=== PATIENT | female | born 1955 | race Caucasian/White ===

== ENCOUNTER → 2022-10-08 00:45 | Outpatient (CLI) | payer MEDICARE, SELFPAY ==
--- OUTSIDE RECORDS SUMMARY | 2022-10-08 00:47 | XMS_ITS | Encounter Summary ---
:1955 Author Organization [facility] Address [address] [place] [address] Care Team Providers Name Role Phone Unknown, Provider Primary Care Provider Encounter Details Date Type Department Care Team Description 05/07/2011 Results Only [facility] Nicole Morales MD Laboratory Services - [address] [address] [place] [address] [phone] Social History Tobacco Use Types Packs/Day Years Used Date Smoking Tobacco: Never Assessed Sex Assigned at Date Recorded Not on file documented as of this encounter Plan of Treatment Not on filedocumented as of this encounter Procedures Procedure Name Priority Date/Time Associated Diagnosis Comme [facility] SURGICAL PATHOLOGY Routine 05/07/2011 0:00 EDT Re sults for this procedure are i n the results section. documented in this encounter Results SURGICAL PATHOLOGY (05/07/2011 0:00 EDT) Component Value Ref Test Analysis Performed At [facility] Method Time Signature Pathology SURGICAL PATHOLOGY REPORT ? DUGLAS HER Report: Reports generated via electr artandseek interface contain original data; ? ASHELY RITCHIE however they are lacking the format of the original report. ? Caution should be taken when reading/interpreting unformatted reports. ? Name: ? JUSTINO, MARIAMA ? Accession #: ? [id number] ? : ? 1955 (Age: 55) ??F ? Collec t Date: ? 05/07/2011 ? Location: ? [facility] ? Re ceive Date: ? 05/18/2011 ? Provider: ERNIE BRIONESQUIST MD ? Copy to: ? Final Pathologic Diagnosis: ? Skin of leg, right, e xcision: ? 1. ?Melanocytic nevus, combined type (intradermal and deep penetrating ?? types). ??See comment. ? - Margins of excision negative. ? Comment: ? Deeper levels have be en examined on block (A1). This case has been reviewed by Dr. Merry Juarez who conc urs with the above diagnosis. ??(Dr. Yanez)/ljn ? Document reviewed and electr onically signed by: ? LA YANEZ MD ? Report ??Date: 05/25/2011 16 :52 ? By the signature above, the attending physician certifies that he/she has ? personally conducted a gross and/or microscopic examination of the described ? specimens and rendered or co nfirmed the above diagnosis. ? Specimen(s) Received: ? Atypical mole R leg ? Clinical History: ? Clinical diagnosis co de: 448.1 ? Gross Description: ? Received in formalin labelled Justino, Mariama and mole R leg is an ? unoriented elliptical excisi on of noriega-white skin measuring 1.1 x 0.6 cm and is ?? excised to a depth of 0.2 cm . ??There is a central, 0.2 x 0.2 cm, irregular, la macule. ??The margins are in ked. ??The specimen is serially sectioned and entirely submitted as (A1) central se ctions and (A2) tips reverse en face. ??(Arminda Mitchell)/[facility] ? End of Report ? Specimen (Source) Anatomical Collection Method Collection Time Re ceived Time Location / / Volume Laterality 05/07/2011 05/18/2011 11:3 0 EDT Ernie Morales MD PATHOLOGY ORDERABLES Performing Organization Address City/State/ZIP Code Phon e Number [facility] [address] [place] [address] SERVICES [facility] [address] [place] [address] documented in this encounter Visit Diagnoses Not on filedocumented in this encounter Care Teams Packaging Coordinator Relationship Specialty Start Date End Date Unknown, Provider, PCP - General 05/18/11 05/19/11 documented as of this encounter
--- OUTSIDE RECORDS SUMMARY | 2022-10-08 00:47 | XMS_ITS | Encounter Summary ---
:1955 Author Organization [facility] [place] [address] Care Team Providers Name Role Phone Ernie Morales MD Primary Care Provider Encounter Details Date Type Department Care Team Description 06/13/2020 Ancillary Mammography at [facility] ductal Procedure Chandrakant Meléndez MD carcinoma of right [address] [facility] breast [place], [place] [address] HEMATOLOGY/ONCOL [phone] [place] [address] Social History Tobacco Use Types Packs/Day Years Used Date Smoking Tobacco: Never Smokeless Tobacco: Never Alcohol Use Standard Drinks/Week Comments Not Asked 0.8 (1 standard drink = 0.6 oz pure alco hol) Sex Assigned at Date Recorded Female 07/09/2021 3:12 PM EDT documented as of this encounter Plan of Treatment Upcoming Encounters Date Type Specialty Care Team Description 10/27/2022 Appointment Radiology Carie Sands CRA OFFICER [address] [place], [place] [address] (Wo rk) 10/27/2022 Appointment Radiology Carie Sands CRA OFFICER [address] [place], [place] [address] (Wo rk) documented as of this encounter Procedures Procedure Name Priority Date/Time Associated Diagnosis Comme nts MAMMO SCREENING CAD Routine 06/13/2020 10:50 Infiltrating duct al Results for this AND VINNY LEFT AM EDT carcinoma of right procedur e are in breast the results section. documented in this encounter Results Mammo Screening Cad and Vinny Left (06/13/2020 10:50 AM EDT) Anatomical Region Laterality Modality Breast Left Mammography Specimen (Source) Anatomical Location Collection Method / Collectio n Time Received Time / Laterality Volume Impressions 06/15/2020 6:22 PM EDT There is no mammographic evidence of breast malignancy appreciated. Routine screening mammography is suggest ed. BIRADS 2: Benign Finding. A summary of these findings will be conv eyed to the patient by mail. Thank you for letting us participate in the care of this patient. For questions regarding this report, please contact e number below. ? Narrative 06/15/2020 6:22 PM EDT EXAMINATION: MAMMO SCREENING CAD AND VINNY LEFT CLINICAL HISTORY: f/u screening hx right mastectomy COMPARISON: Relevant prior in PACS. VIEWS: Left MLO and CC. In addition to r outine 2-D imaging, this exam was also performed with 3-D tomographic imaging i n the MLO and CC projections. CAD is reviewed. BREAST COMPOSITION: ??The breasts are al most entirely fatty. There is no mammographic evidence of a s uspicious mass, architectural distortion, or suspicious calcifications . 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
--- OUTSIDE RECORDS SUMMARY | 2022-10-08 00:47 | XMS_ITS | Encounter Summary ---
:1955 Author Organization [facility] [place] [address] Care Team Providers Name Role Phone Unknown Primary Care Provider Unavailable Reason for Visit Reason Onset Date Comments Pre Procedure Call 10/16/2021 Encounter Details Date Type Department Care Team Description 10/16/2021 Telephone Orthopaedics at [place] Devin Fernandez [place] [address] ORTHOPAEDIC SURG [place], [place] [address] (Wo rk) Social History Tobacco Use Types Packs/Day Years Used Date Smoking Tobacco: Never Smokeless Tobacco: Never Alcohol Use Standard Drinks/Week Comments Yes 0.8 (1 standard drink = 0.6 oz pure alco hol) very little Sex Assigned at Date Recorded Female 07/09/2021 3:12 PM EDT documented as of this encounter Miscellaneous Notes Telephone Encounter - Mari Antunez - 10/16/2021 9:29 AM EST Left a message for patient that she is scheduled here at for cardiology clearance on 11/18/21 @ 10:05am. Asked her to reach out to her local cardiologists office to have them fax her most recent office note to [phone]. documented in this encounter Plan of Treatment Upcoming Encounters Date Type Specialty Care Team Description 10/27/2022 Appointment Radiology Carie Sands , TICKET MANAGER [address] [place], [place] [address] (Wo rk) 10/27/2022 Appointment Radiology Carie Sands , TICKET MANAGER [address] [place], [place] [address] (Wo rk) documented as of this encounter Visit Diagnoses Not on filedocumented in this encounter Care Teams Manufacturing Engineering Technician Relationship Specialty Start Date End Date Unknown PCP - General 08/03/21 08/31/22 None documented as of this encounter
--- OUTSIDE RECORDS SUMMARY | 2022-10-08 00:47 | XMS_ITS | Encounter Summary ---
:1955 Author Organization [place] [address] Care Team Providers Name Role Phone Unknown Primary Care Provider Unavailable Reason for Visit Reason Onset Date Comments Pre Procedure Call 08/12/2022 Encounter Details Date Type Department Care Team Description 08/12/2022 Telephone Orthopaedics at [facility] Devin Fernandez [place] [address] ORTHOPAEDIC SURG [place] [address] (Wo rk) Social History Tobacco Use Types Packs/Day Years Used Date Smoking Tobacco: Never Smokeless Tobacco: Never Alcohol Use Standard Drinks/Week Comments Yes 0.8 (1 standard drink = 0.6 oz pure alco hol) very little Sex Assigned at Date Recorded Female 07/09/2021 3:12 PM EDT documented as of this encounter Miscellaneous Notes Telephone Encounter - Roxie Stack M - 08/12/2022 11:29 AM EDT Who is calling? Dania Best call back number: [phone] Best time to call back between 8:00 am & 5:00 pm: any time Can we leave a message? yes When is your procedure? 09/07/22 Who is your surgeon? Dr. Devin Fernandez What procedure are you having? LT CTR What is the question you would like to ask the clinical care team? Dania had her appointment with the housing grant analyst to clear her for her upcoming surgery. She said they would not send the note unless wecalled to request it. I called and spoke with Maribell in Dr. Mcgregor's office and provided the pre-op testing fax # [phone] for them to send the note from today, 08/12/22 to clear her for surgery. Contacted: Dr. Qasim Mcgregor's Office PH: [phone] documented in this encounter Plan of Treatment Upcoming Encounters Date Type Specialty Care Team Description 10/27/2022 Appointment Radiology Carie Sands APRN [address] [place], [place] [address] (Wo rk) 10/27/2022 Appointment Radiology Carie Sands APRN [address] [place], [place] [address] (Wo rk) documented as of this encounter Visit Diagnoses Not on filedocumented in this encounter Care Teams Mattress And Foundation Sewer Relationship Specialty Start Date End Date Unknown PCP - General 08/03/21 08/31/22 None documented as of this encounter
--- OUTSIDE RECORDS SUMMARY | 2022-10-08 00:47 | XMS_ITS | Encounter Summary ---
:1955 Author Organization [facility] [place] [address] Care Team Providers Name Role Phone Ernie Morales MD Primary Care Provider Encounter Details Date Type Department Care Team Description 05/10/2018 Hospital XRay at [facility] Lisandro Bermudez Primary osteoarthritis invol ving multiple joints; Encounter [facility] MD Savi [place] [address] RHE[address]AT[address]Y DEPT. [phone] [place], [place] [address] Social History Tobacco Use Types Packs/Day Years Used Date Smoking Tobacco: Never Smokeless Tobacco: Never Alcohol Use Standard Drinks/Week Comments Not Asked 0.8 (1 standard drink = 0.6 oz pure alco hol) Sex Assigned at Date Recorded Female 07/09/2021 3:12 PM EDT documented as of this encounter Medications at Time of Discharge Medication Sig Dispensed Refills Start Date End Date atenolol (TENORMIN) 25 mg daily. 0 03/28/2018 Tablet Cyanocobalamin 2,[address] under the 0 Tablet, Sublingual tongue daily. Coenzyme Q10 200 mg Capsule Take by mouth 0 daily. Potassium 99 mg Tablet Take by mouth 0 daily. loratadine (CLARITIN) 10 mg Take 10 mg by mouth 0 Tablet daily. cholecalciferol, vitamin D3, Take 200 mg by 0 (MAXIMUM D3 ORAL) mouth daily. simvastatin (ZOCOR) 20 mg Take 20 mg by mouth 0 0 04/02/2017 Tablet nightly. multivitamin (THERAGRAN) Take 1 tablet by 0 tablet mouth daily. aspirin 81 mg EC tablet Take 81 mg by mouth 0 three times a week. CIS Free Text Med - turkish 0 05/18/20 10 tincture CIS Free Text Med - Fish 0 05/18/2010 Keo-Uqttd5-Bav E-Flax Oil PARoxetine (PAXIL) 10 mg 20 MG = 2 0 05/18/2010 tablet Tablet(s), PO, q HS documented as of this encounter Plan of Treatment Upcoming Encounters Date Type Specialty Care Team Description 10/27/2022 Appointment Radiology Carie Sands APRN [address] [place] [place], [place] [address] (Wo rk) 10/27/2022 Appointment Radiology Carie Sands APRN [address] [place] [place], [place] [address] (Wo rk) documented as of this encounter Procedures Procedure Name Priority Date/Time Associated Diagnosis Comme nts XR HANDS MIN 3 Routine 05/10/2018 2:37 PM Primary osteoarthrit is Results for this VIEWS BILAT EDT involving multiple procedure are in joints the results Inflammatory arthritis secti on. documented in this encounter Results XR Hands Min 3 views Bilat (05/10/2018 2:37 PM EDT) Anatomical Region Laterality Modality Hand Bilateral Digital Radiography Specimen (Source) Anatomical Location Collection Method / Collectio n Time Received Time / Laterality Volume Impressions 05/10/2018 4:41 PM EDT 1. ??Multifocal osteoarthropathy, most severe in the left first carpometacarpal joint. 2. ??No abnormal soft tissue calcificati ons to suggest crystal deposition arthropathy. 3. ??Questionable nonspecific erosion ve rsus sequela of old injury of the left radial styloid process where there is mi ld osseous irregularity in a rounded configuration. Narrative 05/10/2018 4:41 PM EDT EXAMINATION: XR HANDS MIN 3 VIEWS BILAT CLINICAL HISTORY: Osteoarthritis with in flammatory component, castro at #1 IP and MCP bilaterally. ?? Evidence of crstal d isease? TECHNIQUE: PA, oblique, lateral, and ball-catcher's views of the bilateral hands. COMPARISON: None FINDINGS: No visible fracture or malalignment. No focal soft tissue swelling or abnormal soft tissue calcifications. Severe osteo arthropathy of the left first carpometacarpal joint where there is sev ere joint space narrowing, subchondral sclerosis, marginal osteophyte formation . Mild multifocal osteoarthropathy of the thumb and fingers, most pronounced a t the index finger and small finger DIP joints. There is mild osteoarthropathy o f the thumb IP and MCP joints. Mild irregularity of the left radial styloid process which could reflect sequela of old injury versus a small nonspecific er osion. Procedure Note Yanira Perez MD - 05/10/2018Formattin g of this note might be different from the original. EXAMINATION: XR HANDS MIN 3 VIEWS BILAT CLINICAL HISTORY: Osteoarthritis with in flammatory component, castro at #1 IP and MCP bilaterally. Evidence of crstal dise ase? TECHNIQUE: PA, oblique, lateral, and ball-catcher's views of the bilateral hands. COMPARISON: None FINDINGS: No visible fracture or malalignment. No focal soft tissue swelling or abnormal soft tissue calcifications. Severe osteo arthropathy of the left first carpometacarpal joint where there is sev ere joint space narrowing, subchondral sclerosis, marginal osteophyte formation . Mild multifocal osteoarthropathy of the thumb and fingers, most pronounced a t the index finger and small finger DIP joints. There is mild osteoarthropathy o f the thumb IP and MCP joints. Mild irregularity of the left radial styloid process which could reflect sequela of old injury versus a small nonspecific er osion. IMPRESSION 1. Multifocal osteoarthropathy, most sev ere in the left first carpometacarpal joint. 2. No abnormal soft tissue calcification s to suggest crystal deposition arthropathy. 3. Questionable nonspecific erosion vers us sequela of old injury of the left radial styloid process where there is mi ld osseous irregularity in a rounded configuration. Lisandro Bermudez MD IMG DX ORDERABLES documented in this encounter Visit Diagnoses Diagnosis Primary osteoarthritis involving multipl e joints Inflammatory arthritis Unspecified inflammatory polyarthropathy documented in this encounter Care Teams Pegger Relationship Specialty Start Date End Date Ernie Morales MD PCP - General 10/13/10 08/02/21 documented as of this encounter
--- OUTSIDE RECORDS SUMMARY | 2022-10-08 00:47 | XMS_ITS | Encounter Summary ---
:1955 Author Organization [facility] [place] [address] Care Team Providers Name Role Phone Ernie Morales MD Primary Care Provider Reason for Referral Consultation (Routine) - Closed Specialty Diagnoses / Procedures Referred By Contact Refer red To Contact Neurology Diagnoses Numbness and tingling of left hand Chayo Vega PA Ndp Neurology [facility] [address] R [address] [place] [address] [place] [phone] Fax: Referral ID Status Reason Start Date Expiration Date Visits V isits Requested Authorized [id number] Closed Consult, 04/03/2021 04/03/2022 1 1 Test & Treat Encounter Details Date Type Department Care Team Description 04/03/2021 Telephone Orthopaedics at [facility] [place] [address] Social History Tobacco Use Types Packs/Day Years Used Date Smoking Tobacco: Never Smokeless Tobacco: Never Alcohol Use Standard Drinks/Week Comments Not Asked 0.8 (1 standard drink = 0.6 oz pure alco hol) Sex Assigned at Date Recorded Female 07/09/2021 3:12 PM EDT documented as of this encounter Miscellaneous Notes Telephone Encounter - Zachery [place] - 04/03/2021 2:14 PM EDT Patient calls in requesting that a referral for an EM[place] be [place] as they have earlier openings than the [place] location (June 2021). A new referral was generated and sent to [facility]. All questions and concerns were answered at this time. documented in this encounter Plan of Treatment Upcoming Encounters Date Type Specialty Care Team Description 10/27/2022 Appointment Radiology Carie Sands , CARTON GLUING MACHINE OPERATOR [address] [place], [place] [address] (Wo rk) 10/27/2022 Appointment Radiology Carie Sands APRN [address] [place], [place] [address] (Wo rk) Scheduled Referrals Name Type Priority Associated Diagnoses Order S chedule Referral to Outpatient Referral Routine Numbness and Ordered: Neurology tingling of left 04/03/2021 hand documented as of this encounter Visit Diagnoses Diagnosis Numbness and tingling of left hand documented in this encounter Care Teams Assistant Gm Of Content & Delivery Relationship Specialty Start Date End Date Ernie Morales MD PCP - General 10/13/10 08/02/21 documented as of this encounter
--- OUTSIDE RECORDS SUMMARY | 2022-10-08 00:47 | XMS_ITS | Encounter Summary ---
:1955 Author Organization [facility] [place] [address] Care Team Providers Name Role Phone Ernie Morales MD Primary Care Provider Reason for Referral Consultation (Routine) - Closed Specialty Diagnoses / Procedures Referred By Contact Refer red To Contact Hematology and Oncology Diagnoses Infiltrating ductal carcinoma of right breast Family history of breast cancer in sister Dania Hillman, [facility] Hem Onc Office [address] [address] HEMATOLOGY/[place] [address] Referral ID Status Reason Start Date Expiration Date Visits V isits Requested Authorized [id number] Closed Consult, 07/01/2020 07/01/2021 1 1 Test & Treat Reason for Visit Reason Comments Follow-up Encounter Details Date Type Department Care Team Description 07/01/2020 Office Visit Hematology Dania Ornelas MD [facility] HEMATOLOGY/[place] [address] 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; Oncology at [facility] She Salvador MD [facility] HEMATOLOGY [place] [address] [place] [address] Social History Tobacco Use Types Packs/Day Years Used Date Smoking Tobacco: Never Smokeless Tobacco: Never Alcohol Use Standard Drinks/Week Comments Not Asked 0.8 (1 standard drink = 0.6 oz pure alco hol) Sex Assigned at Date Recorded Female 07/09/2021 3:12 PM EDT documented as of this encounter Last Filed Vital Signs Vital Sign Reading Time Taken Comments Blood Pressure 126/69 07/01/2020 1:27 PM EDT Pulse 51 07/01/2020 1:27 PM EDT Temperature 36.8 ??C (98.2 ??F) 07/01/2020 1:27 PM EDT Respiratory Rate 18 07/01/2020 1:27 PM EDT Oxygen Saturation 97% 07/01/2020 1:27 PM EDT Inhaled Oxygen Concentration - - Weight 89.4 kg (197 lb) 07/01/2020 1:27 PM EDT Height 160 cm (5' 2.99) 07/01/2020 1:27 PM EDT Body Mass Index 34.91 07/01/2020 1:27 PM EDT documented in this encounter Progress Notes Dania Hillman MD - 07/01/2020 1:30 PM EDT Subjective: Patient ID: Dania Adams is a 64 y.o. female. Cc: breast cancer Interval history: Dania is here for routine f/u. She is doing well. No concerns today. She had her mammogram done in [place] because the cost was much lower, $500 instead of $900 here, and with insurance coverage it was reduced to $200. She also had blood work in January with her PCP showing an elevated calcium, repeat in May was normal. HPI right breast, August 1997. a. 5-mm cancer, 0/9 lymph nodes involved with tumor. c. s/p right modified radical mastectomy. 1. s/p tram reconstruction. 2. s/p left reduction mammoplasty. d. Immunohistochemistries weakly positive CA, negative ER. Review of Systems Constitutional: Negative. HENT: Negative. Eyes: Negative. Respiratory: Negative. Cardiovascular: Negative. Gastrointestinal: Negative. Endocrine: Negative. Genitourinary: Negative. Musculoskeletal: Negative. Skin: Negative. Allergic/Immunologic: Negative. Neurological: Negative. Hematological: Negative. Psychiatric/Behavioral: Negative. Objective: Physical Exam Vitals signs reviewed. HENT: Head: Normocephalic. Right Ear: External ear normal. Left Ear: External ear normal. Nose: Nose normal. Mouth/Throat: Mouth: Mucous membranes are moist. Eyes: Conjunctiva/sclera: Conjunctivae normal. Pupils: Pupils are equal, round, and reactive to light. Neck: Musculoskeletal: Normal range of motion. Cardiovascular: Rate and Rhythm: Normal rate. Pulses: Normal pulses. Pulmonary: Effort: Pulmonary effort is normal. No retractions. Chest: Chest wall: No lacerations, deformity, swelling, tenderness, crepitus or edema. Breasts: Right: No mass, skin change or tenderness. Left: No inverted nipple, mass, nipple discharge, skin change or tenderness. Abdominal: General: Bowel sounds are normal. Musculoskeletal: Normal range of motion. Skin: General: Skin is warm. Neurological: General: No focal deficit present. Mental Status: She is alert. Psychiatric: Mood and Affect: Mood normal. Behavior: Behavior normal. Thought Content: Thought content normal. Judgment: Judgment normal. Left mammo viewed independently by me , benign cat 2. FHx: mother had colon cancer Sister with lymphoma Paternal cousin with breast cancer and lymphoma Paternal cousin with melanoma MGM with breast cancer MGA with colon cancer No hx of genetic testing a son and a daughter are well Assessment and Plan: No problem-specific Assessment & Plan notes found for this encounter. #1 Breast cancer--64 yo with stage I right breast cancer T1bN0 ER neg CA low in 1996. 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
--- OUTSIDE RECORDS SUMMARY | 2022-10-08 00:47 | XMS_ITS | Encounter Summary ---
:1955 Author Organization [facility] [place] [address] Care Team Providers Name Role Phone Ernie Morales MD Primary Care Provider Reason for Visit Consultation (Routine) - Closed Specialty Diagnoses / Procedures Referred By Contact Refer red To Contact Neurology Diagnoses Numbness and tingling of left hand Chayo Vega PA [facility] 3c [facility] [place] [address] [place] [address] Referral ID Status Reason Start Date Expiration Date Visits V isits Requested Authorized [id number] Closed Consult, 03/18/2021 03/18/2022 1 1 Test & Treat Encounter Details Date Type Department Care Team Description 07/10/2021 Procedure visit Neurology at [facility] Trev Moon MD Carpal tunnel [facility] syndrome on left [facility] [address], [place], [place] [phone] Social History Tobacco Use Types Packs/Day Years Used Date Smoking Tobacco: Never Smokeless Tobacco: Never Alcohol Use Standard Drinks/Week Comments Yes 0.8 (1 standard drink = 0.6 oz pure alco hol) very little Sex Assigned at Date Recorded Female 07/09/2021 3:12 PM EDT documented as of this encounter Last Filed Vital Signs Vital Sign Reading Time Taken Comments Blood Pressure 128/73 07/10/2021 10:52 AM EDT Pulse 51 07/10/2021 10:52 AM EDT Temperature - - Respiratory Rate - - Oxygen Saturation - - Inhaled Oxygen Concentration - - Weight 85.2 kg (187 lb 12.8 07/10/2021 10:52 AM with sh oes on oz) EDT Height 160 cm (5' 3) 07/10/2021 10:52 AM reported EDT Body Mass Index 33.27 07/10/2021 10:52 AM EDT documented in this encounter Progress Notes Trev Moon MD - 07/10/2021 11:00 AM EDT Images from the original note were not included. NEUROLOGY CLINIC [facility] [address] [place] [id number] EMG/NCS REPORT 07/10/2021 Patient name: Dania Adams Date of : 1955 Referring provider: Chayo Vega PA [facility] DR ORTHOPAEDIC SURGERY [place] [id number] History and Examination: See clinic notes Ht 160 cm (5' 3) Comment: reported Wt 85.2 kg (187 lb 12.8 oz) Comment: with shoes on BMI 33.27kg/m?? Nerve Conduction Studies For sensory nerve conduction studies, the amplitude is measured [id number], the latency reported is the distal peak latency, and the conduction velocity, if measured, is determined from onset latencies and is over the extremity. For motor nerve conduction studies, the amplitude is measured [id number], the latency reportedis the distal onset latency,the conduction velocity is calculated over the extremity, and the F wavelatency is the minimum latency. Unless otherwise noted, the upper limb temperature was maintained above 31 degrees Celsius and lowerlimb above 30 degrees. Technologist: Bry Sensory Nerve Conduction Nerve / Sites Rec. Site Peak Lat TUBING DRIER Amp Ref. Distance Onset Andrea Ref. ms ??V ??V mm m/s m/s L Median - Ortho-Anti (Mid palm, Dig II) Mid Palm Wrist NR NR ?45.0 ?45.0 Dig II Wrist NR NR ?6.0 ?45.0 L Ulnar - Ortho-Anti (Dig V) Dig V Wrist 2.8 8.6 ?5.0 110 56.2 ?45.0 Motor Nerve Conduction Nerve / Sites Muscle Latency Ref. Amplitude Ref. Distance Velocity Ref. ms ms mV mV mm m/s m/s L Median - APB Wrist APB 5.3 ?4.2 6.0 ?4.5 80 Elbow APB 10.3 5.7 ?4.5 240 48.4 ?43.0 L Ulnar - ADM Wrist ADM 2.3 ?3.9 8.2 ?4.5 80 B.Elbow ADM 5.6 7.5 ?4.5 210 63.0 ?50.0 A.Elbow ADM 7.6 6.1 ?4.5 110 55.0 ?50.0 F Wave Nerve F Lat Ref. M Lat Min M Lat ms ms ms ms L Median - APB 31.8 ?32.0 5.7 5.7 L Ulnar - ADM 26.1 ?32.0 2.7 2.7 Electromyography The study was performed with a concentric needle electrode. Fibrillation and fasciculation activity is graded from none (0) to continuous (4+). The configuration and recruitment pattern of motor unit action potentials under voluntary control are described in the accompanying report. EMG Summary Table Spontaneous Activity Volitional MUAPs Muscle Fibs PSW Fasc Poly Amp Dur Recruit Activation L. FDI 0 0 0 NL NL NL Full MAX L. APB 0 0 0 NL NL NL Full MAX Findings ??? Absent left median sensory. ??? Low amplitude distal median motor latency on the left side. ??? Normal ulnar study left. ??? Needle examination with a concentric needle electrode of Left APB and FDI didn't show any denervation changes. Diagnostic Interpretation The study was ABNORMAL. 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 WRIST Notes Left CTS + Trev Moon MD Department of Neurology [facility] documented in this encounter Plan of Treatment Upcoming Encounters Date Type Specialty Care Team Description 10/27/2022 Appointment Radiology Carie Sands , DOCUMENT SCANNER [address] [place], [place] [address] (Wo rk) 10/27/2022 Appointment Radiology Carie Sands , DOCUMENT SCANNER [address] [place], [place] [address] (Wo rk) Scheduled Referrals Name Type Priority Associated Diagnoses Order S chedule Referral to Outpatient Referral Routine Numbness and Ordered: Neurology tingling of left 03/18/2021 hand documented as of this encounter Visit Diagnoses Diagnosis Carpal tunnel syndrome on left Carpal tunnel syndrome documented in this encounter Care Teams Bridge Painter Helper Relationship Specialty Start Date End Date Ernie Morales MD PCP - General 10/13/10 08/02/21 documented as of this encounter
--- OUTSIDE RECORDS SUMMARY | 2022-10-08 00:47 | XMS_ITS | Clinical Summary ---
:1955 Author Organization [facility] [place] [address] Care Team Providers Name Role Phone WichoCarie Keith ADAMS Primary Care Provider Allergies Active Allergy Reactions Severity Noted Date Comments Adhesive Tape skin blisters Morphine Sulfate 05/25/2018 Other react ion(s): decrease resp rate Unclassified Drug 05/12/2011 Some types of sutures Medications Medication Sig Dispensed Refills Start Date End Date Status CIS Free Text Med - kyrgyz tincture 0 Active CIS Free Text Med - Fish 0 05/18/2010 Active Cya-Onlae2-Ium E-Flax Oil Additional Information Patient taking differently: Oral 2 TIMES DAILY, Reported on 07/10/2021 PARoxetine (PAXIL) 10 mg tablet 20 MG = 2 Tablet(s), PO, q 0 05/18/2010 Active HS multivitamin (THERAGRAN) tablet Take 1 tablet by mouth 0 Active daily. aspirin 81 mg EC tablet Take 81 mg by mouth three 0 06/11/2011 Active times a week. simvastatin (ZOCOR) 20 mg Tablet Take 20 mg by mouth nightly. 0 04/02/2017 Active atenolol (TENORMIN) 25 mg Tablet daily. 0 018 Active Cyanocobalamin 2,500 mcg Tablet, Place under the tongue 0 Active Sublingual daily. Coenzyme Q10 200 mg Capsule Take by mouth daily. 0 Active Potassium 99 mg Tablet Take by mouth daily. 0 Active loratadine (CLARITIN) 10 mg Take 10 mg by mouth daily. 0 Active Tablet cholecalciferol, vitamin D3, Take 200 mg by mouth daily. 0 Active (MAXIMUM D3 ORAL) famotidine (Pepcid) 40 mg Tablet Take 40 mg by mouth nightly. 0 Active betamethasone valerate (VALISONE) Apply topically. 0 07/01/2021 Active 0.1 % Cream calcium-vitamin D3 600 mg Take by mouth. 0 Active calcium- 200 unit Capsule polycarbophil (FiberCon) 625 mg Take by mouth. 0 09/2021 Active Tablet amoxicillin (Amoxil) 250 mg Take 200 mg by mouth every 0 Active Capsule hour as needed. 1 hour prior to dental work atenoloL (Tenormin) 25 mg Tablet every 24 hours. 0 Active clobetasoL (Temovate) 0.05 % Every 12 hours. 0 Active Cream Active Problems Problem Noted Date Carpal tunnel syndrome on left 08/03/2021 Trigger finger, right ring finger 03/18/2021 Numbness and tingling of left hand 03/18/2021 Primary osteoarthritis involving multiple joints 05/10 Trigger finger 05/10/2018 Hypercalcemia 05/10/2018 Inflammatory arthritis 05/10/2018 Presence of left artificial knee joint 05/10/2018 Carpal tunnel syndrome, bilateral 05/10/2018 Infiltrating ductal carcinoma of breast 05/12/2011 Overview: right breast, August 1997. a. 5-mm cancer, 0/9 lymph nodes involved with tumor. c. s/p right modified radical mastectomy . 1. s/p tram reconstruction. 2. s/p left reduction mammoplasty. d. Immunohistochemistries weakly positiv e [place], negative ER. E. Adjuvant therapy was not recommended. GERD (gastroesophageal reflux disease) 05/12/2011 Hot flashes 05/12/2011 Overview: Longstanding h/o hot flashes. a. Marked improvement in past with effex or. b. Ongoing rx with paxil. 1. Trial of increased dose, 20 mg qhs, . Vertigo 05/12/2011 Overview: Intermittent episodes of vertigo. Encounters Date Type Specialty Care Team Description 09/21/2022 Office Visit Orthopaedics Salome Chawla, S/P endo scopic carpal PA tunnel release 09/21/2022 Travel 09/19/2022 Travel 09/07/2022 Anesthesia Event Surgery Leonardo Lincoln MD Whittaker, David M, CRNA 09/07/2022 Surgery Surgery Devin Fernandez MD ENDOSCO PY WRIST W/ RELEASE TRANSVE RSE CARPAL LIGAMENT (WRVU 6.39) 09/07/2022 Hospital Encounter Surgery Devin Fernandez MD 08/12/2022 Telephone Orthopaedics Devin Fernandez MD Pre Pro cedure Call from Last 3 Months Immunizations Name Administration Dates Next Due Influenza Vaccine PF, Quadrivalent (6-35 Mos) 08/11/2017 Influenza Vaccine, Whole 09/20/2005 Td Vaccine, Absorbed, Adult 01/20/2016 Zoster Vaccine, Live 12/04/2010 Family History Medical History Relation Comments Breast Cancer Cousin Breast Cancer Maternal Grandmother Relation Status Comments Cousin Alive Maternal Grandmother Social History Tobacco Use Types Packs/Day Years Used Date Smoking Tobacco: Never Smokeless Tobacco: Never Alcohol Use Standard Drinks/Week Comments Yes 0.8 (1 standard drink = 0.6 oz pure alco hol) very little Sex Assigned at Date Recorded Female 07/09/2021 3:12 PM EDT Last Filed Vital Signs Vital Sign Reading Time Taken Comments Blood Pressure 116/69 09/21/2022 9:07 AM EDT Pulse 56 09/07/2022 8:02 AM EDT Temperature 36.1 ??C (97 ??F) 09/07/2022 7:58 AM EDT Respiratory Rate 14 09/07/2022 7:58 AM EDT Oxygen Saturation 97% 09/07/2022 8:02 AM EDT Inhaled Oxygen Concentration - - Weight 87.5 kg (193 lb) 09/07/2022 6:27 AM EDT Height 160 cm (5' 3) 09/07/2022 6:27 AM EDT Body Mass Index 34.19 09/07/2022 6:27 AM EDT Plan of Treatment Upcoming Encounters Date Type Specialty Care Team Description 10/27/2022 Appointment Radiology Carie Sands , INSPECTOR FINAL ASSEMBLY MECHANICAL [address] [place] [id number] (Wo rk) 10/27/2022 Appointment Radiology Carie Sands , INSPECTOR FINAL ASSEMBLY MECHANICAL [address] [place], [place] [address] (Wo rk) Health Maintenance Due Date Last Done Comments Covid-19 Vaccine (#1) 03/26/1956 Hepatitis C Screening 1973 Tdap adult 1974 Breast Cancer Share Decision 1995 Needed Colonoscopy 2000 Zoster vaccine (2 of 3) 01/29/2011 12/04/2010 Pneumoccocal Vaccine: 65+ (1 - 2020 PCV) Diabetes Screening (HgbA1C or 05/10/2021 05/10/2018, 2016, Glucose) 05/12/2016, Additional history exists Breast Cancer screening 06/13/2022 06/13/2020, 05/25/2018, 05/18/2017, Additional history exists Influenza (Flu) vaccine (1 of 1 - 07/22/2022 08/11/2017, Influenza standard series) Tetanus vaccine 01/19/2026 01/20/2016 Bone Density Scan Completed 05/25/2018 Procedures Procedure Name Priority Date/Time Associated Comments Diagnosis ORDS - PROVIDER CARE 09/08/2022 12:00 AM Results for this SCAN EDT procedure are i n the results section. ENDOSCOPY WRIST W/ 09/07/2022 7:36 AM Carpal tunnel RELEASE TRANSVERSE EDT syndrome on left CARPAL LIGAMENT (WRVU 6.39) ORDS - PROVIDER CARE 09/03/2022 12:00 AM Results for this SCAN EDT procedure are i n the results section. ORDS - PROVIDER CARE 09/02/2022 12:00 AM Results for this SCAN EDT procedure are i n the results section. from Last 3 Months Results SCAN DOC: ORDS - PROVIDER CARE (09/08/2022 12:00 AM EDT)Only the most recent of3 resultswithin the time period is included. Narrative 09/08/2022 12:00 AM EDT This result has an attachment that is no t available. Ordered by an unspecified provider. Scanning Provider MEDIA MGR SCAN EXT ORDR/RSLT from Last 3 Months Insurance Payer Benefit Plan / Subscriber ID Effective Phone Address T ype Group Dates MEDICARE MEDICARE PART A [id number] 2020-Pre [phone] [id number] sent [address] [facility] [place] [phone] AETNA MEDICARE AETNA MEDICARE [id number] 2020-Pres [address] [address] [place] [address] Advance Directives Documents on File Type Date Recorded Patient Film Painter Explanati on Advance Directives and Living 01/19/2011 4:40 PM Will Care Teams Crm Solution Architect Relationship Specialty Start Date End Date Carie Sands APRN PCP - General Family Medicine 09/01/22 [address] [place] [address]
--- OUTSIDE RECORDS SUMMARY | 2022-10-08 00:47 | XMS_ITS | Clinical Summary ---
:1955 Author Organization [facility] Address [address] [place] [address] Care Team Providers Name Role Phone Ernie Morales MD Primary Care Provider Social History Tobacco Use Types Packs/Day Years Used Date Smoking Tobacco: Never Assessed Sex Assigned at Date Recorded Not on file Plan of Treatment Health Maintenance Due Date Last Done Comments Hepatitis C Screen 1955 COVID-19 Vaccine (#1) 03/26/1956 Fall Risk Screening 2020 Care Teams Test Desk Trouble Locator Relationship Specialty Start Date End Date Ernie Morales MD PCP - General 05/20/[address] [place] [address]
--- OUTSIDE RECORDS SUMMARY | 2022-10-08 00:47 | XMS_ITS | Encounter Summary ---
:1955 Author Organization [facility] [place] [address] Care Team Providers Name Role Phone Ernie Morales MD Primary Care Provider Encounter Details Date Type Department Care Team Description 03/18/2021 Hospital Encounter [place] [facility] [place], Devin Bilateral hand pain [address] [place] [address] Dr Pedrito MD [facility] [id number] [place] [phone] [place] [address] Social History Tobacco Use Types Packs/Day Years Used Date Smoking Tobacco: Never Smokeless Tobacco: Never Alcohol Use Standard Drinks/Week Comments Not Asked 0.8 (1 standard drink = 0.6 oz pure alco hol) Sex Assigned at Date Recorded Female 07/09/2021 3:12 PM EDT documented as of this encounter Medications at Time of Discharge Medication Sig Dispensed Refills Start Date End Date famotidine (Pepcid) 40 mg Take 40 mg by mouth 0 Tablet nightly. atenolol (TENORMIN) 25 mg daily. 0 03/28/2018 [...] a week. CIS Free Text Med - congolese 0 05/18/20 10 tincture CIS Free Text Med - Fish 0 05/18/2010 Cpe-Thgow7-Emu E-Flax Oil PARoxetine (PAXIL) 10 mg 20 MG = 2 0 05/18/2010 tablet Tablet(s), PO, q HS documented as of this encounter Plan of Treatment Upcoming Encounters Date Type Specialty Care Team Description 10/27/2022 Appointment Radiology Carie Sands APRN [address] [place], [place] [address] (Wo rk) 10/27/2022 Appointment Radiology Carie Sands APRN [address] [place], [place] [address] (Wo rk) documented as of this encounter Procedures Procedure Name Priority Date/Time Associated Diagnosis Comme nts XR HAND MIN 3 VIEWS Routine 03/18/2021 2:12 PM Bilateral hand pain Results for this BILAT EDT procedure are i n the results section. documented in this encounter Results XR Hand Min 3 views Bilat (Generic) (03/18/2021 2:12 PM EDT) Anatomical Region Laterality Modality Hand Bilateral Digital Radiography Specimen (Source) Anatomical Location Collection Method / Collectio n Time Received Time / Laterality Volume Impressions 03/18/2021 4:44 PM EDT Osteoarthropathy of all IP joints and bilateral basal joints. Thank you for letting us participate in the care of this patient. ??If you are a health care provider and have any questi ons regarding this report, please contact the number below. ??For patients who have questions please contact the health coronary care unit nurse that requested your imaging first. ? Electronically signed by: Jessica pitts MD, [facility] ([phone]), at 03/18/2021 4:44 PM Narrative 03/18/2021 4:44 PM EDT EXAMINATION: XR HAND MIN 3 VIEWS BILAT (GENERIC) CLINICAL HISTORY: bilateral hand pain, , entered by ordering service TECHNIQUE: 3 views each hand COMPARISON: April 2018. FINDINGS: BONES: Normal bone mineralization. No periostit is or ankylosis or acro osteolysis. SOFT TISSUES: No soft tissue calcifications. JOINTS: 2-5 IP joints- osteophytes arise from al l IP joints. There are scattered subchondral cysts mostly in PIP joints. The joint spaces are narrowed. 2-5 MCP joints- relative preserved joint spaces. Thumb (Basal, scaphoid trapezial trapezo id [STT] and 1 MCP & 1 IP joints)- bilateral basal joint osteoarthropathy w ith narrowed joint space and osteophyte formation more pronounced on the left. R elative normal STT joint spaces. Radial carpal joint- preserved joint spa maggy and no erosions. The irregularity at left radial styloid is unchanged and is well corticated. Distal radioulnar joint- congruent Procedure Note Jessica Nicholas MD - 03/18/2021Formatt ing of this note might be different from the original. EXAMINATION: XR HAND MIN 3 VIEWS BILAT ( GENERIC) CLINICAL HISTORY: bilateral hand pain, , entered by ordering service TECHNIQUE: 3 views each hand COMPARISON: April 2018. FINDINGS: BONES: Normal bone mineralization. No periostit is or ankylosis or acro osteolysis. SOFT TISSUES: No soft tissue calcifications. JOINTS: 2-5 IP joints- osteophytes arise from al l IP joints. There are scattered subchondral cysts mostly in PIP joints. The joint spaces are narrowed. 2-5 MCP joints- relative preserved joint spaces. Thumb (Basal, scaphoid trapezial trapezo id [STT] and 1 MCP & 1 IP joints)- bilateral basal joint osteoarthropathy w ith narrowed joint space and osteophyte formation more pronounced on the left. R elative normal STT joint spaces. Radial carpal joint- preserved joint spa maggy and no erosions. The irregularity at left radial styloid is unchanged and is well corticated. Distal radioulnar joint- congruent IMPRESSION Osteoarthropathy of all IP joints and bi lateral basal joints. Thank you for letting us participate in the care of this patient. If you are a health care provider and have any questi ons regarding this report, please contact the number below. For patients w ho have questions please contact the health coronary care unit nurse that requested your imaging first. Electronically signed by: Jessica Nicholas MD, Radiology [place] ([phone]), at 03/18/2021 4:44 PM Devin Fernandez MD IMG DX ORDERABLES documented in this encounter Visit Diagnoses Diagnosis Bilateral hand pain Pain in limb documented in this encounter Care Teams Straightening Press Operator Helper Relationship Specialty Start Date End Date Ernie Morales MD PCP - General 10/13/10 08/02/21 documented as of this encounter
--- OUTSIDE RECORDS SUMMARY | 2022-10-08 00:47 | XMS_ITS | Encounter Summary ---
:1955 Author Organization [facility] [place] [address] Care Team Providers Name Role Phone Carie Sands APRN Primary Care Provider Encounter Details Date Type Department Care Team Description 09/19/2022 Travel Social History Tobacco Use Types Packs/Day Years [...] 10/27/2022 Appointment Radiology Carie Sands APRN [address] [place], [place] [address] (Wo rk) 10/27/2022 Appointment Radiology Carie Sands APRN [address] [place], [place] [address] (Wo rk) documented as of this encounter Visit Diagnoses Not on filedocumented in this encounter Care Teams Supervisor Of Operations Relationship Specialty Start Date End Date Carie Sands APRN PCP - General Family Medicine 09/01/22 [address] [place] [address] documented as of this encounter
--- OUTSIDE RECORDS SUMMARY | 2022-10-08 00:47 | XMS_ITS | Encounter Summary ---
:1955 Author Organization [facility] Address [facility] [place] [address] Care Team Providers Name Role Phone Ernie Morales MD Primary Care Provider Encounter Details Date Type Department Care Team Description 05/25/2018 Hospital XRay at [facility] [place] Curtis Hung Infiltrating ductal carcinom a of breast, right; [facility] MD Carlos Hot flashes; [facility] Gastroesophageal reflux dise ase, esophagitis presence not specified [facility] [id number] HEMATOLOGY/ONCO [phone] [place] [address] Social History Tobacco Use Types Packs/Day Years [...] a week. CIS Free Text Med - japanese 0 05/18/20 10 tincture CIS Free Text Med - Fish 0 05/18/2010 Bir-Cogbz2-Wrp E-Flax Oil PARoxetine (PAXIL) 10 mg 20 MG = 2 0 05/18/2010 tablet Tablet(s), PO, q HS documented as of this encounter Plan of Treatment Upcoming Encounters Date Type Specialty Care Team Description 10/27/2022 Appointment Radiology Carie Sands CADWORX PIPING DESIGNER [address] [place], [place] [address] (Wo rk) 10/27/2022 Appointment Radiology Carie Sands APRN [address] [place], [place] [address] (Wo rk) documented as of this encounter Procedures Procedure Name Priority Date/Time Associated Diagnosis Comme nts DXA CENTRAL SPINE, Routine 05/25/2018 8:49 AM Infiltrating arturo gustavo Results for this HIP, AND/OR WHOLE EDT carcinoma of breast, pr ocedure are in BODY (GENERIC) right the results Hot flashes section. Gastroesophageal reflux disease, esophagitis presence not specified documented in this encounter Results DXA Central-Spine, Hip, And/Or Whole Body (Generic) (05/25/2018 8:49 AM EDT) Anatomical Region Laterality Modality C-spine, Hip N/A Other Specimen (Source) Anatomical Location Collection Method / Collectio n Time Received Time / Laterality Volume Impressions 05/26/2018 11:22 AM EDT * ??Osteopenia by WHO diagnostic criteria. The patient's lowest measurement is only slightly below lower limits of the normal range and is associated with minimal elevation an estimated relative risk. Estimating Fracture Risk: ? The relationship between bone mineral de nsity (BMD) and risk of fracture is well established. As BMD decreases, risk incr eases. Quantifying risk is difficult and is usually limited to estimation of the relative risk - a term which may have limited value when trying to discuss an individual's risk. Estimating the absolute risk for a patient requires an understanding of the incidence rate in a given population and consideration of mu ltiple, partially independent, risk factors in addition to BMD. ? The World Health Organization (WHO) has developed a fracture risk prediction tool that calculates a ten-year risk of major osteoporotic fracture based on femoral neck bone density measurements a nd nine clinical risk factors for individuals who have not been treated fo r osteoporosis. This is available through an interactive web-based [employer] (http://www.shef.ac.uk/FRAX/) and can be used to estimate a given patient's ab solute risk of major osteoporotic fracture or hip fracture over the next 1 0 years. These estimates may prove useful when discussing risk with a patie nt. It is important, however, to understand the tool's limitations and ho w a given individual's risk might differ from the tool's estimate. The tool does not take into account the dose-response associated with most risk factors. For e xample, the significant increase in risk associated with multiple prior fractures compared to a single prior fracture is not taken into account. Similarly, the l ocation of a previous fracture, the amount of glucocorticoids and number of cigarettes smoked are not considered. These limitations are discussed in a Fr equently Asked Questions section of the FRAX website which you are encouraged to review. ? DXA data sheets with BMD measurements an d plots are available in [employer] under the imaging tab. Paper copies will be sent to providers without E- access. If you have received this report without th e data sheet and do not have access to E-, please contact Radiology Transcrip tion at [phone] Tuesday thru Tuesday 8am-4pm. Narrative 05/26/2018 11:22 AM EDT EXAMINATION: DXA CENTRAL-SPINE, HIP, AND/OR WHOLE BODY (GENERIC) CLINICAL HISTORY: h/o breast cancer, ? o steoporosis, ? change from prior TECHNIQUE: Scans were acquired at the [place] mbar spine, left hip and left forearm . Densitometer: Hologic Discovery A COMPARISON: None FINDINGS: Lowest T-score at a diagnostic region of interest: T-score: -1.3, ALLI: Femoral neck, WHO di agnosis: Low bone mass or osteopenia. Procedure Note Fidencio Gaitan MD - 05/26/2018Forma tting of this note might be different from the original. EXAMINATION: DXA CENTRAL-SPINE, HIP, AND /OR WHOLE BODY (GENERIC) CLINICAL HISTORY: h/o breast cancer, ? o steoporosis, ? change from prior TECHNIQUE: Scans were acquired at the [place] mbar spine, left hip and left forearm . Densitometer: Hologic Discovery A COMPARISON: None FINDINGS: Lowest T-score at a diagnostic region of interest: T-score: -1.3, ALLI: Femoral neck, WHO di agnosis: Low bone mass or osteopenia. IMPRESSION * Osteopenia by WHO diagnostic criteria. The patient's lowest measurement is only slightly below lower limits of the normal range and is associated with minimal elevation an estimated relative risk. Estimating Fracture Risk: ? The relationship between bone mineral de nsity (BMD) and risk of fracture is well established. As BMD decreases, risk incr eases. Quantifying risk is difficult and is usually limited to estimation of the relative risk - a term which may have limited value when trying to discuss an individual's risk. Estimating the absolute risk for a patient requires an understanding of the incidence rate in a given population and consideration of mu ltiple, partially independent, risk factors in addition to BMD. ? The World Health Organization (WHO) has developed a fracture risk prediction tool that calculates a ten-year risk of major osteoporotic fracture based on femoral neck bone density measurements a nd nine clinical risk factors for individuals who have not been treated fo r osteoporosis. This is available through an interactive web-based [employer] (http://www.shef.ac.uk/FRAX/) and can be used to estimate a given patient's ab solute risk of major osteoporotic fracture or hip fracture over the next 1 0 years. These estimates may prove useful when discussing risk with a patie nt. It is important, however, to understand the tool's limitations and ho w a given individual's risk might differ from the tool's estimate. The tool does not take into account the dose-response associated with most risk factors. For e xample, the significant increase in risk associated with multiple prior fractures compared to a single prior fracture is not taken into account. Similarly, the l ocation of a previous fracture, the amount of glucocorticoids and number of cigarettes smoked are not considered. These limitations are discussed in a Fr equently Asked Questions section of the FRAX website which you are encouraged to review. ? DXA data sheets with BMD measurements an d plots are available in [employer] under the imaging tab. Paper copies will be sent to providers without E- access. If you have received this report without th e data sheet and do not have access to [employer], please contact Radiology Transcrip tion at [phone] Tuesday thru Tuesday 8am-4pm. Curtis Hung MD IMG DEXA ORDERABLES documented in this encounter Visit Diagnoses Diagnosis Infiltrating ductal carcinoma of breast, right Hot flashes Symptomatic menopausal or female climact iliana states Gastroesophageal reflux disease, esophag itis presence not specified documented in this encounter Care Teams Forming Process Worker Relationship Specialty Start Date End Date Ernie Morales MD PCP - General 10/13/10 08/02/21 documented as of this encounter
--- OUTSIDE RECORDS SUMMARY | 2022-10-08 00:47 | XMS_ITS | Encounter Summary ---
:1955 Author Organization [facility] [place] [address] Care Team Providers Name Role Phone Ernie Morales MD Primary Care Provider Encounter Details Date Type Department Care Team Description 07/10/2021 Notes Only Neurology [place] [facility] [place] [address] [place] [address] [place] [id number] [phone] (Wo rk) Social History Tobacco Use Types [...] Description 10/27/2022 Appointment Radiology Carie Sands , CLIENT RESOLUTION SPECIALIST [address] [place], [place] [address] (Wo rk) 10/27/2022 Appointment Radiology Carie Sands CLIENT RESOLUTION SPECIALIST [address] [place], [place] [address] (Wo rk) documented as of this encounter Visit Diagnoses Not on filedocumented in this encounter Care Teams Invoice Clerk Relationship Specialty Start Date End Date Ernie Morales MD PCP - General 10/13/10 08/02/21 documented as of this encounter
--- OUTSIDE RECORDS SUMMARY | 2022-10-08 00:47 | XMS_ITS | Encounter Summary ---
:1955 Author Organization [facility] [place] [address] Care Team Providers Name Role Phone WichoCarie lowe ANGIE Primary Care Provider Encounter Details Date Type Department Care Team Description 09/07/2022 Hospital Encounter Outpatient Surgery Keith Fernandez MD [facility] [place] [address] [place] [address] [phone] Social History Tobacco Use Types Packs/Day Years Used Date Smoking Tobacco: Never Smokeless Tobacco: Never Alcohol Use Standard Drinks/Week Comments Yes 0.8 (1 standard drink = 0.6 oz pure alco hol) very little Sex Assigned at Date Recorded Female 07/09/2021 3:12 PM EDT documented as of this encounter Last Filed Vital Signs Vital Sign Reading Time Taken Comments Blood Pressure 106/60 09/07/2022 8:02 AM EDT Pulse 56 09/07/2022 8:02 AM EDT Temperature 36.1 ??C (97 ??F) 09/07/2022 7:58 AM EDT Respiratory Rate 14 09/07/2022 7:58 AM EDT Oxygen Saturation 97% 09/07/2022 8:02 AM EDT Inhaled Oxygen Concentration - - Weight 87.5 kg (193 lb) 09/07/2022 6:27 AM EDT Height 160 cm (5' 3) 09/07/2022 6:27 AM EDT Body Mass Index 34.19 09/07/2022 6:27 AM EDT documented in this encounter Discharge Instructions Discharge Sandrita Lopez RN - 09/07/2022 8:04 AM EDT Moderate Sedation You may have received medication before and/or during your procedure, which affects your judgement and reaction time. Do not drive, operate machinery, drink alcoholic beverages, or make any legal decisions for 24 hours. Be careful on stairs, as you may be unsteady on your feet. You may eat a regular diet as tolerated. Do not smoke if you are alone. IV site -- slight redness, or tenderness is normal, you can use a warm compress. If tenderness and redness increases or foul drainage occurs, please contact your M. D. Questions or problems after 5pm or on a weekend: Call the [facility] marshmallow machine operator and ask for the physician on callcovering for your doctor. Patient Priti Valdivia MD - 09/07/2022 7:26 AM EDT Orthopaedic Hand Surgery Same Day Discharge Instructions: General Activities Diet: Start light and progress as tolerated. No alcoholic beverages on the day of surgery or while taking narcotics. If taking narcotics, make sure you are getting plenty of fluids and fiber. In general, care should be taken the first several days following surgery to limit strenuous activity. You want to avoid any activities that you may lose your balance, slip, trip, fall or re-injure your surgery. You may shower tomorrow. Cover your dressing/cast with a plastic bag to keep it dry. No driving while taking narcotic medications or wearing a device (splint, cast, sling, brace) that limits joint mobility. When you feel you can safely control your vehicle and respond to unpredictablesituations you may resume driving. Hand Use Decreased sensation for several hours following surgery is often from the local anesthesia used during the procedure. This will resolve on its own. If a regional anesthetic was used, wear your sling until you regain full function of your limb, andkeep a close eye on the positioning of your arm and hand. When you have regained function and sensation you may then remove the sling. Do not use your operative hand for any lifting, pushing or pulling. You may move your elbow and shoulder as tolerated. Gentle exercises with any exposed fingers are encouraged and gently opening and closing the digits will keep the joints flexible. Specific activities and exercises will be discussed at your first postoperative visit. Ice and elevation Some swelling is expected after surgery. Ice and elevation are the best remedies to reduce swelling and pain. Keep your hand properly elevated above the level of the heart i.e., fingers above palm, palm above the wrist, wrist above the elbow. Use pillows to increase elevation. Intermittently apply ice to the outside of the dressing for 20 minutes 6-8 times a day. You will want to ice and elevate for 5-7 days after surgery or as long as it hurts. Do not rely on a sling as it does not sufficiently elevate your hand. For proper elevation while walking around place your surgical hand on your opposite shoulder. Dressing/ Wound: The post-op dressing, splint or cast is a very important part of your treatment. If you have any questions please call us for clarification. If your dressing becomes wet or damaged please call the office. No creams, lotions or ointments on your incision. Keep steri-strips in place. They will fall off ontheir own Keep your dressing on and dry for 48 hours then you may remove. Cover your suture/incision with a Band-Aid and change as needed. Keep your incision clean and dry until follow-up appointment. Pain Management Most patients only require narcotics for a short period of time. Ice and elevation is an effective and important modality to use in conjunction with your oral pain medication. In a day or two you may be ready to start decreasing the amount of pain medication your taking. Pain medication is to be taken on an ???as needed?if needed?? basis. Remember to start with the least amount and evaluate its effectiveness. You should not drink alcoholic beverages while on pain medication. If tolerated, please take Tylenol three times a day in conjunction with the narcotic as they complement each other. Once pain is better controlled, you may simply take extra strength Tylenol, one to two tablets every six hours as needed. Do not exceed 3,000 mg in 24 hours. The most common side effects of narcotic pain medications are nausea and constipation. To decrease nausea always take pain medication with food. If you are experiencing vomiting, please call us right away. To minimize constipation, drink plenty of fluids, eat a high fiber diet with plenty of fruits and vegetables, and take a stool softener or laxative as needed. You may take an anti-inflammatory medication such as Ibuprofen/Advil/Motrin or Naproxen/Aleve. Referto the medication bottles for daily allowance and dosing. Discontinue if it causes stomach upset. Contact Information: During clinic hours M-F 8-4:30 please call [phone] If it is after 5:00PM on a weekday or a weekend and it is of an urgent nature please call [phone] and ask for the on-call orthopaedic resident. Call if: You have a fever greater than 101 F or experience chills Increased drainage from incision Redness or extreme swelling around incision Increased pain or change in pain that is not controlled with elevation, ice and your pain medication. Any questions concerns related to surgery documented in this encounter Medications at Time of Discharge Medication Sig Dispensed Refills Start Date End Date betamethasone valerate Apply topically. 0 021 (VALISONE) 0.1 % Cream calcium-vitamin D3 600 mg Take by mouth. 0 2020 calcium- 200 unit Capsule polycarbophil (FiberCon) 625 Take by mouth. 0 09/2021 mg Tablet famotidine (Pepcid) 40 mg Take 40 mg [...] a week. CIS Free Text Med - russian 0 05/18/20 10 tincture CIS Free Text Med - Fish 0 05/18/2010 [id number]-Geb E-Flax Oil PARoxetine (PAXIL) 10 mg 20 MG = 2 0 05/18/2010 tablet Tablet(s), PO, q HS amoxicillin (Amoxil) 250 mg Take 200 mg by 0 Capsule mouth every hour as needed. 1 hour prior to dental work documented as of this encounter Progress Notes Sandrita Doshi RN - 09/07/2022 8:16 AM EDT Discharge instructions and medications reviewed with patient and escortAlexandria. They verbalized understanding. All questions answered and written copy sent home with patient. Patient/escort encouraged to call with questions or concerns. Patient ambulated to car for discharge accompanied by [facility] staff member. documented in this encounter H&P Notes Chantale Fernandez MD - 09/07/2022 7:22 AM EDT Patient Name: Dania Adams Patient Age: 66 y.o. Birthdate: 1955 Admit date: 09/07/2022 Attending Physician: Chantale Fernandez MD Hand Surgery Preoperative H&P: Patient Name: Dania Adams Patient : 1955 Today's Date: 09/07/2022 Dania Adams is a 66 y.o. female with left carpal tunnel syndrome who presents today for left carpal tunnel release. No changes since last seen. Past Medical History: Diagnosis Date ??? Breast cancer 1996 RT breast CA Past Surgical History: Procedure Laterality Date ??? BREAST BIOPSY Right 1996 malignant needle bx ??? BREAST REDUCTION SURGERY Left 1996 at time of right mastectomy ??? MASTECTOMY Right 1996 with reconstruction ??? PRO UPPER GI ENDOSCOPY, BIOPSY 06/16/2011 UPPER GASTROINTESTINAL ENDOSCOPY,WITH BIOPSY SINGLE OR MULTIPLE performed by DOUGLAS COVINGTON I at [facility] ENDOSCOPY Family History Problem Relation Age of Onset ??? Breast Cancer Maternal Grandmother ??? Breast Cancer Cousin Social History Socioeconomic History ??? Marital status: Spouse name: Not on file ??? Number of children: Not on file ??? Years of education: Not on file ??? Highest education level: Not on file Occupational History ??? Not on file Tobacco Use ??? Smoking status: Never Smoker ??? Smokeless tobacco: Never Used Vaping Use ??? Vaping Use: Never used Substance and Sexual Activity ??? Alcohol use: Yes Alcohol/week: 0.8 standard drinks Types: 1 Standard drinks or equivalent per week Comment: very little ??? Drug use: No ??? Sexual activity: Yes Other Topics Concern ??? Not on file Social History Narrative ??? Not on file Social Determinants of Health Financial Resource Strain: Not on file Food Insecurity: Not on file Transportation Needs: Not on file Physical Activity: Not on file Housing Stability: Not on file Allergies Allergen Reactions ??? Adhesive Tape skin blisters ??? Other [Unclassified Drug] Some types of sutures Review of systems: As per HPI, otherwise non-contributory. Exam: General: NAD Resp: CTAB CV: normal rate, regular rhythm A/P: Dania Adams is a 66 y.o. female with carpal tunnel syndrome who presents for left carpal tunnel release. - Proceed to OR. The risks, benefits and indications were reviewed with the patient and there remains an indication for surgery. Consent signed. - Preoperative abx ordered Priti Alvarado MD Pager# [phone] I examined Dania Adams and I agree with Dr. Alvarado's note. CHANTALE FERNANDEZ MD documented in this encounter Miscellaneous Notes Op Note - Chantale Fernandez MD - 09/07/2022 7:47 AM EDT [facility] [place] Patient Name: Dania Adams : [id number] MR#: [id number] Case Date: 09/07/2022 Surgeon: Surgeon(s) and Role: * Chantale Fernandez MD - Primary PREOPERATIVE DIAGNOSIS: Left carpal tunnel syndrome. POSTOPERATIVE DIAGNOSIS: Left carpal tunnel syndrome. PROCEDURE PERFORMED: Endoscopic left carpal tunnel decompression. ANESTHESIA: Local with sedation. OPERATIVE INDICATION: The patient is a 66 y.o.-year-old Female with EMG proven left carpal syndrome.It was refractory to conservative treatment. She was brought to the operating room for endoscopic left carpal tunnel decompression. SUMMARY OF PROCEDURE: After 2 gm of intravenous cefazolin was administered, the patient's left upperextremity was prepped with Hibiclens scrub and ChloraPrep. Her left arm was draped in a sterile fashion. A preoperative time-out was performed as per [facility] protocol. 8mL of 2% lidocaine with epinephrinebuffered with sodium bicarbonate was injected over the median nerve at the level of the wrist as well as over the palmar side of the patient's left hand. Her left arm was then exsanguinated with an Esmarch bandage. A brachial tourniquet was inflated to 220 mmHg. A transverse incision was made at the palmar wrist crease in line with the ring finger ray. Subcutaneous spreading was performed in a blunt fashion down to the level of the investing fascia of the palmar surface of the forearm. Throughout this dissection, care was taken to avoid injury to subcutaneousneurovascular structures. The investing fascia was incised. It was elevated as a distally based flapwhich allowed for entry into the carpal tunnel. A synovial elevator was then used to dissect synovium from the undersurface of the transverse carpalligament. Small and large hamate finders were inserted into the carpal tunnel to confirm the proper level of entry. The Microaire endoscopic carpal tunnel release device was inserted into the carpal tunnel. It was passed distally until the distal edge of the transverse carpal ligament was well visualized. The blade was elevated. The device was withdrawn, transecting the transverse carpal ligament. The device was reinserted and complete release of the transverse carpal ligament was confirmed. Under direct vision, the investing fascia at of the palmar surface of forearm was released well proximal to the wrist incision site using tenotomy scissors. The incision was irrigated and was closed with 4-0 nylon suture. A sterile soft dressing was applied. The tourniquet was released with a total tourniquet time of 4 minutes. All digits rapidly became pink and warm with brisk capillary refill. She was then transferred to the recovery room in stable condition. Estimated blood loss was minimal. IV fluid replacement was 300 mL of crystalloid. She tolerated the procedure well without apparent complications. Attestation: Case Date: 09/07/2022 I performed this procedure without the involvement of a resident. CHANTALE FERNANDEZ MD 09/07/2022 Brief Op Note - Chantale Fernandez MD - 09/07/2022 7:34 AM EDT Brief Operative Note Patient Name: Dania Adams : [id number] MR#: [id number] Case Date: 09/07/2022 Surgeon: Surgeon(s) and Role: * Chantale Fernandez MD - Primary Preoperative diagnosis: Left carpal tunnel syndrome Postoperative diagnosis: Left carpal tunnel syndrome Procedure(s) (LRB): ENDOSCOPY WRIST W/ RELEASE TRANSVERSE CARPAL LIGAMENT (WRVU 6.39) (Left) Anesthesia: MAC Complications: None Intake: 300cc crystalloid Intraprocedure Crystalloid Total None Transfusion No data found in the last 1 encounters. Output: Estimated Blood Loss: None Urine Output:: (no urine output recorded) Other Output: (no other output recorded) Drains: None Specimens removed during surgery: None Disposition: aroused from sedation, and taken to the recovery room in a stable condition Condition: doing well without problems Attestation: Case Date: 09/07/2022 I performed this procedure without the involvement of a resident. documented in this encounter Plan of Treatment Upcoming Encounters Date Type Specialty Care Team Description 10/27/2022 Appointment Radiology Carie Sands APRN [address] [place], [place] [address] (Wo rk) 10/27/2022 Appointment Radiology Carie Sands APRN [address] [place], [place] [address] (Wo rk) documented as of this encounter Procedures Procedure Name Priority Date/Time Associated Diagnosis Comme nts ENDOSCOPY WRIST W/ 09/07/2022 7:36 AM EDT Carpal tunne l syndrome RELEASE TRANSVERSE on left CARPAL LIGAMENT (WRVU 6.39) documented in this encounter Visit Diagnoses Not on filedocumented in this encounter Active and Recently Administered Medications Times are shown in EDT. Scheduled Medication Order 09/05/2022 09/06/2022 09/07/2022 ceFAZolin (Ancef) 2 g vial attach to sod ium chloride 0.9% 100 mL Mini-Bag Plus (COMPLETED) 0740 (New Bag - Prov ider: Je Tobias CRNA) 2 g, Intravenous, ONCE, 1 dose, On Tue at 0745, Administer over 30 Minutes, Indication for (Active or Suspected): Prophylaxis Continuous Medication Order 09/05/2022 09/06/2022 09/07/2022 lactated ringers infusion (CANCELED) 0735 (New Bag - Provider: Je Tobias CRNA)0753 (Anesthesia Volume Adjustment - Provider: Je Tobias CRNA) 1,000 mL, at 100 mL/hr, Intravenous, CON TINUOUS, Starting on Tue09/07/22 at 0800, Until Tue09/07/22 at 0818, Day of Surgery (Day of Procedure) PRN Medication Order 09/05/2022 09/06/2022 09/07/2022 lidocaine-EPINEPHrine (pf) (2% - 1:200,000) injection (CANCELED) 0748 (Given - Provider: Chantale Fernandez MD - Comment: mixed with sodium bicarb 10:1. Total of 8ML given) ONCE PRN, Starting on Tue09/07/22 at 07 48, Until Tue09/07/22 at 1019, Intra- Operative (Intra-Procedure), Routine sodium chloride 0.9 % (flush) (BD PosiFl us Normal Saline 0.9) flush 5-20 mL (CANCELED) 0749 (Given - Provid er: Chantale Fernandez MD - Comment: mixed with 2% Lidocaine with epinephrine. Total of 8ml given) 5-20 mL, Intravenous, EVERY 1 MIN PRN, S tarting on Tue09/07/22 at 0732, Until Tue09/07/22 at 0818, flush, Flush pertains to all indwelling lines. Flush per protocol found in the job aid using the link provided on this medication record., Da y of Surgery (Day of Procedure), Routine No Frequency Medication Order 09/05/2022 09/06/2022 09/07/2022 sodium bicarbonate 8.4 % (1 meq/ml) IV solution 0715 (Due) 1 dose, Starting on Tue09/07/22 at 0701 , Until Tue09/07/22 at 1914, Nury Best.: cabinet override documented in this encounter Care Teams Restaurant Area Manager Relationship Specialty Start Date End Date Carie Sands APRN PCP - General Family Medicine 09/01/22 [address] [place] [address] documented as of this encounter
--- OUTSIDE RECORDS SUMMARY | 2022-10-08 00:47 | XMS_ITS | Encounter Summary ---
:1955 Author Organization [facility] [address] Care Team Providers Name Role Phone WichoCarie lowe ANGIE Primary Care Provider Encounter Details Date Type Department Care Team Description 09/07/2022 Surgery Outpatient Surgery Mark Fernandez MD ENDOSCOPY WRIST W/ Center [facility] RELEASE [facility] CARPAL LIGAMENT ([facility] ORTHOPAEDIC S URGERY 6.39) [place] [address] [place] [address] [phone] Social History Tobacco Use Types Packs/Day Years [...] documented in this encounter Discharge Instructions Discharge InstructionsSandrita Doshi RN - 09/07/2022 8:04 AM EDT Moderate [...] 5pm or on a weekend: Call the [facility] forwarder operator and ask for the physician on callcovering for your doctor. Patient InstructionsPriti Alvarado MD - 09/07/2022 7:26 AM EDT Orthopaedic [...] During clinic hours M-F 8-4:30 please call [phone] If it is after 5:00PM on a weekday or a weekend and it is of an urgent nature please call [phone] and ask for the on-call orthopaedic resident. [...] a week. CIS Free Text Med - chadian 0 05/18/20 10 tincture CIS Free Text Med - Fish 0 05/18/2010 Xtq-[id number]-Ooz E-Flax Oil PARoxetine (PAXIL) 10 mg 20 [...] time of right mastectomy ??? MASTECTOMY Right 1997 with reconstruction ??? PRO UPPER GI ENDOSCOPY, BIOPSY 06/16/2011 UPPER GASTROINTESTINAL ENDOSCOPY,WITH BIOPSY SINGLE OR MULTIPLE performed by DOUGLAS COVINGTON I at [facility] ENDOSCOPY Family History Problem Relation Age of [...] Preoperative abx ordered Priti Alvarado MD Pager# [phone] I examined Dania Adams and I agree with Dr. Alvarado's note. CHANTALE FERNANDEZ MD documented in this encounter Miscellaneous Notes Op Note - Chantale Fernandez MD - 09/07/2022 7:47 AM EDT [facility] [place] Patient Name: Dania Adams : [id number] MR#: [id number] Case Date: 09/07/2022 Surgeon: Surgeon(s) and Role: [...] A preoperative time-out was performed as per [facility] protocol. 8mL of 2% lidocaine with epinephrinebuffered [...] Operative Note Patient Name: Dania Adams : [id number] MR#: [id number] Case Date: 09/07/2022 Surgeon: Surgeon(s) and Role: [...] 10/27/2022 Appointment Radiology Carie Sands APRN [address] [place], [place] [address] (Wo rk) 10/27/2022 Appointment Radiology Carie Sands APRN [address] [place], [place] [address] (Wo rk) documented as of this encounter Procedures Procedure Name Priority Date/Time Associated Diagnosis Comme nts ENDOSCOPY WRIST W/ 09/07/2022 7:36 AM EDT Carpal tunne l syndrome RELEASE TRANSVERSE on left CARPAL LIGAMENT (WRVU 6.39) documented in this encounter Visit Diagnoses Diagnosis Carpal tunnel syndrome on left Carpal tunnel syndrome documented in this encounter Administered Medications Inactive Administered Medications - up to 3 most recent administrations Medication Order MAR Action Action Date Dose Rate Site lidocaine-EPINEPHrine (pf) (2% - Given 09/07/2022 7:48 AM EDT 7 mLs 1:200,000) injection ONCE PRN, Starting on Tue09/07/22 at 0748, Until Tue09/07/22 at 1019, Intra-Operative (Intra-Procedure), Routine sodium chloride 0.9 % (flush) Given 09/07/2022 7:49 AM EDT 1 mL 19- Surgical Site (BD PosiFlush Normal Saline 0.9) flush 5-20 mL 5-20 mL, Intravenous, EVERY 1 MIN PRN, Starting on Tue09/07/22 at 0732, Until Tue09/07/22 at 0818, flush, Flush pertains to all indwelling lines. Flush per protocol found in the job aid using the link provided on this medication record., Day of Surgery (Day of Procedure), Routine documented in this encounter Active and Recently Administered [...] sodium chloride 0.9 % (flush) (BD PosiFl ush Normal Saline 0.9) flush 5-20 mL (CANCELED) [...] 0701 , Until Tue09/07/22 at 1914, Nury Best: cabinet override documented in this encounter Care Teams Sander And Buffer Relationship Specialty Start Date End Date Carie Sands APRN PCP - General Family Medicine 09/01/22 [address] [place] [address] documented as of this encounter
--- OUTSIDE RECORDS SUMMARY | 2022-10-08 00:47 | XMS_ITS | Encounter Summary ---
:1955 Author Organization [facility] [place] [address] Care Team Providers Name Role Phone Carie Sands APRN Primary Care Provider Encounter Details Date Type Department Care Team Description 09/21/2022 Travel Social History Tobacco Use Types Packs/Day [...] 10/27/2022 Appointment Radiology Carie Sands APRN [address] [place], [place] [address] (Wo rk) 10/27/2022 Appointment Radiology Carie Sands APRN [address] [place], [place] [address] (Wo rk) documented as of this encounter Visit Diagnoses Not on filedocumented in this encounter Care Teams Charge Auditor Relationship Specialty Start Date End Date Carie Sands APRN PCP - General Family Medicine 09/01/22 [address] [place] [address] documented as of this encounter
--- OUTSIDE RECORDS SUMMARY | 2022-10-08 00:47 | XMS_ITS | Encounter Summary ---
:1955 Author Organization [facility] [place] [address] Care Team Providers Name Role Phone Ernie Morales MD Primary Care Provider Encounter Details Date Type Department Care Team Description 01/31/2020 Telephone Hematology and Oncol og[facility]ve at [facility] Lisa [place]audio, [place] [address] Social History Tobacco Use Types Packs/Day Years Used Date Smoking Tobacco: Never Smokeless Tobacco: Never Alcohol Use Standard Drinks/Week Comments Not Asked 0.8 (1 standard drink = 0.6 oz pure alco hol) Sex Assigned at Date Recorded Female 07/09/2021 3:12 PM EDT documented as of this encounter Miscellaneous Notes Telephone Encounter - Lisa Claudio RN - 01/31/2020 12:48 PM EDT Message received: Call back [phone] Dania would like to get a CBC w/ diff at [email or web address] in [place], [place]. Could an order be placed so I can send it over? Per MD: NO CBC, last was normal Plan: Asked loan secretary to notify patient of the above per MD documented in this encounter Plan of Treatment Upcoming Encounters Date Type Specialty Care Team Description 10/27/2022 Appointment Radiology WichoCindy lowekevin Parker , MANAGER DISASTER RECOVERY [address] [place], [place] [address] (Wo rk) 10/27/2022 Appointment Radiology WichoRadha lowemarisel Parker , MANAGER DISASTER RECOVERY [address] [place], [place] [address] (Wo rk) documented as of this encounter Visit Diagnoses Not on filedocumented in this encounter Care Teams Event Operations Manager Relationship Specialty Start Date End Date Ernie Morales MD PCP - General 10/13/10 08/02/21 documented as of this encounter
--- OUTSIDE RECORDS SUMMARY | 2022-10-08 00:47 | XMS_ITS | Encounter Summary ---
:1955 Author Organization [facility] [place] [address] Care Team Providers Name Role Phone Unknown Primary Care Provider Unavailable Reason for Visit Reason Comments Follow-up L EMG 07/10/21 Encounter Details Date Type Department Care Team Description 08/03/2021 Office Visit Orthopaedics at [facility] Devin Fernandez G, Trigger finger, right ring f noah; [facility] Carpal [place] [address] [facility] [phone] ORTHOPAEDIC SURGERY [place], [place] [address] Social History Tobacco Use Types Packs/Day Years Used Date Smoking Tobacco: Never Smokeless Tobacco: Never Alcohol Use Standard Drinks/Week Comments Yes 0.8 (1 standard drink = 0.6 oz pure alco hol) very little Sex Assigned at Date Recorded Female 07/09/2021 3:12 PM EDT documented as of this encounter Last Filed Vital Signs Vital Sign Reading Time Taken Comments Blood Pressure 134/67 08/03/2021 8:18 AM EDT Pulse 47 08/03/2021 8:18 AM EDT Temperature - - Respiratory Rate - - Oxygen Saturation - - Inhaled Oxygen Concentration - - Weight 83.9 kg (185 lb) 08/03/2021 8:18 AM EDT reported Height 158.8 cm (5' 2.5) 08/03/2021 8:18 AM EDT report ed Body Mass Index 33.3 08/03/2021 8:18 AM EDT documented in this encounter Progress Notes Chayo Vega PA - 08/03/2021 8:10 AM EDT PATIENT NAME: Dania Adams AGE: 65 y.o. MR#: [id number] DATE OF VISIT: 08/03/2021 STAFF: Dr. Fernandez The patient's is present for today's visit. CHIEF COMPLAINT: #1- Left long finger and thumb numbness x2 years #2- Right ring trigger finger x4 years HISTORY OF PRESENT ILLNESS: Ms. Adams is a right hand dominant 65 y.o. female who comes into clinic today for evaluation of bilateral hands. The patient has a history of SVT and inflammatory arthritis. The patient reports approximately 4 years of right ring finger triggering that was treated with one steroid injection in 2018 at the [facility] with full resolution with 1 year of relief. The triggering is worse with gripping and it does lock requiring manual release. She reports approximately 2 years of left long and thumb numbness with occasional inclusion of the index finger. She reports associated electric shocks in the wrist distally. She reports that the numbness in the long finger and дмитрий mb is now constant. She reports that she drops things. She does reports that her right hand is numb in the morning as well. She wears nocturnal splints with intermittent relief. Interval HPI: She reports worsening of her left thumb and middle finger with transient tingling of the index finger. She reports that her right ring trigger finger did not change after the steroid injection at her last visit on 03/18/21. She presents today for EMG/NSC result review. Medications and Allergies were reviewed in eD-H PAST MEDICAL HX: Past Medical History: Diagnosis Date ??? Breast cancer 1996 RT breast CA PAST SURGICAL HX: Past Surgical History: Procedure Laterality Date ??? BREAST BIOPSY Right 1997 malignant needle bx ??? BREAST REDUCTION SURGERY Left 1996 at time of right mastectomy ??? MASTECTOMY Right 1997 with reconstruction ??? PRO UPPER GI ENDOSCOPY, BIOPSY 06/16/2011 UPPER GASTROINTESTINAL ENDOSCOPY,WITH BIOPSY SINGLE OR MULTIPLE performed by DOUGLAS COVINGTON I at [facility] ENDOSCOPY FAMILY HX: Family History Problem Relation Age of Onset ??? Breast Cancer Maternal Grandmother ??? Breast Cancer Cousin SOCIAL HX: Social History Occupational History ??? Not on file Tobacco Use ??? Smoking status: Never Smoker ??? Smokeless tobacco: Never Used Vaping Use ??? Vaping Use: Never used Substance and Sexual Activity ??? Alcohol use: Yes Alcohol/week: 0.8 standard drinks Types: 1 Standard drinks or equivalent per week Comment: very little ??? Drug use: No ??? Sexual activity: Yes ROS: Constitutional: Denies fevers, chills Respiratory: Denies shortness of breath, cough Cardiac: Denies chest pain, palpitations GI: denies abdominal pain, nausea, vomiting Skin: Denies new rashes or lesions Neuro: Positive for numbness, tingling, and weakness Musculoskeletal: as above in HPI PHYSICAL EXAM: Ms. Adams is a 65 y.o. female General appearance: in no acute distress, alert, cooperative Psych: cooperative with exam, appropriate Head: normocephalic, atraumatic EENT: EOMI grossly intact Neck: supple, trachea midline Cardiac: regular rate and rhythm by peripheral pulse Lungs: non-labored respirations Musculoskeletal: ??? Inspection: No erythema, edema, ecchymosis, abrasions. ??? Palpation: TTP over right ring finger A1 lavell with palpable triggering. ??? ROM: Full ROM bilateral forearms, wrists, digits. ??? Orthopedic testing: Positive Tinel's on the left and negative on the right. Negative Stanley's bilaterally. Negative Phalen's on the right and positive on the left. ??? Neurovascular: SGILT R/M/U/Ax nerve distributions; AIN/PIN/U nerves fire; 2+ radial pulse DIAGNOSTIC STUDIES: EMGs/NCS from 07/10/21 were personally reviewed and demonstrate moderate left median neuropathy. ASSESSMENT: #1- Left long finger and thumb numbness, likely carpal tunnel syndrome #2- Right ring trigger finger PLAN: - The patient was advised that they have left carpal tunnel syndrome. They was given treatment options including nocturnal wrist splinting, corticosteroid injection although this will likely only provided transient relief, versus surgical carpal tunnel release. After extensive discussion of the benefits and risks of each option and answering all of the patient's questions, they would like to proceed with surgical decompression. Surgical consent for left carpal tunnel release was signed in the officetoday. - The patient was counseled on management options for their trigger finger including PIP joint nocturnal splinting versus additional A1 lavell steroid injection versus surgical A1 lavell release. Afterextensive discussion of the benefits and risks of each option and answering all of their questions, the patient would like to proceed with surgical release at a future date. Surgical consent for right ring finger trigger release in the office today. She will call when she would like to proceed with this. - The patient will obtain pre-op clearance from her baker chef. - She will return for follow up for left carpal tunnel release with Dr. Fernandez. - The patient understands to contact us if they have any other questions or concerns. Dr. Fernandez also evaluated and spoke with the patient at today's visit. Chayo Vega PA-C Department of Orthopaedics [facility] Pager: [phone] Gabrielle Talbot RN - 08/03/2021 8:10 AM EDT Pre op teaching done for endoscopic carpal tunnel release. Emphasis placed on post op hand elevationwith hand above heart,fingers above palm,palm above wrist and wrist above elbow. Discussed importance of flexing fingers against original dressing.Take dressing off on day 3 and fully flex and extend fingers.Place Band-Aid over suture,no ointments. Reviewed suggestions for taking post op pain medication. Questions solicited and answered to patient satisfaction. Written material provided. Patient knows to call with any additional questions or concerns. Devin Fernandez MD - 08/03/2021 8:10 AM EDT Dania Adams was seen in conjunction with Chayo TUCKER. She has EMG proven left carpal tunnel syndrome and describes more than 4 years of symptoms. We talked about the options of corticosteroid injection versus carpal tunnel decompression. She would like to proceed with carpal tunnel decompression. She is aware this likely will be done endoscopically although an open procedure may be needed. Sheis aware that with such surgery there are potential risks which include but are not limited to infection, neurovascular injury, incomplete or no relief of neurogenic symptoms, pillar pain, medication manager weakness, and recurrence of carpal tunnel syndrome. Her questions were solicited and answered and we will schedule this to be done. She will try to get an appointment with her baker chef prior to surgery. She also has a right ring trigger finger which did not respond to corticosteroid injection. She may wish to have this released at some point after her carpal tunnel release. documented in this encounter Plan of Treatment Upcoming Encounters Date Type Specialty Care Team Description 10/27/2022 Appointment Radiology Carie Sands APRN [address] [place], [place] [address] (Wo rk) 10/27/2022 Appointment Radiology Carie Sands APRN [address] [place], [place] [address] (Wo rk) documented as of this encounter Visit Diagnoses Diagnosis Trigger finger, right ring finger Carpal tunnel syndrome on left Carpal tunnel syndrome documented in this encounter Care Teams Film Processing Utility Worker Relationship Specialty Start Date End Date Unknown PCP - General 08/03/21 08/31/22 None documented as of this encounter
--- OUTSIDE RECORDS SUMMARY | 2022-10-08 00:47 | XMS_ITS | Encounter Summary ---
:1955 Author Organization [facility] [place] [address] Care Team Providers Name Role Phone Ernie Morales MD Primary Care Provider Encounter Details Date Type Department Care Team Description 11/26/2020 Ancillary Mammography at [place] ductal carcinoma of right breast; Procedure Chandrakant Gonzalez MD Breast pain, left [address] [place], [place] C[place] [address] HEMATOLOGY/ONCOL [phone] [place] [address] Social History Tobacco Use Types [...] 10/27/2022 Appointment Radiology Carie Sands APRN [address] [place], [place] [address] (Wo rk) 10/27/2022 Appointment Radiology Carie Sands EXTRUSION LINE OPERATOR [address] [place], [place] [address] (Wo rk) documented as of this encounter Procedures Procedure Name Priority Date/Time Associated Diagnosis Comme nts MAMMO DIAGNOSTIC Routine 11/26/2020 1:39 PM Infiltrating ducta l Results for this CAD AND VINNY LEFT EST carcinoma of right proc edure are in breast the results Breast pain, left section. documented in this encounter Results US Breast Limited Left (11/26/2020 2:12 PM EST) Anatomical Region Laterality Modality Breast Left Ultrasound Specimen (Source) Anatomical Location Collection Method / Collectio n Time Received Time / Laterality Volume Impressions 11/26/2020 2:20 PM EST BIRADS 2: Benign Finding. No mammographic or sonographic evidence of malignancy. Symptoms of pain should be followed clinically Otherwise, continued routine annual scre ening mammography. Results and plan were discussed with the patient at time of study. A summary of these results will be sent to the patien t by mail Thank you for letting us participate in the care of this patient. For questions regarding this report, please contact e number below. ? Narrative 11/26/2020 2:20 PM EST EXAMINATION: US ??BREAST LIMITED LEFT, MAMMO DIAGNOSTIC CAD AND VINNY LEFT CLINICAL HISTORY: History of right breas t cancer with new left breast pain priors; TECHNIQUE: MLO, CC, and compression views of the le ft breast were acquired using digital mammographic technique and 3-D tomosynth esis. Study was interpreted with the aid of CAD. COMPARISON: Mammographic studies dating back to 2010 FINDINGS: There are post reduction mammoplasty josselyn nges. The left breast is composed of scattered fibroglandular tissue without dominant mass, areas of architectural distortion, or clusters of microcalcific ations or interval change suggest malignancy. Subsequent ultrasound evalua tion of the left breast from the 9 to 11:00 position, 6 cm from the nipple, at site of pain, demonstrates normal fibroglandular tissues and post reductio n mammoplasty changes. No sonographic evidence of mass, cyst, or suspicious sh adowing. [place] MD IMG MAMMO ORDERABLES Mammo Diagnostic Cad and Vinny Left (11/26/2020 1:39 PM EST) Anatomical Region Laterality Modality Breast Left Mammography Specimen (Source) Anatomical Location Collection Method / Collectio n Time Received Time / Laterality Volume Impressions 11/26/2020 2:20 PM EST BIRADS 2: Benign Finding. No mammographic or sonographic evidence of malignancy. Symptoms of pain should be followed clinically Otherwise, continued routine annual scre ening mammography. Results and plan were discussed with the patient at time of study. A summary of these results will be sent to the patien t by mail Thank you for letting us participate in the care of this patient. For questions regarding this report, please contact e number below. ? Narrative 11/26/2020 2:20 PM EST EXAMINATION: US ??BREAST LIMITED LEFT, MAMMO DIAGNOSTIC CAD AND VINNY LEFT CLINICAL HISTORY: History of right breas t cancer with new left breast pain priors; TECHNIQUE: MLO, CC, and compression views of the le ft breast were acquired using digital mammographic technique and 3-D tomosynth esis. Study was interpreted with the aid of CAD. COMPARISON: Mammographic studies dating back to 2010 FINDINGS: There are post reduction mammoplasty josselyn nges. The left breast is composed of scattered fibroglandular tissue without dominant mass, areas of architectural distortion, or clusters of microcalcific ations or interval change suggest malignancy. Subsequent ultrasound evalua tion of the left breast from the 9 to 11:00 position, 6 cm from the nipple, at site of pain, demonstrates normal fibroglandular tissues and post reductio n mammoplasty changes. No sonographic evidence of mass, cyst, or suspicious sh adowing. [place] MD IMG MAMMO ORDERABLES documented in this encounter Visit Diagnoses Diagnosis 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 Breast pain, left Mastodynia 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 Breast pain, left Mastodynia documented in this encounter Care Teams Stack Matcher Relationship Specialty Start Date End Date Ernie Morales MD PCP - General 10/13/10 08/02/21 documented as of this encounter
--- OUTSIDE RECORDS SUMMARY | 2022-10-08 00:47 | XMS_ITS | Encounter Summary ---
:1955 Author Organization [facility] Address [facility] [place] [address] Care Team Providers Name Role Phone Ernie Morales MD Primary Care Provider Reason for Visit Reason Comments Follow-up Encounter Details Date Type Department Care Team Description 10/09/2020 Office Visit Hematology and Marcia Ruelas PA 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; Oncology at [facility] Breast pain, left [facility] [address] HEMATOLOGY/[place] [address] [place] [address] [phone] Social History Tobacco Use Types Packs/Day Years Used Date Smoking Tobacco: Never Smokeless Tobacco: Never Alcohol Use Standard Drinks/Week Comments Not Asked 0.8 (1 standard drink = 0.6 oz pure alco hol) Sex Assigned at Date Recorded Female 07/09/2021 3:12 PM EDT documented as of this encounter Last Filed Vital Signs Vital Sign Reading Time Taken Comments Blood Pressure 127/77 10/09/2020 1:57 PM EST Pulse 49 10/09/2020 1:57 PM EST Temperature 36.4 ??C (97.5 ??F) 10/09/2020 1:57 PM EST Respiratory Rate 17 10/09/2020 1:57 PM EST Oxygen Saturation 99% 10/09/2020 1:57 PM EST Inhaled Oxygen Concentration - - Weight 88.3 kg (194 lb 9.6 oz) 10/09/2020 1:57 PM EST Height 159 cm (5' 2.6) 10/09/2020 1:57 PM EST Body Mass Index 34.92 10/09/2020 1:57 PM EST documented in this encounter Progress Notes Marcia Ruelas PA - 10/09/2020 2:00 PM EST [facility] Interim Visit CC: breast cancer Identification: 65 y.o. female with history of right breast cancer dx 1996 Medical Oncologist: Dania Hillman (previously Curtis Hung) Interim History: Dania presents today for evaluation of left breast pain. She was last seen by Dr. Hillman in June 2020 for annual f/u. Annual screening mammo (left) was last done on 06/13/20 in [place] with findings of benign- appearing calcifications. Over the 5 weeks, Dania has been having focal left breast pain under the nipple and slightly superior and medial to the nipple. It has been constant- It's always there, but sometimes I'm more aware of it. It feels uncomfortable and is worsened by things brushing or pushing against it like bedding, clothes, and her lymphedema garment. She is not sure if she sees any swelling on the left breast because she has gained weight. She does report swelling of her right breast and arm up to her neck and down to hip since her surgery. She does self massage but no longer sees PT. She denies any lumps, bumps, axillary changes, nipple discharge, nipple changes, or skin changes. Dania says that her first breast cancer presented only with breast pain and fatigue, both of which she is having now. Review of Systems: General: Denies fevers, chills. Reports weight gain and fatigue. Skin: Denies rashes, new skin lesions. HEENT: Denies headaches, double or blurry vision Pulm: Denies cough, dyspnea. CV: Denies chest pain, palpitations. Extremities: Denies peripheral edema, leg swelling/pain/redness. Breast: See HPI Lymph: See HPI GI: Denies N/V/D/C, abdominal pain, melena, hematochezia. : Denies dysuria, hematuria. Endo: Reports hair is flatter - thinning MSK: Denies new or worsening skeletal pain. Reports chronic arthritis in hands as well as trigger finger. Neuro: Denies dizziness, lightheadedness, balance problems. Reports numbness and tingling in her left hand, digits 1-4. Breast Cancer History: Right breast, August 1997. a. 5-mm cancer, 0/9 lymph nodes involved with tumor. c. s/p right modified radical mastectomy. 1. s/p tram reconstruction. 2. s/p left reduction mammoplasty. d. Immunohistochemistries weakly positive MN, negative ER. PMH: Patient Active Problem List Diagnosis Code ??? Infiltrating ductal carcinoma of breast C50.919 ??? GERD (gastroesophageal reflux disease) K21.9 ??? Hot flashes R23.2 ??? Vertigo R42 ??? 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 Trigger finger M65.30 ??? Hypercalcemia E83.52 ??? Inflammatory arthritis M19.90 ??? Presence of left artificial knee joint Z96.652 ??? Carpal tunnel syndrome, bilateral G56.03 Meds: CIS FREE TEXT MED, Coenzyme Q10, Cyanocobalamin, PARoxetine, Potassium, aspirin EC, atenoloL, cholecalciferol (vitamin D3), famotidine, loratadine, multivitamin, and simvastatin Allergies: Allergies Allergen Reactions ??? Adhesive Tape skin blisters ??? Other [Unclassified Drug] Some types of sutures FH: family history includes Breast Cancer in her cousin and maternal grandmother. SH: Social History Tobacco Use ??? Smoking status: Never Smoker ??? Smokeless tobacco: Never Used Substance Use Topics ??? Alcohol use: Not on file ??? Drug use: No Social History Social History Narrative ??? Not on file Vitals: Patient Vitals for the past 24 hrs: Temp Pulse Resp BP SpO2 10/09/20 1357 36.4 ??C (97.5 ??F) (!) 49 17 127/77 99 % Wt Readings from Last 3 Encounters: 10/09/20 88.3 kg (194 lb 9.6 oz) 07/01/20 89.4 kg (197 lb) 05/25/18 79.2 kg (174 lb 9.6 oz) Physical Exam: Vitals reviewed and remarkable for: HR 49 General: A&Ox3. Well-developed and well-nourished. No acute distress. Head: Normocephalic, atraumatic. Eyes: EOMs intact. Conjunctiva pink. No scleral icterus. Neck: Supple, nontender. No cervical or supraclavicular lymphadenopathy. No thyromegaly. Breasts: ??? Right: S/P mastectomy with TRAM recon. There is induration at the medial breast - patient reports this is unchanged. There are no suspicious masses, skin changes, nipple changes, or palpable axillary nodes. ??? Left: Lollipop reduction scars with scar tissue along the scar lines. There is a small, mobile mass ~1cm at 9:30, 3cm from the NAC. Patient reports this is tender to palpation but deeper. There is skin mottling at the LOQ. There are no nipple changes or palpable axillary nodes. Skin and NAC are not tender to light palpation. Neurological: Gait normal. No focal deficits noted. Skin: Warm and dry. No rashes noted. Psychiatric: Friendly and conversive. Mood is euthymic. Affect is mood- congruent. Insight is good. Thought-content is normal, future-oriented. Results: none Assessment & Plan: Dania is a 65 y.o. woman with remote history of right breast cancer s/p MRM, now with 1 month of constant focal left breast pain with questionable associated mass on exam. There is a small palpable mass although it is fairly soft and mobile. Given her history and presentation at her first breast cancer, together with the fact that there is a mass and focal, non- cyclical breast pain, further w/u is warranted. I have ordered a left diagnostic mammogram and ultrasound. She thinks she can do this at the end of next week. I will call her with the results and next steps. Dania knows to contact us in the interim if she has any concerns. Future Appointments Date Time Provider Department Center 10/17/2020 9:30 AM [facility] ROOM 1 Mammo [facility] Rad 10/17/2020 10:00 AM [facility] RO[facility] 3 Mammo [facility] Rad Marcia Ruelas PA-C Medical Oncology - Breast & GI Cancers [facility] Pager - [phone] documented in this encounter Plan of Treatment Upcoming Encounters Date Type Specialty Care Team Description 10/27/2022 Appointment Radiology Carie Sands , [employer]OR[employer] DESPATCH [employer] [address], [place] [address] (Wo rk) 10/27/2022 Appointment Radiology Carie Sands , [employer] [address], [place] [address] (Wo rk) documented as of this encounter Results US Breast Limited Left [...] these results will be sent to the dwayne t by mail Thank you for letting [...] these results will be sent to the dwayne t by mail Thank you for letting [...] Mastodynia documented in this encounter Care Teams Doping Supervisor Relationship Specialty Start Date End Date Ernie Morales MD PCP - General 10/13/10 08/02/21 documented as of this encounter
--- OUTSIDE RECORDS SUMMARY | 2022-10-08 00:47 | XMS_ITS | Encounter Summary ---
:1955 Author Organization [facility] Address [place] [address] Care Team Providers Name Role Phone Ernie Morales MD Primary Care Provider Encounter Details Date Type Department Care Team Description 05/25/2018 [place] [facility] [place] Hung Infiltrating ductal carcinom a of breast, right; [facility]counter [facility] Carlos Hot flashes; [facility] Gastroesophageal reflux dise ase, esophagitis presence not specified [place], [place] [facility]ENTER [address] HEMATOLOGY/ONCO [phone] [facility] [place] [phone] Social History Tobacco Use Types Packs/Day Years [...] a week. CIS Free Text Med - samoan 0 05/18/20 10 tincture CIS Free Text Med - Fish 0 05/18/2010 [id number] E-Flax Oil PARoxetine (PAXIL) 10 mg 20 MG = 2 0 05/18/2010 tablet Tablet(s), PO, q HS documented as of this encounter Plan of Treatment Upcoming Encounters Date Type Specialty Care Team Description 10/27/2022 Appointment Radiology Carie Sands APRN [address] [place], [place] [address] (Wo rk) 10/27/2022 Appointment Radiology Carie Sands APRN [address] [place], [place] [address] (Wo rk) documented as of this encounter Procedures Procedure Name Priority Date/Time Associated Diagnosis Comme nts MAMMO SCREENING CAD Routine 05/25/2018 8:58 AM Infiltrating du ctal Results for this AND VINNY LEFT EDT carcinoma of breast, proced ure are in right the results Hot flashes section. Gastroesophageal reflux disease, esophagitis presence not specified documented in this encounter Results Mammo Screening Cad and Vinny Left (05/25/2018 8:58 AM EDT) Anatomical Region Laterality Modality Breast Left Mammography Specimen (Source) Anatomical Location Collection Method / Collectio n Time Received Time / Laterality Volume Narrative 05/25/2018 9:19 AM EDT LEFT MAMMOGRAPHY REASON FOR EXAM: 62-year-old female, his tory of right breast cancer, mastectomy and reconstruction, 1996. History of lef t breast reduction. TECHNIQUE: CC and MLO views were obtaine d of the left breast using standard 2-D mammography as well as 3-D tomosynthesis . Computer aided detection was used. Comparison: This is compared with prior images. FINDINGS: There are scattered areas of f ibroglandular density. There are no suspicious microcalcifications, masses, or areas of distortion. The pattern is stable. Stable left breast benign-appear ing focal asymmetries, commensurate with reduction. CONCLUSION: No mammographic evidence of malignancy. RECOMMENDATION: Routine screening. A result letter has been sent to this pa camilo by [facility]. BIRADS CATEGORY 2: Benign findings. * ??The [employer] an d The Society of Breast Imaging recommend annual screening beginning at age 40 for the general female population. * ??Screening should continue as long as a woman is in good health and is expected to live 10 more years or longer . * ??All women should be familiar with th e known benefits, limitations, and potential harms linked to breast cancer screening. They also should know how their breasts normally look and feel and report any breast changes to a health care provider right away. * ??Some women, because of their family history, a genetic tendency, or certain other factors, should be screened with M RIs along with mammograms. (The number of women who fall into this category is very small.) The patient and health care provider should discuss the patient hist ory and decide if earlier screening and breast MRI are appropriate. Curtis Hung MD IMG MAMMO ORDERABLES documented in this encounter Visit Diagnoses Diagnosis Infiltrating ductal carcinoma of breast, right Hot flashes Symptomatic menopausal or female climact iliana states Gastroesophageal reflux disease, esophag itis presence not specified documented in this encounter Care Teams Electrical Plumbing Supervisor Relationship Specialty Start Date End Date Ernie Morales MD PCP - General 10/13/10 08/02/21 documented as of this encounter
--- OUTSIDE RECORDS SUMMARY | 2022-10-08 00:47 | XMS_ITS | Encounter Summary ---
:1955 Author Organization [facility] [place] [address] Care Team Providers Name Role Phone Ernie Morales MD Primary Care Provider Encounter Details Date Type Department Care Team Description 01/30/2020 Orders Only Hematology and Dania Hillman ing duct[place] [facility] carcinoma of right [facility] [address] [place] H[place]ATOLOGY/ONCOLOG [phone] Y [phone] [place], [place] [address] Social History Tobacco Use Types [...] 10/27/2022 Appointment Radiology Carie Sands APRN [address] [place], [place] [address] (Wo rk) 10/27/2022 Appointment Radiology Carie Sands BINDER AND WRAPPER PACKER [address] [place], [place] [address] (Wo rk) documented as of this encounter Results Mammo Screening Cad and [...] 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 documented in this encounter Care Teams Category Specialist Relationship Specialty Start Date End Date Ernie Morales MD PCP - General 10/13/10 08/02/21 documented as of this encounter
--- OUTSIDE RECORDS SUMMARY | 2022-10-08 00:47 | XMS_ITS | Encounter Summary ---
:1955 Author Organization [facility] [address] Care Team Providers Name Role Phone WichoCarie lowe ANGIE Primary Care Provider Reason for Visit Reason Comments Post Op NXR DOS 09-07-22 Left CTS Encounter Details Date Type Department Care Team Description 09/21/2022 Office Visit Orthopaedics at [facility] Salome Chawla S/P endoscopic carpal [facility] [place] [phone] [place] [address] ORTHOPAEDIC SURGERY [place] [id number] Social History Tobacco Use Types Packs/Day Years [...] Pressure 116/69 09/21/2022 9:07 AM EDT Pulse - - Temperature - - Respiratory Rate - - Oxygen Saturation - - Inhaled Oxygen Concentration - - Weight - - Height - - Body Mass Index - - documented in this encounter Progress Notes Salome Chawla PA - 09/21/2022 9:20 AM EDT PATIENT NAME: Dania Adams AGE: 66 y.o. MR#: [id number] DATE OF VISIT: 09/21/2022 DATE OF SURGERY: 09/07/2022 SURGERY DESCRIPTION: Endoscopic left carpal tunnel decompression. SURGEON: Dr. Fernandez CHIEF COMPLAINT: 2 weeks S/P above procedure HISTORY OF PRESENT ILLNESS: Ms. Adams is a 66 y.o. female who presents 2 weeks s/p the above procedures for office follow up. She has been doing well since surgery. She is not having much pain at this point. She feels that her numbness and range of motion is improving. She has noticed some residual numbness in the very tips of her fingers. Ms. Adams denies fever or chills. PHYSICAL EXAM: Ms. Adams is a 66 y.o. female who is in no apparent distress, alert and cooperative. Inspection: Healing surgical incision without evidence of infection ROM/Strength: She is able to flex and extend her fingers without triggering. Wrist range of motion remains intact. She has noticed some mild pillar pain and some information technology audit manager weakness Neurovascular: Sensation is improving in the median distribution. She has noticed some residual numbness particularly in her long fingertip, but the numbness that was more diffuse throughout the palm has improved. Hand is well-perfused SURVEY RESPONSES: [facility] Surgical Postop Visit 09/19/2022 PROMIS-10 General Health Very Good PROMIS-10 Quality of Life Good PROMIS-10 Physical Health Very Good PROMIS-10 Mental Health Good PROMIS-10 Social Activity Good PROMIS-10 Everyday Activities Completely PROMIS-10 Pain 1 PROMIS-10 Fatigue Moderate PROMIS-10 Social Roles Good PROMIS-10 Anxious or Depressed Often PROMIS PHYSICAL HEALTH SCORE 50.8 PROMIS MENTAL HEALTH SCORE 41.1 Problems with surgical incision/wound after surgery No Gone to ER since knee surgery No Admitted to hospital since recent ortho surgery No Additional surgery on same body part No Satisfaction with Treatment Somewhat satisfied Choose Same Treatment Again Definitely yes Employment status before injury Other Returned to previous employment Yes Working at same capacity as before injury Yes Spending time in inpatient rehab facility No Rate overall condition today 7 ASSESSMENT: 2 weeks s/p above procedure PLAN: The patient's sutures were removed today and Steri-strips were applied without complication. Now that her suture has been removed, she may continue with ROM and gradual return to activity. She may shower and get the incision wet. She was instructed to perform scar massage over the incision. If the patient feels that she is having difficulty with pain or stiffness, we will refer her for formal hand therapy as needed. He is starting to notice similar symptoms in her right hand, but not as severe. She will contact us in the future if she would like to discuss right carpal tunnel release. The patient understands to contact us if she has any other questions or concerns. The patient will follow upas needed. The above documentation was completed using [employer] voice recognition software. documented in this encounter Plan of Treatment Upcoming Encounters Date Type Specialty Care Team Description 10/27/2022 Appointment Radiology Carie Sands APRN [address] [place], [place] [address] (Wo rk) 10/27/2022 Appointment Radiology Carie Sands APRN [address] [place], [place] [address] (Wo rk) documented as of this encounter Visit Diagnoses Diagnosis S/P endoscopic carpal tunnel release Other postprocedural status documented in this encounter Care Teams Biostatistics Director Relationship Specialty Start Date End Date Carie Sands APRN PCP - General Family Medicine 09/01/22 [address] [place] [address] documented as of this encounter
--- OUTSIDE RECORDS SUMMARY | 2022-10-08 00:47 | XMS_ITS | Encounter Summary ---
:1955 [place] [address] Care Team Providers Name Role Phone Carie Sands APRN Primary Care Provider Encounter Details Date Type Department Care Team Description 09/07/2022 Anesthesia Event Outpatient Surgery Conchita Lincoln MD [facility] [place] [address] [facility] Je Marin CRNA [facility] [place] [address] [place] [address] Anesthesia Record Procedure Summary Procedure Name Responsible Anesthesia Start Anesthesia Stop Anesthesiologist Time Time ENDOSCOPY WRIST W/ Leonardo Lincoln MD 09/07/22 0735 09/07/22 0757 RELEASE TRANSVERSE CARPAL LIGAMENT (WRVU 6.39) (Left: Wrist) Events Date Time Event Comment 09/07/2022 0716 0735 Start 0737 AN Verify 0737 An Start Data 0739 Anesthesia Ready 0747 An Tourn Inflated 0751 An Tourn Deflated 0753 an stop data 0757 Recovery or ICU Handoff Patient care was transferred to the destination unit staff after review of the patient's medica l history, current anesthetic/surgi vangie status and plan, according to the Provider Handoff Checklist. 756 Stop Name Total Midazolam 2 mg fentaNYL 50 mcg Propofol INF 166.25 mg ceFAZolin (Ancef) 2 g vial attach to sodium chloride 0 .9% 100 mL Mini-Bag 2 g Plus Ondansetron 4 mg lactated ringers infusion 300 mL Agents Name O2 Air N2O Sevoflurane (et) O2 Auxiliary Flowmeter 1 Blood No blood administrations on file. Lines, Drains, and Airways Type Details Placement Removal Incision 09/07/22; 07; Left; wrist 09/07/22 0747 by Nury Rodriguez RN PIV 09/07/22; 0646; metacarpal 09/07/22 0646 by Yasir walls, 09/07/22 0811 by vein (top of hand), right; EMANUEL Wilkes, Sandrita Parker RN towe-syl-rtrsqc catheter system; 20 gauge; Yazmin Nascimento RN; site benign; 09/07/22; 0811 documented in this encounter Social History Tobacco Use Types Packs/Day Years Used Date Smoking Tobacco: Never Smokeless Tobacco: Never Alcohol Use Standard Drinks/Week Comments Yes 0.8 (1 standard drink = 0.6 oz pure alco hol) very little Sex Assigned at Date Recorded Female 07/09/2021 3:12 PM EDT documented as of this encounter OR Notes Anesthesia Postprocedure Evaluation - Leonardo Lincoln MD - 09/07/2022 10:26 AM EDT Department of Anesthesiology Post-procedure Note Patient: Dania Adams Procedure Summary Date: 09/07/22 Room / Location: [facility] [place] [address] [place] [address] OSC Anesthesia Start: 734 Anesthesia Stop: 756 Procedure: ENDOSCOPY WRIST W/ RELEASE TRANSVERSE CARPAL LIGAMENT (WRVU 6.39) (Left Wrist) Diagnosis: Carpal tunnel syndrome on left (carpal tunnel syndrome) Surgeons: Devin Fernandez MD Responsible Provider: Leonardo Lincoln MD Anesthesia Type: MAC ASA Status: 2 All Anesthesia Providers: Anesthesiologist: Leonardo Lincoln MD CANDLE MAKING SUPERVISOR: Je Tobias CRNA Vitals Value Taken Time BP 106/60 09/07/22 0802 Temp 36.1 ??C (97 ??F) 09/07/22 0758 Pulse 56 09/07/22 0802 Resp 14 09/07/22 0758 SpO2 97 % 09/07/22 0802 Pain Level 0 09/07/22 0810 Patient Location: PACU/[facility] Level of Consciousness: Awake and Alert Pain Management: Satisfactory Analgesia PONV: None Cardiovascular Status: At Baseline and Hemodynamically Stable Respiratory Status: At Baseline and Room Air Postoperative Fluid Status: Intravascular EUvolemia Possible Anesthetic Complications: NONE apparent at time of evaluation Final Primary Anesthesia Type: MAC (The anesthetic type performed was the same as planned.) Comments: Anesthesia Preprocedure Evaluation - Leonardo Lincoln MD - 09/07/2022 7:02 AM EDT Pre-Anesthesia Evaluation for: Dania Adams a 66 y.o. female. Procedure(s): ENDOSCOPY WRIST W/ RELEASE TRANSVERSE CARPAL LIGAMENT (WRVU 6.39) Patient Active Problem List Diagnosis Date Noted ??? Carpal tunnel syndrome on left 08/03/2021 ??? Trigger finger, right ring finger 03/18/2021 ??? Numbness and tingling of left hand 03/18/2021 ??? Primary osteoarthritis involving multiple joints 05/10/2018 ??? Trigger finger 05/10/2018 ??? Hypercalcemia 05/10/2018 ??? Inflammatory arthritis 05/10/2018 ??? Presence of left artificial knee joint 05/10/2018 ??? Carpal tunnel syndrome, bilateral 05/10/2018 ??? Infiltrating ductal carcinoma of breast 05/12/2011 ??? GERD (gastroesophageal reflux disease) 05/12/2011 ??? Hot flashes 05/12/2011 ??? Vertigo 05/12/2011 Past Medical History: Diagnosis Date ??? Breast cancer 1996 RT breast CA Past Surgical History: Procedure Laterality Date ??? BREAST BIOPSY Right 1997 malignant needle bx ??? BREAST REDUCTION SURGERY Left 1996 at time of right mastectomy ??? MASTECTOMY Right 1997 with reconstruction ??? PRO UPPER GI ENDOSCOPY, BIOPSY 06/16/2011 UPPER GASTROINTESTINAL ENDOSCOPY,WITH BIOPSY SINGLE OR MULTIPLE performed by DOUGLAS COVINGTON I at [facility] ENDOSCOPY Social History Tobacco Use ??? Smoking status: Never Smoker ??? Smokeless tobacco: Never Used Substance Use Topics ??? Alcohol use: Yes Alcohol/week: 0.8 standard drinks Types: 1 Standard drinks or equivalent per week Comment: very little Social History Substance and Sexual Activity Drug Use No Allergies Allergen Reactions ??? Adhesive Tape skin blisters ??? Other [Unclassified Drug] Some types of sutures Medications: MAR and/or home medications have been reviewed. Physical Exam: Preprocedure Vitals Current as of 09/07/22 0702 BP: 129/69 Pulse: 57 Resp: 16 SpO2: 97 Temp: 36.4 ??C (97.5 ??F) Height: 160 cm (5' 3) (09/07/22) Weight: 87.5 kg (193 lb) (09/07/22) BMI: 34.18 IBW: 52.4 kg (115 lb 7.7 oz) Last edited 09/07/22 06 by EC Airway Assessment: Mallampati: II TM distance: >3 FB Neck ROM: full Cardiovascular Assessment: Rhythm: regular Pulmonary Assessment: unlabored breathing Dental Assessment: Misc Assessment: IV access: Peripheral line Last Filed Perioperative Cognitive Screening None Anesthesia Plan: ASA 2 MAC, with a(n) intravenous induction Dania Adams is a 66 y.o. female who presents for left carpal tunnel release PMH: GERD, hx of breast ca; SVT, well-controlled on atenolol Anesth Hx: multiple GA without issues METS > 4, denies card/pulm hx or symptoms. Labs: No results for input(s): WBC, HGB, HCT, PLATELET in the last 7068 hours. No results for input(s): NA, K, CL, CO2, BUN, CREATININE in the last 7068 hours. No results for input(s): AST, ALT, ALKPHOS, BILITOT, BILIDIR in the last 7068 hours. No results for input(s): PT, INR, PTT in the last 168 hours. No results found for: ABORH Pt is appropriately NPO Anesthetic Plan MAC Standard ASA monitors, IV access Region - Other Informed Consent: Anesthetic plan and risks discussed with patient. Plan discussed with CANDLE MAKING SUPERVISOR. Anesthesia Screening documented in this encounter Plan of Treatment Upcoming Encounters Date Type Specialty Care Team Description 10/27/2022 Appointment Radiology Carie Sands , CITIZENSHIP INSTRUCTOR [address] [place], [place] [address] (Wo rk) 10/27/2022 Appointment Radiology Carie Sands , CITIZENSHIP INSTRUCTOR [address] [place], [place] [address] (Wo rk) documented as of this encounter Visit Diagnoses Not on filedocumented in this encounter Administered Medications Inactive Administered Medications - up to 3 most recent administrations Medication Order MAR Action Action Date Dose Rate Site ceFAZolin (Ancef) 2 g vial attach to New Bag 09/07/2022 7:40 AM ED T 2 g sodium chloride 0.9% 100 mL Mini-Bag Plus 2 g, Intravenous, ONCE, 1 dose, On Tue09/07/22 at 0745, Administer over 30 Minutes, Indication for (Active or Suspected): Prophylaxis fentaNYL (pf) (50 mcg/mL) multi-dose Given 09/07/2022 7:35 AM ED T 50 mcg injection Intravenous, PRN, Starting on Tue09/07/22 at 0735, Until Tue09/07/22 at 0759, Anesthesia Intra-op, Routine lactated ringers infusion New Bag 09/07/2022 7:35 AM EDT 1,000 mL, at 100 mL/hr, Intravenous, CONTINUOUS, Starting on Tue09/07/22 at 0800, Until Tue09/07/22 at 0818, Day of Surgery (Day of Procedure) midazolam (pf) (Versed) (1 mg/mL) multi-dose Given 09/07/2022 7: 35 AM EDT 2 mg injection Intravenous, PRN, Starting on Tue09/07/22 at 0735, Until Tue09/07/22 at 0759, Anesthesia Intra-op, Routine ondansetron (pf) (Zofran) (2 mg/mL) inje ction Given 09/07/2022 7:40 AM EDT 4 mg Intravenous, PRN, Starting on Tue09/07/22 at 0740, Until 10/18/22 at 0759, Anesthesia Intra-op, Routine propofoL (Diprivan) (10 Rate/Dose 09/07/2022 7:50 75 mcg/kg/min 39.3 75 mg/mL) infusion Change AM EDT mL/hr Intravenous, CONTINUOUS PRN, Starting on Tue09/07/22 at 0739, Until Tue09/07/22 at 0759, Anesthesia Intra-op, Routine New Bag 09/07/2022 7:39 AM EDT 125 mcg/kg/min 65.625 mL/hr documented in this encounter Care Teams Housekeeping Room Attendant Relationship Specialty Start Date End Date Carie Sands APRN PCP - General Family Medicine 09/01/22 [address] [place] [address] documented as of this encounter
--- OUTSIDE RECORDS SUMMARY | 2022-10-08 00:47 | XMS_ITS | Encounter Summary ---
:1955 Author Organization [facility] Address [address] [facility] [place] [address] Care Team Providers Name Role Phone Ernie Morales MD Primary Care Provider Reason for Visit Reason Comments Follow-up Encounter Details Date Type Department Care Team Description 05/25/2018 Office Visit Hematology and Curtis Hung ductal carcinoma of right breast; [place] [facility] [place] Marisel Gastroesophageal reflux disease, esophag itis presence not specified; [facility] Primary o steoarthritis involving multiple joints; [facility] [address] [place], [place] HEMATOLOGY/ONCOL [address] OGY DEPT. [phone] [place] [address] Social History Tobacco Use Types Packs/Day Years Used Date Smoking Tobacco: Never Smokeless Tobacco: Never Alcohol Use Standard Drinks/Week Comments Not Asked 0.8 (1 standard drink = 0.6 oz pure alco hol) Sex Assigned at Date Recorded Female 07/09/2021 3:12 PM EDT documented as of this encounter Last Filed Vital Signs Vital Sign Reading Time Taken Comments Blood Pressure 103/54 05/25/2018 9:06 AM EDT Pulse 50 05/25/2018 9:06 AM EDT Temperature 36.1 ??C (97 ??F) 05/25/2018 9:06 AM EDT Respiratory Rate 16 05/25/2018 9:06 AM EDT Oxygen Saturation 99% 05/25/2018 9:06 AM EDT Inhaled Oxygen Concentration - - Weight 79.2 kg (174 lb 9.6 oz) 05/25/2018 9:06 AM EDT Height 158.3 cm (5' 2.32) 05/25/2018 9:06 AM EDT Body Mass Index 31.6 05/25/2018 9:06 AM EDT documented in this encounter Progress Notes Curtis Hung MD - 05/25/2018 9:30 AM EDT Subjective: Patient ID: Dania Adams is a 62 y.o. female, who returns in followup for treatment and managementof her breast cancer, and other medical problems. Her past medical history, social history, and family history are unchanged from that noted in my prior notes. Problem List: 1. Infiltrating ductal carcinoma, right breast, August 1997. a. 5-mm cancer, 0/9 lymph nodes. c. s/p right modified radical mastectomy. 1. s/p tram reconstruction. 2. s/p left reduction mammoplasty. d. Immunohistochemistries ER-/weakly MI+. 2. Left paraovarian cyst. a. Status post laparoscopic resection, March 1999. 3. Intermittent episodes of vertigo. 4. History of thyroiditis in the distant past. 5. H/O GERD. A. S/P investigational endoscopic procedure (clip) for GERD. 6. H/O mild hypercalcemia. 7. Longstanding h/o hot flashes. a. Marked improvement in past with effexor. b. Ongoing rx with paxil. 1. Trial of increased dose, 20 mg qhs, 04/30. HPI Dania returns in follow-up, she is in regards to her breast cancer been doing well over the past year. She has had no particular signs or symptoms suggestive of metastatic or recurrent disease. She has had no breast nor chest wall concerning symptoms. She has had a long-standing history of osteoarthritis but in February acutely developed a fairly painful and moderately swollen right thumb. She does not recollect any trauma or injury. She was seen a few weeks ago by Dr. Bermudez in rheumatology who raised the possibility of potentially pseudogout. In any case recently the arthritic symptoms in this right thumb have been substantially better and has not been too bothersome. Interestingly however earlier this week she acutely noted onset of swelling of her left knee. She had undergone a total knee replacement 03/04 and had really had no difficulties since then. The acute swelling has now resolved. She additionally was seen by her primary care physician for this as well. Review of Systems Except as noted above, Dania Pacheco full remaining review of systems, including constitutional, cardiac, pulmonary, GI, , neurologic, musculskeletal, and all remaining, is otherwise fully unremarkable. Current Outpatient Prescriptions on File Prior to Visit Medication Sig Dispense Refill ??? atenolol (TENORMIN) 25 mg Tablet daily. ??? Cyanocobalamin 2,500 mcg Tablet, Sublingual Place under the tongue daily. ??? Coenzyme Q10 (CO Q-10) 200 mg Capsule Take by mouth daily. ??? Potassium 99 mg Tablet Take by mouth daily. ??? loratadine (CLARITIN) 10 mg Tablet Take 10 mg by mouth daily. ??? cholecalciferol, vitamin D3, (MAXIMUM D3 ORAL) Take 200 mg by mouth daily. ??? simvastatin (ZOCOR) 20 mg Tablet Take 20 mg by mouth nightly. ??? multivitamin (THERAGRAN) tablet Take 1 tablet by mouth daily. ??? aspirin 81 mg EC tablet Take 81 mg by mouth three times a week. ??? CIS Free Text Med - Fish Lim-Nmewt4-Urw E-Flax Oil ??? PARoxetine (PAXIL) 10 mg tablet 20 MG = 2 Tablet(s), PO, q HS (Patient taking differently: 10 mgpo q HS) ??? CIS Free Text Med - vietnamese tincture (Patient not taking: No sig reported) No current facility-administered medications on file prior to visit. Objective: Physical Exam Vitals: 05/25/18 0906 BP: 103/54 Patient Position: Sitting Pulse: 50 Resp: 16 Temp: 36.1 ??C (97 ??F) TempSrc: Temporal SpO2: 99% Weight: 79.2 kg (174 lb 9.6 oz) Height: 158.3 cm (5' 2.32) Objective: Dania Adams is well appearing and in no acute distress. HEENT: Unremarkable. Musculoskeletal Exam: Within normal limits. Back without CVA or spinal tenderness to percussion or palpation. Chest: Clear. Nodes: No peripheral adenopathy is present. Cor: RRR, S1, S2. No murmur, rub, or S3 present. Breast Exam: No significant findings on exam, unchanged overall. Abdomen: Bowel sounds unremarkable, soft, nontender with no palpable HSM or other abnormalities. Extremities without significant cyanosis, clubbing, or edema. Neurologic Exam: Grossly nonfocal, cranial nerve's III - XII unremarkable, DTR's symmetric throughout. No results found for this or any previous visit (from the past 24 hour(s)). Recent Labs 05/10/18 1455 WBC 7.1 NEUTROABS 3.82 HGB 12.8 HCT 38.4 PLATELET 218 Recent Labs 05/10/18 1455 AST 21 ALT 21 ALKPHOS 80 BILITOT 0.4 Assessment and Plan: Mammo-, annual screening, unremarkable, no evidence of significant pathology. DEXA: I have reviewed films in clinic her T-scores are overall relatively unremarkable, in the low normal bone density range. Final reading from radiology pending. A/P A/P: Dania returns in follow-up, labs are as above and unremarkable. Chemistries from today are pending however chemistries from a few weeks ago when she saw Dr. Bermudez were overall unremarkable her serum calcium was normal at this time it is been minimally elevated on occasion in the past. Interestingly a PTH done was minimally elevated. Her DEXA scan is as above, she is on vitamin D supplementation but has not been taking any supplemental calcium. What I recommend is that she begin 5 or 600 mg daily, and I will let Dr. Morales be aware of this, and have her check a CMP and I think it be reasonable also to follow-up on her PTH level at that time along with calcium, in about 3 or 4 months or so. Follow-up will be scheduled in oncology in approximately 1 year. Finally I will let Dr. Bermudez had raised a question of possibly pseudogout affecting her right thumb the arthritic symptoms here however are substantially better and she is not been bothered by this for some time now think it certainly reasonable to follow this for now. X-rays had demonstrated moderately significant DJD in her fingers and hands. documented in this encounter Plan of Treatment Upcoming Encounters Date Type Specialty Care Team Description 10/27/2022 Appointment Radiology Radha Sandsmarisel Parker , LAUNCH ENGINEER [address] [place], [place] [address] (Wo rk) 10/27/2022 Appointment Radiology WichoCarie lowe Keith , LAUNCH ENGINEER [address] [place], [place] [address] (Wo rk) documented as of this encounter Visit Diagnoses Diagnosis 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 Gastroesophageal reflux disease, esophag itis presence not specified Primary osteoarthritis involving multipl e joints Hypercalcemia documented in this encounter Care Teams Manager Social Responsibility Relationship Specialty Start Date End Date Ernie Morales MD PCP - General 10/13/10 08/02/21 documented as of this encounter
--- OUTSIDE RECORDS SUMMARY | 2022-10-08 00:47 | XMS_ITS | Encounter Summary ---
:1955 Author Organization [facility] Address [address] [place] [address] Care Team Providers Name Role Phone Ernie Morales MD Primary Care Provider Encounter Details Date Type Department Care Team Description 06/03/2020 Lab Requisition [facility] Ernie Morales En counter for screening for malignant neoplasm of cervix; Pathology & A, Encounter for screening for human papill omavirus (HPV) Laboratory Medicine [address] [facility] [address] [facility] [id number] Social History Tobacco Use Types Packs/Day Years Used Date Smoking Tobacco: Never Assessed Sex Assigned at Date Recorded Not on file documented as of this encounter Plan of Treatment Not on filedocumented as of this encounter Procedures Procedure Name Priority Date/Time Associated Diagnosis Comme nts PAP TEST Today 05/30/2020 14:00 Encounter for Results fo r this EDT screening for procedure are in malignant neoplasm of the re sults cervix section. Encounter for screening for human papillomavirus (HPV) HUMAN PAPILLOMAVIRUS Today 05/30/2020 14:00 Encounter for Re sults for this (HPV) DETECTION-HIGH EDT screening for proced ure are in RISK TYPES malignant neoplasm of the re sults cervix section. Encounter for screening for human papillomavirus (HPV) documented in this encounter Results HUMAN PAPILLOMAVIRUS (HPV) DETECTION-HIGH RISK TYPES (05/30/2020 14:00 EDT) [facility] Method Time Signature Human Negative Negative 06/11/2020 [facility] Papillomavirus 7:49 EDT CENTER (HPV) LABORATORY Detection-High SERVICES Types Comment: No E6 or E7 mRNA is detected fr HPV types 16,18,31,33,35,39,45,51,52,56,58,59,66, and 68 by personal support worker mediated amplification. Specimen Anatomical Collection Method Collection Time Receive d Time (Source) Location / / Volume Laterality Pap Test (Cervix 05/30/2020 14:00 020 and/or EDT 14:10 EDT Endocervix) Ernie Morales MD MICROBIOLOGY - GENERAL ORDER KENNEDY Performing Organization Address City/State/ZIP Code Phon e Number [facility] [address] [place] [address] SERVICES PAP TEST (05/30/2020 14:00 EDT) Component Value Ref Test Analysis Performed At [facility] Range Method Time Signature Specimens A. Cervix and/or 06/11/2020 [facility] Endocervix , 7:50 [facility] ThinPrep Imaging LABORATORY System with SERVICES Manual Evaluation Specimen Satisfactory for 06/11/2020 [facility] Adequacy Evaluation - 7:50 [facility] transformation LABORATORY zone component SERVICES present General Negative for 06/11/2020 [facility] Categorization intraepithelial 7:50 [facility] lesion or LABORATORY malignancy SERVICES Attestation . 06/11/2020 [facility] Elect ronically 7:50 [facility] signed by LABORATORY Rula Gavin, SERVICES CT(ASCP) o n 06/11/2020 at 0749 Clinical History NONE 06/11/2020 [facility] 7:50 [facility] LABORATORY SERVICES HPV The result for the Human Pap illomavirus (HPV) Detection-High Risk Types is Negative. No E6 or E7 mRNA is detected from HPV types 16,18,31,33,35,39,45,51,52,56,58,59,66, and 68 by personal support worker mediated 06/11/2020 [facility] amplification.Testing was pe rformed on specimen 20UV- and was resulted on 06/11/2020 0746 EDT by JENNI, LAB INSTRUMENT RESULTS IN 7:50 [facility] LABORATORY SERVICES Scanned Images 06/11/2020 [facility] 7:50 [facility] LABORATORY SERVICES Specimen Anatomical Collection Method Collection Time Receive d Time (Source) Location / / Volume Laterality Pap Test (Cervix 05/30/2020 14:00 020 and/or EDT 10:04 EDT Endocervix) Ernie Morales MD PATHOLOGY ORDERABLES Performing Organization Address City/[facility]/ZIP Code Phon e Number [facility] [address] [place] [address] SERVICES documented in this encounter Visit Diagnoses Diagnosis Encounter for screening for malignant ne oplasm of cervix Screening for malignant neoplasm of the cervix Encounter for screening for human papill omavirus (HPV) Special screening examination for human papillomavirus (HPV) documented in this encounter Care Teams Bench Lay Out Technician Relationship Specialty Start Date End Date Ernie Morales MD PCP - General 05/20/[address] [place] [address] documented as of this encounter
--- OUTSIDE RECORDS SUMMARY | 2022-10-08 00:47 | XMS_ITS | Encounter Summary ---
:1955 Author Organization [facility] [place] [address] Care Team Providers Name Role Phone Ernie Morales MD Primary Care Provider Reason for Referral Consultation (Routine) - Closed Specialty Diagnoses / Procedures Referred By Contact Refer red To Contact Neurology Diagnoses Numbness and tingling of left hand Chayo Vega PA [facility] [address] [place] [address] [place] [address] [place] [address] Referral ID Status Reason Start Date Expiration Date Visits V isits Requested Authorized [id number] Closed Consult, 03/18/2021 03/18/2022 1 1 Test & Treat Reason for Visit Reason Comments Establish Care Left middle finger an thumb numbness Right ring trigger Consultation (Routine) - Closed Specialty Diagnoses / Procedures Referred By Contact Refer red To Contact Orthopaedics Diagnoses Paresthesia of skin ? BODY PART Ernie Moarles MD Warhold, Lance G, MD [address] [facility] BEDS [facility] [place] [address] [place] [address] Phone: Fax: Referral ID Status Reason Start Date Expiration Date Visits V isits Requested Authorized [id number] Closed Consult, 02/18/2021 02/18/2022 6 6 Test & Treat Encounter Details Date Type Department Care Team Description 03/18/2021 Office Visit Orthopaed[place] [facility] Devin Fernandez, Trigger finger, right ring f noah; [facility] Numbness and [place] [address] [place] [address] ORTHOPAEDIC SURGERY [place], [place] [address] Social History Tobacco Use Types Packs/Day Years Used Date Smoking Tobacco: Never Smokeless Tobacco: Never Alcohol Use Standard Drinks/Week Comments Not Asked 0.8 (1 standard drink = 0.6 oz pure alco hol) Sex Assigned at Date Recorded Female 07/09/2021 3:12 PM EDT documented as of this encounter Last Filed Vital Signs Vital Sign Reading Time Taken Comments Blood Pressure 125/52 03/18/2021 3:08 PM EDT Pulse 51 03/18/2021 3:08 PM EDT Temperature - - Respiratory Rate - - Oxygen Saturation - - Inhaled Oxygen Concentration - - Weight 85.7 kg (189 lb) 03/18/2021 3:08 PM EDT reported Height 158.8 cm (5' 2.5) 03/18/2021 3:08 PM EDT report ed Body Mass Index 34.02 03/18/2021 3:08 PM EDT documented in this encounter Progress Notes Chayo Vega PA - 03/18/2021 3:00 PM EDT PATIENT NAME: Dania Adams AGE: 65 y.o. MR#: [id number] DATE OF VISIT: 03/18/2021 STAFF: Dr. Fernandez CHIEF COMPLAINT: #1- Left long finger and thumb numbness x2 years #2- Right ring trigger finger x4 years HISTORY OF PRESENT ILLNESS: Ms. Adams is a right hand dominant 65 y.o. female who comes into clinic today for evaluation of bilateral hands. The patient reports approximately 4 years of right ring finger triggering that was treated with one steroid injection in 2018 at the [facility] with full resolution with 1 year of relief. The triggering is worse with gripping and it does lock requiring manual release. She reports approximately 2 years of left long and thumb numbness with occasional inclusion of the index finger. She reports associated electric shocks in the wrist distally. She reports that the numbness in the long finger and thumb is now constant. She reports that she drops things. She does reports that her right hand is numb in the morning as well. She wears nocturnal splints with intermittent relief. Medications and Allergies were reviewed in eD-H [...] MULTIPLE performed by DOUGLAS COVINGTON I at [facility] ENDOSCOPY FAMILY HX: Family History Problem Relation Age of Onset ??? Breast Cancer Maternal Grandmother ??? Breast Cancer Cousin SOCIAL HX: Social History Occupational History ??? Not on file Tobacco Use ??? Smoking status: Never Smoker ??? Smokeless tobacco: Never Used Substance and Sexual Activity ??? Alcohol use: Not on file ??? Drug use: No ??? Sexual activity: [...] nerves fire; 2+ radial pulse DIAGNOSTIC STUDIES: Bilateral hand x-rays were personally reviewed and demonstrate diffuse DIP and PIP joint and bilateral basal joint space loss and osteophyte formation. ASSESSMENT: #1- Left long finger and thumb numbness, likely carpal tunnel syndrome #2- Right ring trigger finger PLAN: - The patient was counseled that she should continue to wear her nocturnal wrist splints. The next step in evaluation is a Neurology referral for EMGs/NCS. She likely has carpal tunnel syndrome. - The patient was counseled on management options for their trigger finger including PIP joint nocturnal splinting versus A1 lavell steroid injection versus surgical A1 lavell release. After extensive discussion of the benefits and risks of each option and answering all of their questions, the patientwould like to proceed with injection today. - She will return for follow up after her EMGs/NCS for results review - The patient understands to contact us if they have any other questions or concerns. PROCEDURE NOTE: RIGHT RING FINGER FLEXOR TENDON SHEATH INJECTION A time-out was performed and the right ring finger was confirmed to be the site of injection. The patient was confirmed to have no allergies to betadine, local anesthetics, or corticosteroids. The patient was counseled about the potential risks of the procedure including infection, bleeding, steroid flare, transient increase in blood glucose, nerve/cartilage/tendon injury, and skin blanching at the injection site. There also is increased risk with repeated injections. The skin was prepped widely over the palmar aspect of the base of the finger with betadine. Using sterile technique, the needle was advanced into the flexor crease at the level of the A1 lavell . A steroid injection was then performed using 1cc 1% plain Lidocaine and 1cc (6 mg) of Celestone. The skin was cleaned with alcohol and a band-aid was applied. The patient tolerated the procedure well. Dr. Fernandez also evaluated and spoke with the patient at today's visit. Chayo Vega PA-C Department of Orthopaedics [facility] Pager: [phone] documented in this encounter Plan of Treatment Upcoming Encounters Date Type Specialty Care Team Description 10/27/2022 Appointment Radiology Carie Sands , AC/DC REWINDER [address] [place], [place] [address] (Wo rk) 10/27/2022 Appointment Radiology Carie Sands , AC/DC REWINDER [address] [place], [place] [address] (Wo rk) Scheduled Referrals Name Type Priority Associated Diagnoses Order S chedule Referral to Outpatient Referral Routine Numbness and Ordered: Neurology tingling of left 03/18/2021 hand documented as of this encounter Visit Diagnoses Diagnosis Trigger finger, right ring finger Numbness and tingling of left hand documented in this encounter Administered Medications Inactive Administered Medications - up to 3 most recent administrations Medication Order MAR Action Action Date Dose Rate Site betamethasone acetate-betamethasone Given 03/18/2021 4:22 PM EDT 6 mg sodium phosphate (Celestone) (6 mg/mL) injection 6 mg 6 mg, Intra-articular, ONCE, 1 dose, On Tue03/18/21 at 1645, Routine lidocaine (Xylocaine) 1% (10 mg/mL) injection Given 4:23 PM EDT 10 mg 10 mg 10 mg, Subcutaneous, ONCE, 1 dose, On Tue03/18/21 at 1645, Routine documented in this encounter Care Teams Labor And Delivery Registered Nurse Relationship Specialty Start Date End Date Ernie Morales MD PCP - General 10/13/10 08/02/21 documented as of this encounter
--- OUTSIDE RECORDS SUMMARY | 2022-10-08 00:48 | XMS_ITS | Encounter Summary ---
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 Angiotensin Converting Enzyme (05/10/2018 2:55 PM EDT) P athologist Signature BERTRAM 38 8 - 53 [facility] Comment: Test Performed by: [facility] - [address] [address] Specimen Anatomical Collection Method Collection Time Receive d Time (Source) Location / / Volume Laterality Blood specimen 05/10/2018 2:55 PM 018 8:42 (specimen) EDT AM EDT Resulting Agency Comment Spec In Lab Lisandro Bermudez MD CHEMISTRY ORDERABLES Performing Organization Address City/[facility]/ZIP Code Phon e Number [address] Ferritin (05/10/2018 2:55 PM EDT) athologist Signature Ferritin 144 30 - 400 [facility] ng/mL [facility] Comment: Pediatric reference ranges not verified at [facility], interpret with caution. Reference ranges for females greater jose n 50 years of age approach values for men, i.e., 30-400 ng/mL. Specimen Anatomical Collection Method Collection Time Receive d Time (Source) Location / / Volume Laterality Blood specimen 05/10/2018 2:55 PM 018 3:04 (specimen) EDT PM EDT Resulting Agency Comment Spec In Lab Lisandro Bermudez MD CHEMISTRY ORDERABLES Performing Organization Address City/[facility]/[place] [address] Iron and TIBC (05/10/2018 2:55 PM EDT) athologist Signature Iron 80 30 - 150 [facility] mcg/dL [facility] TIBC 284 250 - 450 [facility] mcg/dL [facility] Iron Saturation 28 20 - 50 % [facility] Specimen Anatomical Collection Method Collection Time Receive d Time (Source) Location / / Volume Laterality Blood specimen 05/10/2018 2:55 PM 018 3:04 (specimen) EDT PM EDT Resulting Agency Comment Spec In Lab Lisandro Bermudez MD CHEMISTRY ORDERABLES Performing Organization Address City/[facility]/ZIP Code Phon e Number [address] CRP, acute inflammation (05/10/2018 2:55 PM EDT) athologist Signature CRP 2.8 <=4.9 mg/L [facility] Specimen Anatomical Collection Method Collection Time Receive d Time (Source) Location / / Volume Laterality Blood specimen 05/10/2018 2:55 PM 018 3:04 (specimen) EDT PM EDT Resulting Agency Comment Spec In Lab Lisandro Bermudez MD CHEMISTRY ORDERABLES Performing Organization Address City/State/[place] [address] Sedimentation rate (05/10/2018 2:55 PM EDT) athologist Signature Sed Rate 9 0 - 20 [facility] mm/hr [facility] Specimen Anatomical Collection Method Collection Time Receive d Time (Source) Location / / Volume Laterality Blood specimen 05/10/2018 2:55 PM 018 3:04 (specimen) EDT PM EDT Resulting Agency Comment Spec In Lab Lisandro Bermudez MD HEMATOLOGY ORDERABLES Performing Organization Address City/[facility]/[place] [address] Phosphorus (05/10/2018 2:55 PM EDT) athologist Signature Phosphorus 3.0 2.5 - 4.5 [facility] mg/dL [facility] Specimen Anatomical Collection Method Collection Time Receive d Time (Source) Location / / Volume Laterality Blood specimen 05/10/2018 2:55 PM 018 3:04 (specimen) EDT PM EDT Resulting Agency Comment Spec In Lab Lisandro Bermudez MD CHEMISTRY ORDERABLES Performing Organization Address City/[facility]/ZIP [facility] [place] [address] Vitamin D, 25-Hydroxy (05/10/2018 2:55 PM EDT) athologist Signature 25-OH Vit D 51 30 - 100 [facility] Total ng/mL [facility] Comment: Deficient <10 ng/mL Insufficient 10 to 29 ng/mL Sufficient 30 to 100 ng/mL Potential Intoxication >100 ng/mL According to the [place] National Osteoporosi s Foundation, Vitamin D concentrations >30 ng/mL are sufficient to protect bone health. ??The National Kidney Foundation has similarly stated that pat ients with Vitamin D concentrations <30ng/mL should be considered to be insu fficient or deficient. http://[employer].Big Contacts/nkf-guidelines http://[employer].Big Contacts/nejm-VitD The [employer] Vitamin D Immunoassay detec ts both 25-OH Vitamin D2 and 25-OH Vitamin D3, but only a total Vitamin D c oncentration is reported. Specimen Anatomical Collection Method Collection Time Receive d Time (Source) Location / / Volume Laterality Blood specimen 05/10/2018 2:55 PM 018 6:30 (specimen) EDT AM EDT Resulting Agency Comment Spec In Lab Lisandro Bermudez MD CHEMISTRY ORDERABLES Performing Organization Address City/[facility]/ZIP Code Phon e Number [address] (ABNORMAL) PTH (05/10/2018 2:55 PM EDT) athologist Signature PTH 68 (H) 15 - 65 [facility] Specimen Anatomical Collection Method Collection Time Receive d Time (Source) Location / / Volume Laterality Blood specimen 05/10/2018 2:55 PM 018 3:04 (specimen) EDT PM EDT Resulting Agency Comment Spec In Lab Lisandro Bermudez MD CHEMISTRY ORDERABLES Performing Organization Address City/[facility]/ZIP [facility] [place] [address] (ABNORMAL) Comprehensive metabolic panel (non-fasting) (05/10/2018 2:55 PM EDT) P athologist Signature Glucose Lvl 115 65 - 199 [facility] mg/dL [facility] Comment: Diabetes: >=200 mg/dL plus symp toms BUN 13 8 - 18 mg/dL [facility] Creatinine 1.07 0.70 - 1.20 mg/dL [facility] Sodium 141 135 - 145 mmol/L [facility] Potassium 4.3 3.5 - 5.0 mmol/L [facility] Comment: Please note: ??Patients with WBC >100,00 0 may have falsely elevated Potassium levels. ??For accurate Potassium quantif ication in these patients send serum separator tube (gold top) for subsequent determinations. ??Contact the Clinical Chemistry Laboratory if there are any qu estions. Chloride 105 98 - 107 mmol/L [facility] CO2 25 22 - 31 mmol/L [facility] Anion Gap 11 5 - 15 mmol/L [facility] Calcium 10.3 8.5 - 10.5 mg/dL [facility] Total Protein 7.0 6.1 - 8.0 gm/dL [facility] Albumin 4.2 3.2 - 5.2 gm/dL [facility] AST 21 0 - 30 unit/L [facility] ALT 21 0 - 30 unit/L [facility] Alk Phos 80 40 - 104 unit/L [facility] Total Bilirubin 0.4 0.2 - 1.3 mg/dL [facility] Estimated GFR 56 (L) >=60 mL/min/1.73 m?? [facility] Comment: The eGFR was calculated using the CKD-EP I equation. As with all creatinine based estimates of kidney function, eGFR values calculated with the CKD-EPI equation are not accurate in patients wi th acute kidney failure, extremes of body mass or the acutely ill. http://[employer]/Origo.bynkdep http://Epuls/MCnkf eGFR 64 >=60 mL/min/1.73 m?? [facility] Comment: The eGFR was calculated using the CKD-EP I equation. As with all creatinine based estimates of kidney function, eGFR values calculated with the CKD-EPI equation are not accurate in patients wi th acute kidney failure, extremes of body mass or the acutely ill. http://Ep[employer]/Origo.bynkdep http://Epuls/[facility] Specimen Anatomical Collection Method Collection Time Receive d Time (Source) Location / / Volume Laterality Blood specimen 05/10/2018 2:55 PM 018 3:04 (specimen) EDT PM EDT Resulting Agency Comment Spec In Lab Lisandro Bermudez MD CHEMISTRY ORDERABLES Performing Organization Address City/State/[place] [address] XR Hands Min 3 views Bilat (05/10/2018 [...] a small nonspecific er osion. Procedure Note Jacqueline Kamara MD - 05/10/2018Formattin g of this note [...] documented in this encounter Visit Diagnoses Diagnosis Gastroesophageal reflux disease, esophag itis presence not specified Primary osteoarthritis involving multipl e joints Trigger finger, unspecified finger, unsp ecified laterality Hypercalcemia Inflammatory arthritis Unspecified inflammatory polyarthropathy Presence of left artificial knee joint Knee joint replacement by other means Carpal tunnel syndrome, bilateral Carpal tunnel syndrome Primary osteoarthritis involving multipl e joints Inflammatory arthritis Unspecified inflammatory polyarthropathy documented in this encounter Care Teams Fire Regulator Relationship Specialty Start Date End Date Ernie Morales MD PCP - General 10/13/10 08/02/21 documented as of this encounter
--- OUTSIDE RECORDS SUMMARY | 2022-10-08 00:48 | XMS_ITS | Encounter Summary ---
:1955 Author Organization [facility] [place] [address] Care Team Providers Name Role Phone Ernie Morales MD Primary Care Provider Encounter Details Date Type Department Care Team Description 08/30/2012 Hospital [place] [address] Social History Tobacco Use Types Packs/Day Years Used Date Smoking Tobacco: Never Smokeless Tobacco: Never Alcohol Use Standard Drinks/Week Comments Not Asked 0.8 (1 standard drink = 0.6 oz pure alco hol) Sex Assigned at Date Recorded Female 07/09/2021 3:12 PM EDT documented as of this encounter Medications at Time of Discharge Medication Sig Dispensed Refills Start Date End Date multivitamin (THERAGRAN) Take 1 tablet by 0 tablet mouth daily. aspirin 81 mg EC tablet Take 81 mg by mouth 0 three times a week. CIS Free Text Med - serbian 0 05/18/20 10 tincture CIS Free Text Med - Fish 0 05/18/2010 [id number] E-Flax Oil PARoxetine (PAXIL) 10 mg 20 MG = 2 Tablet(s), 0 0 05/18/2010 tablet PO, q HS documented as of this encounter Plan of Treatment Upcoming Encounters Date Type Specialty Care Team Description 10/27/2022 Appointment Radiology Carie Sands , FLASH OVEN OPERATOR [address] [place], [place] [address] (Wo rk) 10/27/2022 Appointment Radiology Carie Sands , FLASH OVEN OPERATOR [address] [place] [address] (Wo rk) documented as of this encounter Procedures Procedure Name Priority Date/Time Associated Comments Diagnosis MAMMO UNILATERAL Routine 08/30/2012 8:46 AM Resul ts for this DIGITAL SCREENING EDT procedure are in the results section. documented in this encounter Results MAMMO UNILATERAL DIGITAL SCREENING (08/30/2012 8:46 AM EDT) Anatomical Region Laterality Modality Breast N/A Mammography Specimen (Source) Anatomical Collection Method Collection Time Re ceived Time Location / / Volume Laterality 08/30/2012 8:46 AM EDT Narrative 09/01/2012 8:12 AM EDT LEFT BREAST MAMMOGRAPHY ?? REASON FOR EXAM: Screening, S/P Right ma stectomy ?? TECHNIQUE: Cranio-caudal (CC) and mediol ateral oblique (MLO) views of the Left breast obtained with direct digital capt ure. The exam was evaluated by CAD Version 8.3.17. ?? FINDINGS: This is a negative mammogram (ACR Catego ry 1). There is a stable fibroglandular pattern without significant change as co mpared to prior studies. There is no mammographic evidence of cancer. ? The breast is of scattered density. ? CONCLUSION ?? This is a NEGATIVE mammogram (ACR Catego ry 1). Routine screening mammography is recommended with the frequency dependent on the patient's age and breast cancer risk factors. ?? [facility] has been [facility] to this patient [facility] Procedure Note Jese Alexander MD - 09/01/2012Format ting of this note might be different from the original. LEFT BREAST MAMMOGRAPHY REASON FOR EXAM: Screening, S/P Right ma stectomy TECHNIQUE: Cranio-caudal (CC) and mediol ateral oblique (MLO) views of the Left breast obtained with direct digital capt ure. The exam was evaluated by CAD Version 8.3.17. FINDINGS: This is a negative mammogram (ACR Catego ry 1). There is a stable fibroglandular pattern without significant change as co mpared to prior studies. There is no mammographic evidence of cancer. The breast is of scattered density. CONCLUSION This is a NEGATIVE mammogram (ACR Catego ry 1). Routine screening mammography is recommended with the frequency dependent on the patient's age and breast cancer risk factors. A letter has been sent to this patient b [facility]. Curtis Hung MD IMG MAMMO ORDERABLES documented in this encounter Visit Diagnoses Not on filedocumented in this encounter Care Teams Clam Bed Laborer Relationship Specialty Start Date End Date Ernie Morales MD PCP - General 10/13/10 08/02/21 documented as of this encounter
--- OUTSIDE RECORDS SUMMARY | 2022-10-08 00:48 | XMS_ITS | Encounter Summary ---
:1955 Author Organization [facility] Address [address] [place] [address] Care Team Providers Name Role Phone Ernie Morales MD Primary Care Provider Reason for Visit Reason Comments Follow-up Encounter Details Date Type Department Care Team Description 08/30/2012 Follow-Up Hematology and Curtis Hung Malignan t neoplasm of breast (female), unspecified site; Oncology at [facility] Infiltrating ductal carcinoma of breast; [facility] SHERWIN D (gastroesophageal reflux disease); Drive Hot flashes; [place] [phone] HEMATOLOGY/ONCOLOGY Vertigo [phone] DEPT. [place], [place] [address] (Wo rk) Social History Tobacco Use Types Packs/Day Years Used Date Smoking Tobacco: Never Smokeless Tobacco: Never Alcohol Use Standard Drinks/Week Comments Not Asked 0.8 (1 standard drink = 0.6 oz pure alco hol) Sex Assigned at Date Recorded Female 07/09/2021 3:12 PM EDT documented as of this encounter Last Filed Vital Signs Vital Sign Reading Time Taken Comments Blood Pressure 126/63 08/30/2012 9:12 AM EDT Pulse 66 08/30/2012 9:12 AM EDT Temperature 37 ??C (98.6 ??F) 08/30/2012 9:12 AM EDT Respiratory Rate 20 08/30/2012 9:12 AM EDT Oxygen Saturation 98% 08/30/2012 9:12 AM EDT Inhaled Oxygen Concentration - - Weight 76.4 kg (168 lb 6.9 oz) 08/30/2012 9:12 AM EDT Height 160 cm (5' 2.99) 08/30/2012 9:12 AM EDT Body Mass Index 29.84 08/30/2012 9:12 AM EDT documented in this encounter Progress Notes Curtis Hung MD - 08/30/2012 10:09 AM EDT Subjective: Patient ID: Dania Adams is a 56 y.o. female, who returns in followup for [...] s/p left reduction mammoplasty. d. Immunohistochemistries ER-/weakly [place]+. 2. Left paraovarian cyst. a. Status post [...] increased dose, 20 mg qhs, 04/30. HPI Danai returns in followup. She has overall been doing reasonably well over the last year. Since I had last seen her she has had no breast nor chest wall complaints. She has no significant musculoskeletal difficulties. She is continuing on Paxil currently 20 mg p.o. q.d. and thinks that this is very helpful controlling her hot flashes. They are if anything better over the last year. She probably has about four to six per day. They are of fairly modest intensity and duration now. She occasionally awakens but very uncommonly. She had a number of years ago undergone an endoscopic procedure for treatment of reflux on a study here at [facility] and had seen Dr. Berman about a year ago for followup of this. Her GI symptoms are a little worse over the last year. She is really having minimal reflux and heartburn now. She has just an ill-defined sense of fullness that is intermittent and erratic, and she does not find it too bothersome but she does think it is a little worse over the last year. She has had no signs or symptoms suggestive of recurrent disease. She has had no other significant interval illnesses. Review of Systems Except as noted above, Dania Pacheco full remaining review of systems, including constitutional, cardiac, pulmonary, GI, , neurologic, musculskeletal, and all remaining, is otherwise fully unremarkable. Current outpatient prescriptions ordered prior to encounter Medication Sig Dispense Refill ??? multivitamin (THERAGRAN) tablet Take 1 tablet by mouth daily. ??? aspirin 81 mg EC tablet Take 81 mg by mouth three times a week. ??? omeprazole (PRILOSEC) 20 mg capsule Take 20 mg by mouth nightly. ??? Glucosamine Sulfate 500 mg Tab Take 1,000 mg by mouth daily. ??? CIS Free Text Med - french tincture ??? CIS Free Text Med - Fish Ezh-[id number]-Trl E-Flax Oil ??? PARoxetine (PAXIL) 10 mg tablet 20 MG = 2 Tablet(s), PO, q HS Objective: Physical Exam Filed Vitals: 08/30/12 0912 BP: 126/63 Pulse: 66 Temp: 37 ??C (98.6 ??F) TempSrc: Oral Resp: 20 Height: 160 cm (5' 2.99) Weight: 76.4 kg (168 lb 6.9 oz) SpO2: 98% Objective: Dania Adams is well appearing and in no acute distress. HEENT: Unremarkable. Musculoskeletal Exam: Within normal limits. Back without CVA or spinal tenderness to percussion or palpation. Chest: Clear. Nodes: No peripheral adenopathy is present. Cor: RRR, S1, S2. No murmur, rub, or S3 present. Breast Exam: Unchanged from prior exam. Abdomen: Bowel sounds unremarkable, soft, nontender with no palpable HSM or other abnormalities. Extremities without significant cyanosis, clubbing, or edema. Neurologic Exam: Grossly nonfocal, cranial nerve's III - XII unremarkable, DTR's symmetric throughout. Recent Labs Basename 08/30/12 0815 ??? WBC 6.5 ??? NEUTROABS 3.63 ??? HGB 13.6 ??? HCT 40.2 ??? PLATELET 212 Recent Labs Basename 08/30/12 0815 ??? AST 22 ??? ALT 26 ??? ALKPHOS 71 ??? BILITOT 0.5 Mammo, annual screening. I have preliminary reviewed films in clinic and see no significant findings on exam or change. She had some benign-appearing calcifications that are roughly comparable. Final reading and full comparisons from Radiology pending. Assessment and Plan: Dania is overall doing reasonably well at present with no signs or symptoms suggestive of recurrent disease. As always, she had several questions about breast cancer and things she had read about, which I answered. Her GI symptoms are overall slightly worse but not significantly so over the last year. Followup will be scheduled in Oncology in approximately one year. documented in this encounter Plan of Treatment Upcoming Encounters Date Type Specialty Care Team Description 10/27/2022 Appointment Radiology Carie Sands , TOOL REPAIR TECHNICIAN [address] [place], [place] [address] (Wo rk) 10/27/2022 Appointment Radiology Carie Sands , TOOL REPAIR TECHNICIAN [address] [place], [place] [address] (Wo rk) documented as of this encounter Procedures Procedure Name Priority Date/Time Associated Comments Diagnosis DIFFERENTIAL, STAT 08/30/2012 8:15 AM Results for this AUTOMATED EDT procedure are i n the results section. CBC (WITH DIFF) STAT 08/30/2012 8:15 AM Malignant neoplasm Results for this EDT of breast (female), procedur e are in unspecified site the results section. COMPREHENSIVE STAT 08/30/2012 8:15 AM Malignant neoplasm Re sults for this METABOLIC PANEL EDT of breast (female), proce dure are in (NON-FASTING) unspecified site the result s section. documented in this encounter Results DIFFERENTIAL, AUTOMATED (08/30/2012 8:15 AM EDT) P athologist Signature Neutrophils % 55.8 34.0 - CERNER 71.0 % MILLENNIUM Neutr Abs (ANC) 3.63 1.50 - CERNER 6.30 MILLENNIUM x10(3)/mcL Lymphocytes % 33.1 19.0 - CERNER 53.0 % MILLENNIUM Lymphocytes Abs 2.2 1.0 - 3.6 CERNER x10(3)/mcL MILLENNIUM Monocytes % 8.3 4.0 - 13.0 CERNER % MILLENNIUM Monocyte Abs 0.5 0.2 - 1.0 CERNER x10(3)/mcL MILLENNIUM Eosinophils % 1.7 0.0 - 7.0 CERNER % MILLENNIUM Eosinophils Abs 0.1 0.0 - 0.5 CERNER x10(3)/mcL MILLENNIUM Basophils % 0.8 0.0 - 2.0 CERNER % MILLENNIUM Basophils Abs 0.0 0.0 - 0.2 CERNER x10(3)/mcL MILLENNIUM Immature Gran % 0.30 0.00 - CERNER 0.66 % MILLENNIUM Comment: Immature granulocytes(IG's)percentage an d absolute count will include metamyelocytes, myelocytes, and promyelo cytes. Blood smears from CBCs yielding IG's will be scanned manually for concor dance. If this scan disagrees with the automated IG or if promyelocytes are not ed, a manual differential will be performed. Ludivina Gran Abs 0.02 0.00 - 0.05 x10(3)/mcL CER NER MILLENNIUM Specimen Anatomical Collection Method Collection Time Receive d Time (Source) Location / / Volume Laterality Blood specimen 08/30/2012 8:15 AM 012 8:26 (specimen) EDT AM EDT Curtis Hung MD HEMATOLOGY ORDERABLES Performing Organization Address City/State/[place] [address] CERNER MILLENNIUM Comprehensive metabolic panel (non-fasting) (08/30/2012 8:15 AM EDT) athologist Signature Glucose Lvl 83 60 - 199 CERNER mg/dL MILLENNIUM Comment: Diabetes: >=200 mg/dL plus symp toms BUN 12 8 - 18 mg/dL CERNER MILLENNIUM Creatinine 0.92 0.70 - 1.20 mg/dL CERNER MILL ENNIUM Comment: Please note that the pediatric reference intervals supplied above were not validated at [facility]. Results from pediatri c patients should be interpreted in conjunction to the patient's age, height and muscle mass. Sodium 140 135 - 145 mmol/L CERNER BRINA NIUM Potassium 4.1 3.5 - 5.0 mmol/L CERNER BRINA NIUM Comment: Please note: ??Patients with WBC >100,00 0 may have falsely elevated Potassium levels. ??For accurate Potassium quantif ication in these patients send serum separator tube (gold top) for subsequent determinations. ??Contact the Clinical Chemistry Laboratory if there are any qu estions. Chloride 105 98 - 107 mmol/L CERNER MILLENN IUM CO2 30 22 - 31 mmol/L CERNER MILLENNI UM Anion Gap 5 5 - 15 mmol/L CERNER MILLENNIU M Calcium 10.0 8.5 - 10.5 mg/dL CERNER BRINA NIUM Total Protein 7.4 6.4 - 8.3 gm/dL CERNER MIL LENNIUM Albumin 4.1 3.2 - 5.2 gm/dL CERNER MILLENN IUM AST 22 0 - 30 unit/L CERNER MILLENNIU M ALT 26 0 - 30 unit/L CERNER MILLENNIU M Alk Phos 71 40 - 104 unit/L CERNER MILLENN IUM Total Bilirubin 0.5 0.2 - 1.3 mg/dL CERNER M ILLENNIUM Bili, Direct 0.1 0.0 - 0.3 mg/dL CERNER MILL ENNIUM Estimated GFR >60 >=60 CERNER MILLENNIU M Comment: The National Kidney Disease Education Pr ogram (NKDEP) has recommended all laboratories report estimated GFR (eGFR) along with plasma creatinine measurements to assist you with recognit ion of early kidney disease. Caveats: ??Plasma creatinine should be a t steady-state (unchanged within the past week). For patient s multiply eGFR by 1.2. The MDRD equation was developed using patients be tween the ages of 18 and 70 years. ?? The MDRD equation has not been validated for patients < 18 years of age and should not be used to assess renal function in the pediatric population. ??The MDRD eGFR equation will also overestimate the true GFR of patients above the age of 70. ??This overestimation is variable bu t increases with age. At present, NKDEP does NOT recommend usi ng the MDRD equation for drug dosing purposes and pharmacists should continue to use their current dosing methods. In addition, numerical eGFR values great er than 60 ml/min/1.73 square meters should be treated as > 60, and not an ex act number due to greater inaccuracies at these higher values. Per NKDEP, they classify normal renal function as any GFR >60ml/min/1.73 square meters; chronic kidney disease wh en GFR <60, and renal failure when GFR <15. ??This calculation may not be valid for patients with atypical muscle mass (very lean or obese), acute renal failur e, and in patients with diabetic kidney disease. References: http://nkdep.nih.gov/resources/NKDEP_Sug gestn4Labs_0606_508.pdf http://www.kidney.org/professionals/kls/ pdf/faq_gfr.pdf Santiago K, Cheko NA, John AK, Albaro TS, Beti AD, Candi MICHELET. Relative performance of the MDRD and CKD-EPI equa tions for estimating glomerular filtration rate among patients with vari ed clinical presentations. Clin J Am Soc Nephrol;6:1963-72. Specimen Anatomical Collection Method Collection Time Receive d Time (Source) Location / / Volume Laterality Blood specimen 08/30/2012 8:15 AM 012 8:26 (specimen) EDT AM EDT Resulting Agency Comment Spec In Lab Curtis Hung MD CHEMISTRY ORDERABLES Performing Organization Address City/State/ZIP Code Phon e Number [place] [phone] CERNER MILLENNIUM CBC (with Diff) (08/30/2012 8:15 AM EDT) P athologist Signature WBC 6.5 4.0 - 10.0 CERNER x10(3)/mcL MILLENNIUM RBC 4.31 3.93 - 5.22 CERNER x10(6)/mcL MILLENNIUM Hemoglobin 13.6 11.2 - 15.7 CERNER gm/dL MILLENNIUM Hematocrit 40.2 34.0 - 45.0 CERNER % MILLENNIUM MCV 93.3 79.0 - 94.0 CERNER fL MILLENNIUM MCH 31.6 26.6 - 32.2 CERNER pg MILLENNIUM MCHC 33.8 32.0 - 36.5 CERNER gm/dL MILLENNIUM Platelets 212 145 - 370 CERNER x10(3)/mcL MILLENNIUM RDWSD 41.0 35.0 - 46.0 CERNER fL MILLENNIUM RDWCV 12.1 10.9 - 14.4 CERNER % MILLENNIUM MPV 9.4 9.0 - 12.0 CERNER fL MILLENNIUM Specimen Anatomical Collection Method Collection Time Receive d Time (Source) Location / / Volume Laterality Blood specimen 08/30/2012 8:15 AM 012 8:26 (specimen) EDT AM EDT Resulting Agency Comment Spec In Lab Curtis Hung MD HEMATOLOGY ORDERABLES Performing Organization Address City/State/[place] [address] [facility] documented in this encounter Visit Diagnoses Diagnosis Malignant neoplasm of breast (female), u nspecified site Infiltrating ductal carcinoma of breast Malignant neoplasm of breast (female), u nspecified site GERD (gastroesophageal reflux disease) Esophageal reflux Hot flashes Symptomatic menopausal or female climact iliana states Vertigo Dizziness and giddiness documented in this encounter Care Teams Slate Trimmer Relationship Specialty Start Date End Date Ernie Morales MD PCP - General 10/13/10 08/02/21 documented as of this encounter
--- OUTSIDE RECORDS SUMMARY | 2022-10-08 00:48 | XMS_ITS | Encounter Summary ---
:1955 Author Organization [facility] [place] [address] Care Team Providers Name Role Phone Ernie Morales MD Primary Care Provider Encounter Details Date Type Department Care Team Description 06/16/2011 Surgery Gastroenterology at [facility] [place] Cullen, UPPER GASTROINTESTINAL [facility] Medhat Cali MD ENDOSCOPY,[place] [address] [facility] MEDICAL SINGLE OR MULTIPLE ([facility] [phone] Alaniz) [place] [address] Social History Tobacco Use Types Packs/Day Years Used Date Smoking Tobacco: Never Smokeless Tobacco: Never Alcohol Use Standard Drinks/Week Comments Not Asked 0.8 (1 standard drink = 0.6 oz pure alco hol) Sex Assigned at Date Recorded Female 07/09/2021 3:12 PM EDT documented as of this encounter Last Filed Vital Signs Vital Sign Reading Time Taken Comments Blood Pressure 113/67 06/16/2011 8:40 AM EDT Pulse 58 06/16/2011 8:40 AM EDT Temperature 36.4 ??C (97.5 ??F) 06/16/2011 7:20 AM EDT Respiratory Rate 16 06/16/2011 8:40 AM EDT Oxygen Saturation 96% 06/16/2011 8:40 AM EDT Inhaled Oxygen Concentration - - Weight 69.4 kg (153 lb) 06/16/2011 7:20 AM EDT Height 160 cm (5' 3) 06/16/2011 7:20 AM EDT Body Mass Index 27.1 06/16/2011 7:20 AM EDT documented in this encounter Discharge Instructions Discharge InstructionsTrena Barros RN - 06/16/2011 8:45 AM EDT Please call [phone], before 5pm with problems, questions or concerns, after 5pm call the Hospital at [phone] and ask to speak to the Paver Installer cotton weigher operator and the pebble mill operator will contact that person for you. Discharge instructions reviewed with patient who expresses understanding. Patient InstructionsTerrence Berman MD - 06/16/2011 8:31 AM EDT Please see Recommendations in the Provation procedure report which is documented in the procedural note in E-DH. AttachmentsThe following attachments cannot be sent through Care Everywhere. UPPER GI ENDOSCOPY: WHAT TO EXPECT AT HOME (SPANISH)documented in this encounter Medications at Time of Discharge Medication Sig Dispensed Refills Start Date End Date multivitamin (THERAGRAN) Take 1 tablet by 0 tablet mouth daily. aspirin 81 mg EC tablet Take 81 mg by mouth 0 three times a week. CIS Free Text Med - mongolian 0 05/18/20 10 tincture CIS Free Text Med - Fish 0 05/18/2010 Ggo-Uvena3-Ahw E-Flax Oil PARoxetine (PAXIL) 10 mg 20 MG = 2 Tablet(s), 0 0 05/18/2010 tablet PO, q HS documented as of this encounter H&P Notes Terrence Berman MD - 06/16/2011 8:11 AM EDT H&P done prior to procedure and documented in the endoscopy report located in the Procedures tab in eDH. Airway and neck assessed. documented in this encounter Miscellaneous Notes Miscellaneous - Provider, Scanning - 06/16/2011 10:11 PM EDT Miscellaneous - Provider, Scanning - 06/16/2011 10:15 AM EDT Op Note - Terrence Berman MD - 06/16/2011 8:30 AM EDT [facility] [place] Operative Note Patient Name: Dania Adams : [id number] MR#: [id number] Case Date: 06/16/2011 Surgeon: Surgeon(s) and Role: * TERRENCE BERMAN MD - Primary Preoperative diagnosis: GERD s/p NDO plication Postoperative diagnosis: GERD, possible short segment Melvin's Procedure(s): UPPER GI ENDOSCOPY Please see Procedure note. OR Attestation - Terrence Berman MD - 06/16/2011 8:30 AM EDT As the attending physician, I personally performed the entire procedure. documented in this encounter Plan of Treatment Upcoming Encounters Date Type Specialty Care Team Description 10/27/2022 Appointment Radiology Carie Sands APRN [address], [place] [address] (Wo rk) 10/27/2022 Appointment Radiology Carie Sands APRN [address] [place], [place] [address] (Wo rk) documented as of this encounter Procedures Procedure Name Priority Date/Time Associated Comments Diagnosis UPPER GASTROINTESTINAL Routine 06/17/2011 7:02 GERD ENDOSCOPY,WITH BIOPSY AM EDT (gastroesophageal SINGLE OR MULTIPLE reflux disease) SURGICAL PATHOLOGY Routine 06/16/2011 10:41 Resul ts for this REPORT AM EDT procedure are i n the results section. UPPER GASTROINTESTINAL 06/16/2011 8:03 GERD ENDOSCOPY,WITH BIOPSY AM EDT (gastroesophageal SINGLE OR MULTIPLE ([facility] reflux disease) 2.49) UPPER GI ENDOSCOPY Routine 06/16/2011 7:44 Result s for this AM EDT procedure are i n the results section. documented in this encounter Results SURGICAL PATHOLOGY REPORT (06/16/2011 10:41 AM EDT) [facility] Method Time Signature Surgical CERNER Pathology ? [facility] Report ? Provider: ?? TERRENCE BERMAN ??Pt. Name: ?? SEBASTIEN Del Cid, DANIA Arce ?I ? Acc #: ?[id number] ?Pt. MRN: ?[id number] ? Col Date: ?? 1 ? /Sex: ?1955,(55 years),Female ? Rec Date: ?? 06/16/2011 ? LOC: ?4T ? SURGICAL PATHOLOGY ? ---Pathologic Diagnosis--- ? Endoscopic biopsy - S quamous esophageal and cardiac mucosa within normal ? limits. No goblet cell metaplasia is seen. ? CR-0 ? 06/18/11 ? AAS ? 06/18/11 Verified by: ? Giovanni Hess MD ? Pathologist ? (Electronic Si gnature) ? The attending pathologist whose signature appears o n this report has ? reviewed all diagnostic slides and has edited the mesfin ss and/or ? microscopic portion of the report in rendering the fi nal pathologic ? diagnosis. ? ---Microscopic Description--- ? Slides reviewed, microscopic description not recorded . ? ---Gross Description--- ? Labeled/Fixative: ? Esophagus 37 to 38 cm, formal in. ? Qty/Size/Weight: ?Multiple, ranging from 0.1 c m to 0.4 cm in ? greatest dimension. ? Tissue Description: ?? Soft, noriega tissues. ? Sections/Processing: ??(T2) ??aje/SHB ? ---Clinical Information--- ? Specimen Submitted: ? A - Esophagus 37 to 38 cm ? Clinical History/Diagnosis: ? GERD, possible short segment intestinal metaplasia Specimen (Source) Anatomical Collection Method Collection Time Re ceived Time Location / / Volume Laterality 06/16/2011 10:41 AM EDT Terrence Cali MD PATHOLOGY/CYTOLOGY ORDERABLE S Performing Organization Address City/State/[place] [address] [facility] (06/16/2011 7:44 AM EDT) Component Value Ref Test Analysis Performed At [facility] gist Range Method Time Signature UPPER GI [facility] ENDOSCOPY Endoscopy Patient Name: Dania Adams ? Procedure Date: 06/16/2011 07:44:05 AM ? Date of : 1955 ? Age: 55 ? Procedure: ? Upper GI endoscopy Indications: ? Follow-up of gastro-esophageal refl ux ? disease Providers: ? Terrence Berman MD, Andressa ? Myriam, RN, Gabe Jacques, ? Managing Manager Referring : ?Ernie Morales MD Medicines: ? Midazolam 4 mg IV, Fentanyl 200 ? micrograms IV, Benzocaine spr ay Complications: ? No immediate complications Procedure: ? Pre-Anesthesia Assessment: ? - Prior to the procedure, a H istory ? and Physical was performed, a nd ? patient medications, allergie s and ? sensitivities have been revie wed. The ? patient's tolerance of previo us ? anesthesia has been reviewed. ? - The risks and benefits of t he ? procedure and the sedation op tions ? and risks were discussed with the ? patient. All questions were a nswered ? and informed consent was obta ined. ? - Mental Status Examination: alert ? and oriented. ? - Airway Examination: normal ? oropharyngeal airway and neck ? mobility. ? - Respiratory Examination: cl ear to ? auscultation. ? - CV Examination: normal. ? - ASA Grade Assessment: II - A ? patient with mild systemic di sease. ? - After reviewing the risks a nd ? benefits, the patient was michel med in ? satisfactory condition to und ergo the ? procedure. ? - The anesthesia plan was to use ? moderate sedation/analgesia ? (conscious sedation). ? - Immediately prior to admini stration ? of medications, the patient w as ? re-assessed for adequacy to r eceive ? sedatives. ? - The heart rate, respiratory rate, ? oxygen saturations, blood pre ssure, ? adequacy of pulmonary ventila tion, ? and response to care were mon itored ? throughout the procedure. ? - The physical status of the patient ? was re-assessed after the pro cedure. ? The procedure, indications, b enefits, ? risks and alternatives were e xplained ? to the patient. Specifically ? discussed were potential ? complications including, but not ? limited to, bleeding, perfora tion, ? infection, missing a cancer, and ? adverse medication reactions. The ? Endoscope was introduced thro [facility] the ? and advanced to the. The lester ent ? tolerated the procedure well. The ? upper GI endoscopy was accomp lished ? without difficulty. ? Findings: ? The Z-line was variable and was found 37 to 38 cm ? from the incisors. Biopsies were taken with a cold ? forceps for histology. A small hiatus hernia was ? found. The proximal extent of the gastric folds (end ? of tubular esophagus) was 37 cm from the incisors. ? The hiatal narrowing was 39 cm from the incisors. The ? cardia and gastric fundus were normal on ? retroflexion. There was a site anteriorly which ? appeared to have some mild pleat, and no evident ? implant. It may be completely submucosal.The examined ? duodenum was normal. ? Impression: ?- Z-line variable, 37 to 38 cm fro m ? the incisors. ? - Hiatus hernia. Small. No ev ident ? implant and only lild remodel ing ? evident. ? - Normal examined duodenum. Recommendation: ?- Await pathology results. ? - Continue present medication s. ? - Consider surgical anti-refl ux ? therapy. ? - Consider endoscopic anti-re flux ? therapy as new ones emerge to ? clinical practice. ? Terrence Berman MD Signed Date: 06/16/2011 08:50:41 AM Number of Addenda: 0 ? Note initiated on 06/16/2011 07:44:05 AM Specimen (Source) Anatomical Collection Method Collection Time Re ceived Time Location / / Volume Laterality 06/16/2011 7:44 AM EDT Unknown GENERAL SURGICAL ORDERABLES Performing Organization Address City/State/ZIP Code Phon e Number [facility] documented in this encounter Visit Diagnoses Diagnosis GERD (gastroesophageal reflux disease) Esophageal reflux GERD (gastroesophageal reflux disease) Esophageal reflux documented in this encounter Administered Medications Inactive Administered Medications - up to 3 most recent administrations Medication Order MAR Action Action Date Dose Rate Site benzocaine (HURRICANE) 20 % oral New Bag 06/16/2011 8:08 AM EDT 20 % spray CONTINUOUS PRN, Pain, Starting on Tue06/16/11 at 0808, Until Tue06/16/11 at 1350, Intra-Operative (Intra-Procedure) fentaNYL 50mcg/mL injection Given 06/16/2011 8:08 AM EDT 100 mcg ONCE PRN, 1 dose, Starting on Tue06/16/11 at 0808, Until Tue06/16/11 at 0808, Pain, Intra-Operative (Intra-Procedure), Routine fentaNYL 50mcg/mL injection Given 06/16/2011 8:13 AM EDT 50 mcg Intravenous, ONCE PRN, 1 dose, Starting on Tue06/16/11 at 0813, Until Tue06/16/11 at 0813, Pain, Intra-Operative (Intra-Procedure), Routine fentaNYL 50mcg/mL injection Given 06/16/2011 8:22 AM EDT 50 mcg Intravenous, ONCE PRN, 1 dose, Starting on Tue06/16/11 at 0822, Until Tue06/16/11 at 0822, Pain, Intra-Operative (Intra-Procedure), Routine midazolam (VERSED) injection Given 06/16/2011 8:08 AM EDT 2 mg ONCE PRN, 1 dose, Starting on Tue06/16/11 at 0808, Until Tue06/16/11 at 0808, Sleep, Intra-Operative (Intra-Procedure), Routine midazolam (VERSED) injection Given 06/16/2011 8:13 AM EDT 1 mg Intravenous, ONCE PRN, 1 dose, Starting on Tue06/16/11 at 0813, Until Tue06/16/11 at 0813, Sleep, Intra-Operative (Intra-Procedure), Routine midazolam (VERSED) injection Given 06/16/2011 8:22 AM EDT 1 mg Intravenous, ONCE PRN, 1 dose, Starting on Tue06/16/11 at 0822, Until Tue06/16/11 at 0822, Sleep, Intra-Operative (Intra-Procedure), Routine sodium chloride 0.9% infusion New Bag 06/16/2011 7:45 AM EDT 100 mL/hr 100 mL/hr 100 mL/hr, Intravenous, CONTINUOUS, Starting on Tue06/16/11 at 0745, Until Tue06/16/11 at 1350, Endoscopy (Day of Procedure) documented in this encounter Active and Recently Administered Medications Times are shown in EDT. Continuous Medication Order 06/14/2011 06/15/2011 06/16/2011 sodium chloride 0.9% infusion (CANCELED) 0745 (New Bag - Provider: Ana Laguna RN) 100 mL/hr, at 100 mL/hr, Intravenous, CO NTINUOUS, Starting Tue06/16/11 at 0745, Until Tue06/16/11 at 1350, Endo (Pre-Procedure) PRN Medication Order 06/14/2011 06/15/2011 06/16/2011 benzocaine (HURRICANE) 20 % oral spray (CANCELED) 08 (New Bag - Provider: Andressa Miguel RN - Comment: 3 sprays orallly) CONTINUOUS PRN, Pain, Starting Tue06/16/11 at 0808, Intra-operat yamileth fentaNYL 50mcg/mL injection (COMPLETED) 807 (Given - Provider: Andressa Miguel, EMANUEL) ONCE PRN, 1 dose, Starting on Tue 1 at 0808, Until Tue06/16/11 at 0808, Pain, Intra-Operative (Intra-Procedure), Routine fentaNYL 50mcg/mL injection (COMPLETED) 812 (Given - Provider: Andressa Miguel RN) Intravenous, ONCE PRN, 1 dose, Starting on Tue06/16/11 at 0813, Until Tue06/16/11 at 0813, Pain, Intra-Operative (Intra-Procedure), Routine fentaNYL 50mcg/mL injection (COMPLETED) 821 (Given - Provider: Andressa Miguel RN) Intravenous, ONCE PRN, 1 dose, Starting on Tue06/16/11 at 0822, Until Tue06/16/11 at 0822, Pain, Intra-Operative (Intra-Procedure), Routine midazolam (VERSED) injection (COMPLETED) 807 (Given - Provider: Andressa Miguel RN) ONCE PRN, 1 dose, Starting on Tue 1 at 0808, Until Tue06/16/11 at 0808, Sleep, Intra-Operative (Intra-Procedure), Routine midazolam (VERSED) injection (COMPLETED) 812 (Given - Provider: Andressa Miguel RN) Intravenous, ONCE PRN, 1 dose, Starting on Tue06/16/11 at 0813, Until Tue06/16/11 at 08, Sleep, Intra-Operative (Intra-Procedure), Routine midazolam (VERSED) injection (COMPLETED) 821 (Given - Provider: Andressa Miguel RN) Intravenous, ONCE PRN, 1 dose, Starting on Tue06/16/11 at 0822, Until Tue06/16/11 at 08, Sleep, Intra-Operative (Intra-Procedure), Routine documented in this encounter Care Teams Board Member Relationship Specialty Start Date End Date Ernie Morales MD PCP - General 10/13/10 08/02/21 documented as of this encounter
--- OUTSIDE RECORDS SUMMARY | 2022-10-08 00:48 | XMS_ITS | Encounter Summary ---
:1955 Author Organization [facility] [place] [address] Care Team Providers Name Role Phone Ernie Morales MD Primary Care Provider Encounter Details Date Type Department Care Team Description 10/23/2014 Hospital [place] [address] Social History Tobacco Use Types Packs/Day [...] a week. CIS Free Text Med - 0 05/18/2010 burundian tincture CIS Free Text Med - Fish 0 05/18/2010 Man-Zxrqj7-Uha E-Flax Oil PARoxetine (PAXIL) 10 mg 20 MG = 2 0 05/18/2010 tablet Tablet(s), PO, q HS propranolol (INDERAL) 20 Take 20 mg by mouth 0 05/10/2018 mg TabletIndications: 3 times daily. Infiltrating ductal carcinoma of breast, unspecified laterality, GERD (gastroesophageal reflux disease), Hot flashes, Vertigo documented as of this encounter Plan of Treatment Upcoming Encounters Date Type Specialty Care Team Description 10/27/2022 Appointment Radiology Carie Sands , CONTENT WRITER [address] [place], [place] [address] (Wo rk) 10/27/2022 Appointment Radiology Carie Sands , CONTENT WRITER [address] [place], [place] [address] (Wo rk) documented as of this encounter Procedures Procedure Name Priority Date/Time Associated Comments Diagnosis MAMMO UNILATERAL Routine 10/23/2014 3:40 PM Resul ts for this DIGITAL SCREENING EST procedure are in the results section. documented in this encounter Results Mammo unilateral digital screening (10/23/2014 3:40 PM EST) Anatomical Region Laterality Modality Breast N/A Mammography Specimen (Source) Anatomical Collection Method Collection Time Re ceived Time Location / / Volume Laterality 10/23/2014 3:40 PM EST Narrative 10/24/2014 6:08 PM EST LEFT BREAST MAMMOGRAPHY ?? REASON FOR EXAM: Screening. History of R ight breast cancer. ? TECHNIQUE: Cranio-caudal (CC) and mediol ateral oblique [...] [facility] Procedure Note Saida Jimenez MD - 2013 LEFT BREAST MAMMOGRAPHY REASON FOR EXAM: Screening. History of R ight breast cancer. TECHNIQUE: Cranio-caudal (CC) and mediol ateral oblique [...] on filedocumented in this encounter Care Teams Pump Installation And Servicer Relationship Specialty Start Date End Date Ernie Morales MD PCP - General 10/13/10 08/02/21 documented as of this encounter
--- OUTSIDE RECORDS SUMMARY | 2022-10-08 00:48 | XMS_ITS | Encounter Summary ---
:1955 Author Organization [facility] [place] [address] Care Team Providers Name Role Phone Ernie Morales MD Primary Care Provider Reason for Visit Reason Onset Date Comments Research 05/04/2011 returning call Encounter Details Date Type Department Care Team Description 05/04/2011 Telephone [place] [facility] [place] Villalba (returning [facility] D taina Sauceda RN call) [place] [address] Social History Tobacco Use Types Packs/Day Years Used Date Smoking Tobacco: Never Assessed Sex Assigned at Date Recorded Female 07/09/2021 3:12 PM EDT documented as of this encounter Miscellaneous Notes Telephone Encounter - Komal Villalba RN - 05/04/2011 3:56 PM EDT Received a message from clinic GI staff that Dania wanted a phone call regarding a past GI study. Upon review it appears she participated in the NDO study where Dr. Berman appears to have implanted an NDO plicator. Called Dania and left a message to call me directly so that I could answer her questions or review them with Dr. Berman for further clarification. documented in this encounter Plan of Treatment Upcoming Encounters Date Type Specialty Care Team Description 10/27/2022 Appointment Radiology Carie Sands , SECURITY INSTALLATION TECHNICIAN [address] [place], [place] [address] (Wo rk) 10/27/2022 Appointment Radiology Carie Sands APRN [address] [place], [place] [address] (Wo rk) documented as of this encounter Visit Diagnoses Not on filedocumented in this encounter Care Teams Manager Talent Acquisition Relationship Specialty Start Date End Date Ernie Morales MD PCP - General 10/13/10 08/02/21 documented as of this encounter
--- OUTSIDE RECORDS SUMMARY | 2022-10-08 00:48 | XMS_ITS | Encounter Summary ---
:1955 Author Organization [facility] Address [address] [place] [address] Care Team Providers Name Role Phone Ernie Morales MD Primary Care Provider Reason for Visit Reason Comments Follow-up Encounter Details Date Type Department Care Team Description 10/23/2014 Follow-Up Hematology and Curtis Hung Infiltra ting ductal carcinoma of breast, unspecified laterality; Oncology at [facility] GERD (gastroesophageal reflux disease); [facility] Hot flashes; [place] [address] HEMATOLOGY/ONCOLOGY [phone] [facility] [place] [place] [address] (Wo rk) Social History Tobacco Use Types Packs/Day Years Used Date Smoking Tobacco: Never Smokeless Tobacco: Never Alcohol Use Standard Drinks/Week Comments Not Asked 0.8 (1 standard drink = 0.6 oz pure alco hol) Sex Assigned at Date Recorded Female 07/09/2021 3:12 PM EDT documented as of this encounter Last Filed Vital Signs Vital Sign Reading Time Taken Comments Blood Pressure 109/57 10/23/2014 4:01 PM EST Pulse 57 10/23/2014 4:01 PM EST Temperature 36.9 ??C (98.4 ??F) 10/23/2014 4:01 PM EST Respiratory Rate 18 10/23/2014 4:01 PM EST Oxygen Saturation 99% 10/23/2014 4:01 PM EST Inhaled Oxygen Concentration - - Weight 80.6 kg (177 lb 11.1 oz) 10/23/2014 4:01 PM EST Height - - Body Mass Index 31.48 09/20/2013 11:16 AM EDT documented in this encounter Progress Notes Curtis Hung MD - 10/25/2014 10:13 AM EST Subjective: Patient ID: Dania Adams is a 59 y.o. female, who returns in followup for [...] s/p left reduction mammoplasty. d. Immunohistochemistries ER-/weakly VA+. 2. Left paraovarian cyst. a. Status post [...] mg qhs, 04/30. HPI Dania returns in followup. In regards to her breast cancer, she has been doing well over the last year. She underwent a left knee replacement last spring and has recuperated very nicely from this. Her exercise tolerance and physical ability subsequent to this is excellent. She was having some occasional palpitations and was begun some time ago for this with atenolol and this has worked very well as well. The symptoms have resolved. She had no other cardiopulmonary symptoms associated with this. She overall feels well. Review of Systems Except as noted above, Dania Pacheco full remaining review of systems, including constitutional, cardiac, pulmonary, GI, , neurologic, musculskeletal, and all remaining, is otherwise fully unremarkable. Current Outpatient Prescriptions on File Prior to Visit Medication Sig Dispense Refill ??? multivitamin (THERAGRAN) tablet Take 1 tablet by mouth daily. ??? aspirin 81 mg EC tablet Take 81 mg by mouth three times a week. ??? omeprazole (PRILOSEC) 20 mg capsule Take 20 mg by mouth nightly. ??? CIS Free Text Med - sami tincture ??? CIS Free Text Med - Fish Ntu-Jsdzk3-Krv E-Flax Oil ??? PARoxetine (PAXIL) 10 mg tablet 20 MG = 2 Tablet(s), PO, q HS ??? Glucosamine Sulfate 500 mg Tab Take 1,000 mg by mouth daily. No current facility-administered medications on file prior to visit. Objective: Physical Exam Filed Vitals: 10/23/14 1601 BP: 109/57 Pulse: 57 Temp: 36.9 ??C (98.4 ??F) TempSrc: Oral Resp: 18 Weight: 80.6 kg (177 lb 11.1 oz) SpO2: 99% Objective: Dania Adams is well appearing and [...] XII unremarkable, DTR's symmetric throughout. Recent Labs 10/23/14 1500 WBC 8.2 NEUTROABS 4.52 HGB 13.1 HCT 37.9 PLATELET 221 Recent Labs 10/23/14 1500 AST 27 ALT 32* ALKPHOS 77 BILITOT 0.5 Assessment and Plan: Mammo, annual screening, unremarkable. I have reviewed films and agree. A/P: Dania returns in followup. In regards to her breast cancer, she is doing well. Labs are as above and unremarkable with the exception of a minimally elevated ALT of 32. She is doing well in regards to her overall health as well. Followup will be scheduled in Oncology in about one year. I had scheduled a DEXA scan but Dania checked with her PCP who noted that she had had a DEXA in 2007 and had not recommended a followup at this point in time. I will leave thus further followup of this to her primary care physician as well. Routine followup will be scheduled in Oncology in about one year. In regards to her breast cancer, she is overall doing well. documented in this encounter Plan of Treatment Upcoming Encounters Date Type Specialty Care Team Description 10/27/2022 Appointment Radiology Carie Sands , HEARING AID TECHNICIAN [address] [place], [place] [address] (Wo rk) 10/27/2022 Appointment Radiology Carie Sands HEARING AID TECHNICIAN [address] [place], [place] [address] (Wo rk) documented as of this encounter Procedures Procedure Name Priority Date/Time Associated Diagnosis Comme nts HEMOGRAM STAT 10/23/2014 3:00 Infiltrating ductal Resul ts for this PM EST carcinoma of breast, procedu re are in unspecified the results laterality section. GERD (gastroesophageal reflux disease) Hot flashes Vertigo DIFFERENTIAL, STAT 10/23/2014 3:00 Infiltrating ductal Resu lts for this AUTOMATED PM EST carcinoma of breast, procedu re are in unspecified the results laterality section. GERD (gastroesophageal reflux disease) Hot flashes Vertigo CBC (WITH DIFF) STAT 10/23/2014 3:00 Infiltrating ductal PM EST carcinoma of breast, unspecified laterality GERD (gastroesophageal reflux disease) Hot flashes Vertigo COMPREHENSIVE STAT 10/23/2014 3:00 Infiltrating ductal Resu lts for this METABOLIC PANEL PM EST carcinoma of breast, proc edure are in (NON-FASTING) unspecified the results laterality section. GERD (gastroesophageal reflux disease) Hot flashes Vertigo documented in this encounter Results Differential, Automated (10/23/2014 3:00 PM EST) P athologist Signature Neutrophils % 55.1 % CERNER MILLENNIUM Neutr Abs (ANC) 4.52 1.50 - CERNER 6.30 MILLENNIUM x10(3)/mcL Lymphocytes % 35.5 % CERNER MILLENNIUM Lymphocytes Abs 2.9 1.0 - 3.6 CERNER x10(3)/mcL MILLENNIUM Monocytes % 7.2 % CERNER MILLENNIUM Monocyte Abs 0.6 0.2 - 1.0 CERNER x10(3)/mcL MILLENNIUM Eosinophils % 1.9 % CERNER MILLENNIUM Eosinophils Abs 0.2 0.0 - 0.5 CERNER x10(3)/mcL MILLENNIUM Basophils % 0.2 % CERNER MILLENNIUM Basophils Abs 0.0 0.0 - 0.2 CERNER x10(3)/mcL MILLENNIUM Immature Gran % 0.10 % CERNER MILLENNIUM Comment: Immature granulocytes(IG's)percentage an d absolute count will include metamyelocytes, myelocytes, and promyelo cytes. Blood smears from CBCs yielding IG's will be scanned manually for concor dance. If this scan disagrees with the automated IG or if promyelocytes are not ed, a manual differential will be performed. Ludivina Gran Abs 0.01 0.00 - 0.05 x10(3)/mcL CER NER MILLENNIUM Specimen Anatomical Collection Method Collection Time Receive d Time (Source) Location / / Volume Laterality Blood specimen 10/23/2014 3:00 PM 014 3:04 (specimen) EST PM EST Resulting Agency Comment Spec In Lab Curtis Hung MD HEMATOLOGY ORDERABLES Performing Organization Address City/State/ZIP Code Phon e Number [place] [phone] CERNER MILLENNIUM (ABNORMAL) Hemogram (10/23/2014 3:00 PM EST) P athologist Signature WBC 8.2 4.0 - 10.0 CERNER x10(3)/mcL MILLENNIUM RBC 3.99 3.93 - CERNER 5.22 MILLENNIUM x10(6)/mcL Hemoglobin 13.1 11.2 - CERNER 15.7 gm/dL MILLENNIUM Hematocrit 37.9 34.0 - CERNER 45.0 % MILLENNIUM MCV 95.0 (H) 79.0 - CERNER 94.0 fL MILLENNIUM MCH 32.8 (H) 26.6 - CERNER 32.2 pg MILLENNIUM MCHC 34.6 32.0 - CERNER 36.5 gm/dL MILLENNIUM Platelets 221 145 - 370 CERNER x10(3)/mcL MILLENNIUM RDWSD 41.9 35.0 - CERNER 46.0 fL MILLENNIUM RDWCV 12.3 10.9 - CERNER 14.4 % MILLENNIUM MPV 9.8 9.0 - 12.0 CERNER fL MILLENNIUM Specimen Anatomical Collection Method Collection Time Receive d Time (Source) Location / / Volume Laterality Blood specimen 10/23/2014 3:00 PM 014 3:04 (specimen) EST PM EST Resulting Agency Comment Spec In Lab Curtis Hung MD HEMATOLOGY ORDERABLES Performing Organization Address City/State/ZIP Code Phon e Number [place] [phone] CERNER MILLENNIUM (ABNORMAL) Comprehensive metabolic panel (non-fasting) (10/23/2014 3:00 PM EST) P athologist Signature Glucose Lvl 103 60 - 199 CERNER mg/dL MILLENNIUM Comment: Diabetes: >=200 mg/dL plus symp toms BUN 12 8 - 18 mg/dL CERNER MILLENNIUM Creatinine 0.93 0.70 - 1.20 mg/dL CERNER MILL ENNIUM Comment: Please note that the pediatric reference intervals supplied above were not validated at [facility]. Results from pediatri c patients should be interpreted in conjunction to the patient's age, height and muscle mass. Sodium 143 135 - 145 mmol/L CERNER BRINA NIUM Potassium 4.5 3.5 - 5.0 mmol/L CERNER BRINA NIUM Comment: Please note: ??Patients with WBC >100,00 0 may have falsely elevated Potassium levels. ??For accurate Potassium quantif ication in these patients send serum separator tube (gold top) for subsequent determinations. ??Contact the Clinical Chemistry Laboratory if there are any qu estions. Chloride 101 98 - 107 mmol/L CERNER MILLENN IUM CO2 31 22 - 31 mmol/L CERNER MILLENNI UM Anion Gap 11 5 - 15 mmol/L CERNER MILLENNIU M Calcium 10.5 8.5 - 10.5 mg/dL CERNER BRINA NIUM Total Protein 6.9 6.4 - 8.3 gm/dL CERNER MIL LENNIUM Albumin 4.4 3.2 - 5.2 gm/dL CERNER MILLENN IUM AST 27 0 - 30 unit/L CERNER MILLENNIU M ALT 32 (H) 0 - 30 unit/L CERNER MILLENNIU M Alk Phos 77 40 - 104 unit/L CERNER MILLENN IUM Total Bilirubin 0.5 0.2 - 1.3 mg/dL CERNER M ILLENNIUM Bili, Direct 0.1 0.0 - 0.3 mg/dL CERNER MILL ENNIUM Estimated GFR >60 >=60 CERNER MILLENNIU M Comment: This estimated GFR (eGFR) value was calc ulated using the MDRD equation which has been validated on patients between t he ages of 18 and 70. The MDRD should not be used to assess kidney function in patients < 18 years of age or in patients with extremes of body mass, or in patients with acute kidney failure. This value should be multiplied by 1.2 f or patients. For further information please copy and past e the following links into your internet browser. http://iGoOn s.r.l./DHnkdep http://iGoOn s.r.l./DHMCnkf Specimen Anatomical Collection Method Collection Time Receive d Time (Source) Location / / Volume Laterality Blood specimen 10/23/2014 3:00 PM 014 3:04 (specimen) EST PM EST Resulting Agency Comment Spec In Lab Curtis Hung MD CHEMISTRY ORDERABLES Performing Organization Address City/State/[place] [address] KURT KNAPPIUM documented in this encounter Visit Diagnoses Diagnosis Infiltrating ductal carcinoma of breast, unspecified laterality GERD (gastroesophageal reflux disease) Esophageal reflux Hot flashes Symptomatic menopausal or female climact iliana states Vertigo Dizziness and giddiness documented in this encounter Care Teams Melt House Supervisor Relationship Specialty Start Date End Date Ernie Morales MD PCP - General 10/13/10 08/02/21 documented as of this encounter
--- OUTSIDE RECORDS SUMMARY | 2022-10-08 00:48 | XMS_ITS | Encounter Summary ---
:1955 Author Organization [facility] [place] [address] Care Team Providers Name Role Phone Ernie Morales MD Primary Care Provider Reason for Visit Reason Comments Follow-up Encounter Details Date Type Department Care Team Description 05/13/2011 Hospital Encounter Hematology and Curtis Hung [facility] cancer Oncology at [facility] [place] [address] HEMATOLOGY/ONCOLOGY [phone] DEPT. [place], [place] [address] (Wo rk) Social History Tobacco Use Types Packs/Day Years Used Date Smoking Tobacco: Never Assessed Sex Assigned at Date Recorded Female 07/09/2021 3:12 PM EDT documented as of this encounter Last Filed Vital Signs Vital Sign Reading Time Taken Comments Blood Pressure 115/73 05/13/2011 2:05 PM EDT Pulse 65 05/13/2011 2:05 PM EDT Temperature 36.7 ??C (98.1 ??F) 05/13/2011 2:05 PM EDT Respiratory Rate 18 05/13/2011 2:05 PM EDT Oxygen Saturation 96% 05/13/2011 2:05 PM EDT Inhaled Oxygen Concentration - - Weight 72.7 kg (160 lb 4.4 oz) 05/13/2011 2:05 PM EDT Height 160 cm (5' 2.99) 05/13/2011 2:05 PM EDT Body Mass Index 28.4 05/13/2011 2:05 PM EDT documented in this encounter Medications at Time of Discharge Medication Sig Dispensed Refills Start Date End Date CIS Free Text Med - 0 05/18/2010 malian tincture CIS Free Text Med - Fish 0 05/18/2010 Yet-Riepj9-Yct E-Flax Oil PARoxetine (PAXIL) 10 mg 20 MG = 2 0 05/18/2010 tablet Tablet(s), PO, q HS cholecalciferol, Vitamin Take 2,000 Units by 0 06/16/2011 D3, 400 unit tablet mouth daily. multivitamin with minerals Take 1 tablet by 0 06/11/2011 (THERA-M) 9-0.4 mg tablet mouth daily. fexofenadine (ANDREINA) 60 Take 180 mg by 0 201006/16/2011 mg tablet mouth nightly. ECHINACEA ORAL Take 60 mg by mouth 0 05/12/2011 0 06/16/2011 as needed. CIS Free Text Med - 0 05/18/201006/11 Spectra 405-R CYANOCOBALAMIN, VITAMIN 0 05/18/2010 0 06/11/2011 B-12, (VITAMIN B-12 ORAL) documented as of this encounter Progress Notes Curtis Hung MD - 05/18/2011 11:36 AM EDTEncounter addended by: Curtis Hung MD on: 05/18/2011 11:36 AM
Documentation filed: Inpatient Notes Curtis Hung MD - 05/13/2011 2:52 PM EDT Subjective: Patient ID: Mariama Adams is a 55 y.o. female, who returns in followup for treatment and managementof her breast cancer, and other medical problems. HPI Problem List: 1. Infiltrating ductal carcinoma, right breast, August 1997. a. 5-mm cancer, 0/9 lymph nodes involved with tumor. c. s/p right modified radical mastectomy. 1. s/p tram reconstruction. 2. s/p left reduction mammoplasty. d. 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 2. Left paraovarian cyst. a. Status post laparoscopic resection, March 1999. 3. Intermittent episodes of vertigo. 4. History of thyroiditis in the distant past. 5. H/O GERD. 6. H/O mild hypercalcemia. 7. Longstanding h/o hot flashes. a. Marked improvement in past with effexor. b. Ongoing rx with paxil. 1. Trial of increased dose, 20 mg qhs, 04/30. Mariama returns for followup. She clinically in regards to her breast cancer has been doing well over the last year. She had some very minor residual symptoms from her shingles that occurred last year. She has had a history of ocular migraines in the past but these have been minimally bothersome for a few years. This spring, however, she had a period of time where she was having fairly regular episodes. She had thought it was related to possible seasonal allergies that were bothering her at the time. Her primary care physician began her on a course of therapy with Andreina and this was very helpful. They have totally resolved. The only other issue that she developed recurrence of was GI reflux symptomatology this past spring. She was begun on therapy with Prilosec about 4 to 6 weeks. This helps moderately; however, she is still awakening fairly regularly at night due to reflux symptoms. She was seen by Dr. Berman and underwent endoscopy and some sort of endoscopic investigational therapeutic regimen for reflux at that time. She is scheduled for followup with Dr. Berman but not until October. Review of Systems Except as noted above, Mariama Pacheco full remaining review of systems, including constitutional, cardiac, pulmonary, GI, , neurologic, musculskeletal, and remaining, is otherwise fully unremarkable. Objective: Physical Exam Objective: Mariama Adams is well appearing and in no acute distress. HEENT: Unremarkable. Musculoskeletal Exam: Within normal limits. Back without CVA or spinal tenderness to percussion or palpation.Chest: Clear. Nodes: No peripheral adenopathy is present. Breast Exam: Unchanged from prior exam, s/p right MRM and recon. Cor: RRR, S1, S2. No murmur, rub, or S3 present. Abdomen: Bowel sounds unremarkable, soft, nontender with no palpable HSM or other abnormalities. Extremities without significant cyanosis, clubbing, or edema. Neurologic Exam: Grossly nonfocal, cranial nerve's III - XII unremarkable, DTR's symmetric throughout. Assessment and Plan: No problem-specific visit notes found for this encounter. Labs per flow sheet remarkable for calcium 10.9 get back with radiology, mammo, annual screenings today I have reviewed films and my preliminary reveals no significant findings. A/P: Overall Mariama is doing well with no signs or symptoms suggestive of recurrent disease but she is currently on Paxil 10 mg p.o. q.h.s. for ongoing hot flashes this is moderately helpful. She can titrate this slightly upwards if necessary for flares of her hot flashes but has not done this in some time. She is a bit concerned about her recurrent reflux symptomatology and I will speak with Dr. Berman to see if he might be able to see her sooner for this. I will recommend proceeding with a followup PTH level at the time I see her back in Oncology in one year. documented in this encounter Plan of Treatment Upcoming Encounters Date Type Specialty Care Team Description 10/27/2022 Appointment Radiology Carie Sands APRN [address] [place], [place] [address] (Wo rk) 10/27/2022 Appointment Radiology Carie Sands APRN [address] [place], [place] [address] (Wo rk) documented as of this encounter Procedures Procedure Name Priority Date/Time Associated Comments Diagnosis DIFFERENTIAL, STAT 05/13/2011 12:52 Results fo r this AUTOMATED PM EDT procedure are i n the results section. CBC (WITH DIFF) STAT 05/13/2011 12:52 Breast cancer Results for this PM EDT procedure are i n the results section. COMPREHENSIVE STAT 05/13/2011 12:52 Breast cancer Results f or this METABOLIC PANEL PM EDT procedure ar e in (NON-FASTING) the results section. documented in this encounter Results REFLEX LAB-A-DIFF (05/13/2011 12:52 PM EDT) P athologist Signature Neutrophils % 55.9 34.0 - CERNER 71.0 % MILLENNIUM Neutr Abs (ANC) 3.90 1.50 - CERNER 6.30 MILLENNIUM x10(3)/mcL Lymphocytes % 34.3 19.0 - CERNER 53.0 % MILLENNIUM Lymphocytes Abs 2.4 1.0 - 3.6 CERNER x10(3)/mcL MILLENNIUM Monocytes % 6.9 4.0 - 13.0 CERNER % MILLENNIUM Monocyte Abs 0.5 0.2 - 1.0 CERNER x10(3)/mcL MILLENNIUM Eosinophils % 2.2 0.0 - 7.0 CERNER % MILLENNIUM Eosinophils Abs 0.2 0.0 - 0.5 CERNER x10(3)/mcL MILLENNIUM Basophils % 0.6 0.0 - 2.0 CERNER % MILLENNIUM Basophils Abs 0.0 0.0 - 0.2 CERNER x10(3)/mcL MILLENNIUM Immature Gran % 0.10 0.00 - CERNER 0.66 % MILLENNIUM Comment: [...] Location / / Volume Laterality Blood specimen 05/13/2011 12:52 1 1:03 (specimen) PM EDT PM EDT Curtis Hung MD HEMATOLOGY ORDERABLES Performing Organization Address City/State/[place] [address] CERNER MILLENNIUM (ABNORMAL) Comprehensive metabolic panel (CMP) (05/13/2011 12:52 PM EDT) athologist Signature Glucose Lvl 86 60 - 199 CERNER mg/dL MILLENNIUM Comment: Diabetes: >=200 mg/dL plus symp toms BUN 12 8 - 18 mg/dL CERNER MILLENNIUM Creatinine 0.86 0.70 - 1.20 mg/dL CERNER MILL ENNIUM Sodium 141 135 - 145 mmol/L CERNER BRINA NIUM Potassium 3.6 3.5 - 5.0 mmol/L CERNER BRINA NIUM Comment: Please note: ??Patients with WBC >100,00 0 may have falsely elevated Potassium levels. ??For accurate Potassium quantif ication in these patients send serum separator tube (gold top) for subsequent determinations. ??Contact the Clinical Chemistry Laboratory if there are any qu estions. Chloride 103 98 - 107 mmol/L CERNER MILLENN IUM CO2 30 22 - 31 mmol/L CERNER MILLENNI UM Anion Gap 8 5 - 15 mmol/L CERNER MILLENNIU M Calcium 10.9 (H) 8.5 - 10.5 mg/dL CERNER BRINA NIUM Total Protein 7.4 6.4 - 8.3 gm/dL CERNER MIL LENNIUM Albumin 4.3 3.2 - 5.2 gm/dL CERNER MILLENN IUM AST 21 0 - 30 unit/L CERNER MILLENNIU M ALT 23 0 - 30 unit/L CERNER MILLENNIU M Alk Phos 79 40 - 104 unit/L CERNER MILLENN IUM [...] week). For patient s multiply eGFR by 1.2.MDRD equation has not been validated for pediatric pat ients and is only valid for patients with age >= 18 years. At present, NKDEP does NOT recommend usi [...] kidney disease. References: http://nkdep.nih.gov/resources/NKDEP_Sug gestn4Labs_0606_508.pdf http://www.kidney.org/professionals/kls/ pdf/faq_gfr.pdf Specimen Anatomical Collection Method Collection Time Receive d Time (Source) Location / / Volume Laterality Blood specimen 05/13/2011 12:52 1 1:03 (specimen) PM EDT PM EDT Curtis Hung MD CHEMISTRY ORDERABLES Performing Organization Address City/[facility] [place] [address] CERNER MILLENNIUM CBC (with Diff) (05/13/2011 12:52 PM EDT) P athologist Signature WBC 7.0 4.0 - 10.0 CERNER x10(3)/mcL MILLENNIUM RBC 4.23 3.93 - 5.22 CERNER x10(6)/mcL MILLENNIUM Hemoglobin 13.2 11.2 - 15.7 CERNER gm/dL MILLENNIUM Hematocrit 38.8 34.0 - 45.0 CERNER % MILLENNIUM MCV 91.7 79.0 - 94.0 CERNER fL MILLENNIUM MCH 31.2 26.6 - 32.2 CERNER pg MILLENNIUM MCHC 34.0 32.0 - 36.5 CERNER gm/dL MILLENNIUM Platelets 208 145 - 370 CERNER x10(3)/mcL MILLENNIUM RDWSD 39.8 35.0 - 46.0 CERNER fL MILLENNIUM RDWCV 11.8 10.9 - 14.4 CERNER % MILLENNIUM MPV 9.6 9.0 - 12.0 CERNER fL MILLENNIUM Specimen Anatomical Collection Method Collection Time Receive d Time (Source) Location / / Volume Laterality Blood specimen 05/13/2011 12:52 1 1:03 (specimen) PM EDT PM EDT Curtis Hung MD HEMATOLOGY ORDERABLES Performing Organization Address City/State/[place] [address] [facility] documented in this encounter Visit Diagnoses Diagnosis Breast cancer Malignant neoplasm of breast (female), u nspecified site documented in this encounter Care Teams Wig Maker Relationship Specialty Start Date End Date Ernie Morales MD PCP - General 10/13/10 08/02/21 documented as of this encounter
--- OUTSIDE RECORDS SUMMARY | 2022-10-08 00:48 | XMS_ITS | Encounter Summary ---
:1955 Author Organization [facility] [place] [address] Care Team Providers Name Role Phone Ernie Morales MD Primary Care Provider Encounter Details Date Type Department Care Team Description 10/23/2014 Hospital Encounter Hematology and Oncology CLINIC, DR ROTHMAN at [facility] Curtis Hung MD [facility] HEMATOLOGY/[place] [address] [place] [address] Social History Tobacco Use Types Packs/Day [...] CIS Free Text Med - 0 05/18/2010 slovak tincture CIS Free Text Med - Fish 0 05/18/2010 Pde-Kpbmf5-Kun E-Flax Oil PARoxetine (PAXIL) 10 mg 20 [...] Description 10/27/2022 Appointment Radiology Carie Sands , SAFETY RELIEF VALVE TECHNICIAN [address] [place], [place] [address] (Wo rk) 10/27/2022 Appointment Radiology Carie Sands SAFETY RELIEF VALVE TECHNICIAN [address] [place], [place] [address] (Wo rk) documented as of this encounter Visit Diagnoses Not on filedocumented in this encounter Care Teams Sales Representative Jewelry Relationship Specialty Start Date End Date Ernie Morales MD PCP - General 10/13/10 08/02/21 documented as of this encounter
--- OUTSIDE RECORDS SUMMARY | 2022-10-08 00:48 | XMS_ITS | Encounter Summary ---
:1955 Author Organization [facility] [place] [address] Care Team Providers Name Role Phone Ernie Morales MD Primary Care Provider Encounter Details Date Type Department Care Team Description 09/20/2013 Orders Only Hematology and Curtis Hung, Sundar c jenae (Primary Oncology at [facility] MD Dx) [facility] [place] [address] HEMATOLOGY/ONCOLOG [phone] Y DEPT. [place], [place] [address] Social History Tobacco Use Types [...] 10/27/2022 Appointment Radiology Carie Sands APRN [address] [place], [place] [address] (Wo rk) 10/27/2022 Appointment Radiology Carie Sands SCALP SPECIALIST [address] [place], [place] [address] (Wo rk) documented as of this encounter Visit Diagnoses Diagnosis Breast cancer - Primary Malignant neoplasm of breast (female), u nspecified site documented in this encounter Care Teams Single Needle Tufting Machine Operator Relationship Specialty Start Date End Date Ernie Morales MD PCP - General 10/13/10 08/02/21 documented as of this encounter
--- OUTSIDE RECORDS SUMMARY | 2022-10-08 00:48 | XMS_ITS | Encounter Summary ---
:1955 Author Organization [place] [address] Care Team Providers Name Role Phone Ernie Morales MD Primary Care Provider Encounter Details Date Type Department Care Team Description 05/12/2016 Hospital Encounter Hematology and Infiltr ating ductal Oncology at [facility] carcinoma of breast, [place] [address] Social History Tobacco Use Types Packs/Day [...] CIS Free Text Med - 0 05/18/2010 faroese tincture CIS Free Text Med - Fish 0 05/18/2010 Dqe-[id number]-Qdc E-Flax Oil PARoxetine (PAXIL) 10 mg 20 MG = 2 0 05/18/2010 tablet Tablet(s), PO, q HS levothyroxine (SYNTHROID) Take 25 mcg by 0 05/10/2018 25 mcg TabletIndications: mouth daily. Infiltrating ductal carcinoma of breast, unspecified laterality propranolol (INDERAL) 20 Take 20 mg by mouth 0 05/10/2018 mg TabletIndications: 3 times daily. Infiltrating ductal carcinoma of breast, unspecified laterality, GERD (gastroesophageal reflux disease), Hot flashes, Vertigo documented as of this encounter Plan of Treatment Upcoming Encounters Date Type Specialty Care Team Description 10/27/2022 Appointment Radiology Carie Sands , PRINCIPAL JAVA SOFTWARE ENGINEER [address] [place], [place] [address] (Wo rk) 10/27/2022 Appointment Radiology Carie Sands , PRINCIPAL JAVA SOFTWARE ENGINEER 14 [facility] [place] [address] (Wo rk) documented as of this encounter Procedures Procedure Name Priority Date/Time Associated Diagnosis Comme nts HEMOGRAM Routine 05/12/2016 12:12 Infiltrating ductal Resu lts for this PM EDT carcinoma of breast, procedu re are in right the results section. DIFFERENTIAL, Routine 05/12/2016 12:12 Infiltrating ductal Res ults for this AUTOMATED PM EDT carcinoma of breast, procedu re are in right the results section. CBC (WITH DIFF) Routine 05/12/2016 12:12 Infiltrating ductal PM EDT carcinoma of breast, right COMPREHENSIVE Routine 05/12/2016 12:12 Infiltrating ductal Res ults for this METABOLIC PANEL PM EDT carcinoma of breast, proc edure are in (NON-FASTING) right the results section. documented in this encounter Results Differential, Automated (05/12/2016 12:12 PM EDT) P athologist Signature Neutrophils % 56.7 % [facility] Neutr Abs (ANC) 3.79 1.50 - [facility] 6.30 [facility] x10(3)/[facility] LABORATORY Lymphocytes % 34.2 % [facility] Lymphocytes Abs 2.3 1.0 - 3.6 [facility] x10(3)/[facility] LABORATORY Monocytes % 6.4 % [facility] Monocyte Abs 0.4 0.2 - 1.0 [facility] x10(3)/[facility] LABORATORY Eosinophils % 1.8 % [facility] Eosinophils Abs 0.1 0.0 - 0.5 [facility] x10(3)/[facility] LABORATORY Basophils % 0.6 % [facility] Basophils Abs 0.0 0.0 - 0.2 [facility] x10(3)/[facility] LABORATORY Immature Gran % 0.30 % [facility] Comment: Immature granulocytes(IG's)percentage an d absolute count will include metamyelocytes, myelocytes, and promyelo cytes. Blood smears from CBCs yielding IG's will be scanned manually for concor dance. If this scan disagrees with the automated IG or if promyelocytes are not ed, a manual differential will be performed. Ludivina Gran Abs 0.02 0.00 - 0.05 x10(3)/[facility] Specimen Anatomical Collection Method Collection Time Receive d Time (Source) Location / / Volume Laterality Blood specimen 05/12/2016 12:12 6 (specimen) PM EDT 12:26 PM EDT Resulting Agency Comment Spec In Lab Curtis Hung MD HEMATOLOGY ORDERABLES Performing Organization Address City/State/ZIP Code Phon e Number [place] [id number]OSP[address] LAB[address]ORY [address] Hemogram (05/12/2016 12:12 PM EDT) P athologist Signature WBC 6.7 4.0 - 10.0 [facility] x10(3)/[facility] LABORATORY RBC 4.13 3.93 - 5.22 [facility] LAB[facility]ATORY Hemoglobin 12.9 11.2 - 15.7 [facility]ORY Hematocrit 38.7 34.0 - 45.0 [facility] LABORATORY MCV 93.7 79.0 - 94.0 [facility] LABORATORY MCH 31.2 26.6 - 32.2 [facility] LABORATORY MCHC 33.3 32.0 - 36.5 [facility] g[facility]dL [facility]ORY Platelets 201 145 - 370 [facility] x10(3)/[facility] LABORATORY RDWSD 42.2 35.0 - 46.0 [facility] RDWCV 12.4 10.9 - 14.4 [facility] LABORATORY MPV 9.7 9.0 - 12.0 [facility] LABORATORY Specimen Anatomical Collection Method Collection Time Receive d Time (Source) Location / / Volume Laterality Blood specimen 05/12/2016 12:12 6 (specimen) PM EDT 12:26 PM EDT Resulting Agency Comment Spec In Lab Curtis Hung MD HEMATOLOGY ORDERABLES Performing Organization Address City/State/[place] [address] Comprehensive metabolic panel (non-fasting) (05/12/2016 12:12 PM EDT) athologist Signature Glucose Lvl 98 65 - 199 [facility] mg/dL [facility]ORY Comment: Diabetes: >=200 mg/dL plus symp toms BUN 14 8 - 18 mg/dL [facility] Creatinine 0.93 0.70 - 1.20 mg/dL [facility] Comment: Please note that the pediatric reference intervals supplied above were not validated at [facility]. Results from pediatri c patients should be interpreted in conjunction to the patient's age, height and muscle mass. Sodium 140 135 - 145 mmol/L [facility] Potassium 4.3 3.5 - 5.0 mmol/L [facility] Comment: Please note: ??Patients with WBC >100,00 0 may have falsely elevated Potassium levels. ??For accurate Potassium quantif ication in these patients send serum separator tube (gold top) for subsequent determinations. ??Contact the Clinical Chemistry Laboratory if there are any qu estions. Chloride 101 98 - 107 mmol/L [facility] CO2 25 22 - 31 mmol/L [facility] Anion Gap 14 5 - 15 mmol/L [facility] Calcium 10.2 8.5 - 10.5 mg/dL [facility] Total Protein 7.3 6.1 - 8.0 gm/dL [facility] Albumin 4.3 3.2 - 5.2 gm/dL [facility] AST 25 0 - 30 unit/L [facility] ALT 25 0 - 30 unit/L [facility] Alk Phos 79 40 - 104 unit/L [facility] Total Bilirubin 0.4 0.2 - 1.3 mg/dL [facility] Bili, Direct 0.1 0.0 - 0.3 mg/dL [facility] Estimated GFR >60 >=60 [facility] Comment: This estimated GFR (eGFR) value was [...] the following links into your internet browser. [email or web address] [email or web address]/DHMCnkf Specimen Anatomical Collection Method Collection Time Receive d Time (Source) Location / / Volume Laterality Blood specimen 05/12/2016 12:12 6 (specimen) PM EDT 12:26 PM EDT Resulting Agency Comment Spec In Lab Curtis Hung MD CHEMISTRY ORDERABLES Performing Organization Address City/State/[place] [address] documented in this encounter Visit Diagnoses Diagnosis Infiltrating ductal carcinoma of breast, right documented in this encounter Care Teams Spooling Machine Operator Relationship Specialty Start Date End Date Ernie Morales MD PCP - General 10/13/10 08/02/21 documented as of this encounter
--- OUTSIDE RECORDS SUMMARY | 2022-10-08 00:48 | XMS_ITS | Encounter Summary ---
:1955 Author Organization [facility] Address [facility] [place] [address] Care Team Providers Name Role Phone Ernie Morales MD Primary Care Provider Encounter Details Date Type Department Care Team Description 06/27/2012 Orders Only Hematology and Curtis Hung Malignan t neoplasm of Oncology at [facility] breast (female), [facility] uns pecified site Drive (Primary Dx) [place] [address] HEMATOLOGY/ONCOLOG [phone] Y DEPT. [place], [place] [address] Social History Tobacco Use Types [...] 10/27/2022 Appointment Radiology Carie Sands APRN [address] [place], [place] [address] (Rosalie rk) 10/27/2022 Appointment Radiology Carie Sands APRN [address] [place], [place] [address] (Wo rk) documented as of this encounter Results Comprehensive metabolic panel (non-fasting) (08/30/2012 8:15 AM EDT) athologist Signature Glucose Lvl 83 60 - 199 [facility] mg/dL [facility] Comment: Diabetes: >=200 mg/dL plus symp toms BUN 12 8 - 18 mg/dL [facility] Creatinine 0.92 0.70 - 1.20 mg/dL [facility] Comment: Please note that the pediatric reference intervals supplied above were not validated at [facility]. Results from pediatri c patients [...] Organization Address City/State/[place] [address] [facility] CBC (with Diff) (08/30/2012 8:15 AM EDT) [...] Organization Address City/State/[place] [address] CERNER MILLENNIUM documented in this encounter Visit Diagnoses Diagnosis Malignant neoplasm of breast (female), u nspecified site - Primary documented in this encounter Care Teams Supplier Quality Relationship Specialty Start Date End Date Ernie Morales MD PCP - General 10/13/10 08/02/21 documented as of this encounter
--- OUTSIDE RECORDS SUMMARY | 2022-10-08 00:48 | XMS_ITS | Encounter Summary ---
:1955 Author Organization [facility] [place] [address] Care Team Providers Name Role Phone Ernie Morales MD Primary Care Provider Encounter Details Date Type Department Care Team Description 05/13/2011 Hospital Encounter Laboratory CLINIC, [facility] Curtis Hung MD [facility] HEMATOLOGY/[place] [address] [place] [address] Social History Tobacco Use Types Packs/Day Years Used Date Smoking Tobacco: Never Assessed Sex Assigned at Date Recorded Female 07/09/2021 3:12 PM EDT documented as of this encounter Medications at Time of Discharge Medication Sig Dispensed Refills Start Date End Date CIS Free Text Med - 0 05/18/2010 welsh tincture CIS Free Text Med - Fish 0 05/18/2010 Iaq-Ctuhm0-Qqg E-Flax Oil PARoxetine (PAXIL) 10 mg 20 [...] B-12 ORAL) documented as of this encounter Plan of Treatment Upcoming Encounters Date Type Specialty Care Team Description 10/27/2022 Appointment Radiology Carie Sands OPERATIONS VICE PRESIDENT [address] [place], [place] [address] (Wo rk) 10/27/2022 Appointment Radiology Carie Sands APRN [address] [place], [place] [address] (Wo rk) documented as of this encounter Visit Diagnoses Not on filedocumented in this encounter Care Teams Fisher Seal Relationship Specialty Start Date End Date Ernie Morales MD PCP - General 10/13/10 08/02/21 documented as of this encounter
--- OUTSIDE RECORDS SUMMARY | 2022-10-08 00:48 | XMS_ITS | Encounter Summary ---
:1955 Author Organization [facility] [place] [address] Care Team Providers Name Role Phone Ernie Morales MD Primary Care Provider Encounter Details Date Type Department Care Team Description 06/16/2011 Hospital Gastroenterology at [facility] Cullen, GERD Encounter [facility] Medhat Cali MD ([place] [address] [place] [address] reflux disease) [phone] [facility] [address] Social History Tobacco Use Types Packs/Day Years [...] - 06/16/2011 8:45 AM EDT Please call [phone], before 5pm with problems, questions or concerns, after 5pm call the Hospital at [phone] and ask to speak to the Business Intelligence Architect resolution agent and the single pass soil stabilizer operator will contact that person for you. Discharge instructions reviewed with patient who expresses understanding. Patient InstructionsTerrence Berman MD - 06/16/2011 8:31 AM EDT Please see Recommendations in the Provation procedure report which is documented in the procedural note in E-DH. AttachmentsThe following attachments cannot be sent through Care Everywhere. UPPER GI ENDOSCOPY: WHAT TO EXPECT AT HOME (SALVADOREAN)documented in this encounter Medications at Time of Discharge Medication Sig Dispensed Refills Start Date End Date multivitamin (THERAGRAN) Take 1 tablet by 0 tablet mouth daily. aspirin 81 mg EC tablet Take 81 mg by mouth 0 three times a week. CIS Free Text Med - cypriot 0 05/18/20 10 tincture CIS Free Text Med - Fish 0 05/18/2010 Xpz-Jkeww8-Vhb E-Flax Oil PARoxetine (PAXIL) 10 mg 20 [...] Berman MD - 06/16/2011 8:30 AM EDT [facility] Operative Note Patient Name: Dania Adams : [id number] MR#: [id number] Case Date: 06/16/2011 Surgeon: Surgeon(s) and Role: [...] 10/27/2022 Appointment Radiology Carie Sands APRN [address] [place], [place] [address] (Wo rk) 10/27/2022 Appointment Radiology Carie Sands APRN [address] [place], [place] [address] (Wo rk) documented as [...] SURGICAL PATHOLOGY REPORT (06/16/2011 10:41 AM EDT) [facility] Method Time Signature Surgical CERNER Pathology ? [facility] Report ? Provider: ?? TERRENCE BERMAN ??Pt. Name: ?? SEBASTIEN Nehemias, DANIA Arce ?I ? Acc #: ?[id number] ?Pt. MRN: ?[id number] ? Col Date: ?? 1 ? /Sex: [...] Organization Address City/State/[place] [address] [facility] UPPER GI ENDOSCOPY (06/16/2011 7:44 AM EDT) Component Value Ref Test Analysis Performed At [facility] gist Range Method Time Signature UPPER GI [facility] PROVATION ENDOSCOPY Endoscopy Patient Name: Dania Adams ? Procedure Date: 06/16/2011 07:44:05 AM ? N: [id number] ? Date of : 1955 ? Age: 55 ? Procedure: ? Upper GI endoscopy Indications: ? Follow-up of gastro-esophageal refl ux ? disease Providers: ? Terrence Berman MD, Andressa ? Myriam, EMANUEL, Gabe Jacques, ? After School Program Director Referring MD: ?Ernie Morales MD Medicines: ? Midazolam 4 [...] reactions. The ? [facility] ? and advanced to the. The [...] Diagnosis GERD (gastroesophageal reflux disease) Esophageal reflux documented in this encounter Administered Medications Inactive Administered Medications - up to 3 most recent administrations Medication Order MAR Action Action Date Dose Rate Site sodium chloride 0.9% New Bag 06/16/2011 7:45 AM EDT 100 mL/hr 100 mL/hr infusion 100 mL/hr, Intravenous, CONTINUOUS, Starting on Tue06/16/11 [...] benzocaine (HURRICANE) 20 % oral spray (CANCELED) 0808 (New Bag - Provider: Andressa Miguel, EMANUEL - Comment: 3 sprays orallly) CONTINUOUS PRN, Pain, Starting Tue06/16/11 at 0808, Intra-operat yamileth fentaNYL 50mcg/mL injection (COMPLETED) 807 (Given - Provider: Andressa Miguel, RN) ONCE PRN, 1 dose, Starting on Tue 1 at 0808, Until Tue06/16/11 at 0808, Pain, Intra-Operative (Intra-Procedure), Routine fentaNYL 50mcg/mL injection (COMPLETED) 812 (Given - Provider: Andressa Miguel RN) Intravenous, ONCE PRN, 1 dose, Starting on Tue06/16/11 at 0813, Until Tue06/16/11 at 08, Pain, Intra-Operative (Intra-Procedure), Routine fentaNYL 50mcg/mL injection [...] Tue06/16/11 at 0822, Sleep, Intra-Operative (Intra-Procedure), Routine documented in this encounter Care Teams Fabric Pattern Grader Relationship Specialty Start Date End Date Ernie Morales MD PCP - General 10/13/10 08/02/21 documented as of this encounter
--- OUTSIDE RECORDS SUMMARY | 2022-10-08 00:48 | XMS_ITS | Encounter Summary ---
:1955 Author Organization [place] [address] Care Team Providers Name Role Phone Ernie Morales MD Primary Care Provider Reason for Visit Reason Comments Follow-up Encounter Details Date Type Department Care Team Description 05/18/2017 Office Visit Hematology and Curtis Hung ductal carcinoma of breast, right; Oncology at [facility] MD Carlos Hot flashes; [facility] Gastroeso phageal reflux disease, esophagitis presence not specified [facility] [address] [place] HEMATOLOGY/ONCOL [address] [facility] DEPT[address] [phone] [place] [address] Social History Tobacco Use Types Packs/Day Years Used Date Smoking Tobacco: Never Smokeless Tobacco: Never Alcohol Use Standard Drinks/Week Comments Not Asked 0.8 (1 standard drink = 0.6 oz pure alco hol) Sex Assigned at Date Recorded Female 07/09/2021 3:12 PM EDT documented as of this encounter Last Filed Vital Signs Vital Sign Reading Time Taken Comments Blood Pressure 111/62 05/18/2017 10:07 AM EDT Pulse 52 05/18/2017 10:07 AM EDT Temperature 37.3 ??C (99.1 ??F) 05/18/2017 10:07 AM EDT Respiratory Rate 18 05/18/2017 10:07 AM EDT Oxygen Saturation 97% 05/18/2017 10:07 AM EDT Inhaled Oxygen Concentration - - Weight 80 kg (176 lb 6.4 oz) 05/18/2017 10:07 AM EDT Height 159.2 cm (5' 2.68) 05/18/2017 10:07 AM EDT Body Mass Index 31.57 05/18/2017 10:07 AM EDT documented in this encounter Progress Notes Curtis Hung MD - 05/18/2017 10:30 AM EDT Subjective: Patient ID: Dania Adams is a 61 y.o. female, who returns in followup for [...] qhs, 04/30. HPI Dania returns in followup. She in regard to her health has done well over the last year. She has had no significant breast complaints. She has had no signs or symptoms suggestive of recurrent or metastatic disease. She is overall physically feeling well. Her unfortunately has been developing for a couple of years now slowly progressive dementia and is having increasing difficulties with his memory. He is actually being seen in Neurology by a memory specialist later today for further evaluation. He has been from what she describes somewhat slowly declining, but this is increasingly certainly somewhat of a stress. She retired, however, from work about 6 months ago which has been helpful. Review of Systems Except as noted above, Dania Pacheco full remaining review of systems, including constitutional, cardiac, pulmonary, GI, , neurologic, musculskeletal, and all remaining, is otherwise fully unremarkable. Current Outpatient Prescriptions on File Prior to Visit Medication Sig Dispense Refill ??? levothyroxine (SYNTHROID) 25 mcg Tablet Take 25 mcg by mouth daily. ??? propranolol (INDERAL) 20 mg Tablet Take 20 mg by mouth 3 times daily. ??? multivitamin (THERAGRAN) tablet Take 1 tablet by mouth daily. ??? aspirin 81 mg EC tablet Take 81 mg by mouth three times a week. ??? CIS Free Text Med - estonian tincture ??? CIS Free Text Med - Fish Jtz-Tjzbq0-Ipt E-Flax Oil ??? PARoxetine (PAXIL) 10 mg tablet 20 MG = 2 Tablet(s), PO, q HS No current facility-administered medications on file prior to visit. Objective: Physical Exam Vitals: 05/18/17 1007 BP: 111/62 Patient Position: Sitting Pulse: 52 Resp: 18 Temp: 37.3 ??C (99.1 ??F) TempSrc: Oral SpO2: 97% Weight: 80 kg (176 lb 6.4 oz) Height: 159.2 cm (5' 2.68) Objective: Dania Adams is well appearing and [...] - XII unremarkable, DTR's symmetric throughout. Recent Results (from the past 24 hour(s)) Comprehensive metabolic panel (non-fasting) Result Value Ref Range Glucose Lvl 96 65 - 199 mg/dL BUN 18 8 - 18 mg/dL Creatinine 0.94 0.70 - 1.20 mg/dL Sodium 144 135 - 145 mmol/L Potassium 4.0 3.5 - 5.0 mmol/L Chloride 103 98 - 107 mmol/L CO2 28 22 - 31 mmol/L Anion Gap 13 5 - 15 mmol/L Calcium 10.9 (H) 8.5 - 10.5 mg/dL Total Protein 7.8 6.1 - 8.0 gm/dL Albumin 4.3 3.2 - 5.2 gm/dL AST 19 0 - 30 unit/L ALT 25 0 - 30 unit/L Alk Phos 77 40 - 104 unit/L Total Bilirubin 0.4 0.2 - 1.3 mg/dL Bili, Direct 0.1 0.0 - 0.3 mg/dL Estimated GFR >60 >=60 No results for input(s): WBC, NEUTROABS, HGB, HCT, PLATELET in the last 7068 hours. Recent Labs 05/18/17 0910 AST 19 ALT 25 ALKPHOS 77 BILITOT 0.4 Assessment and Plan: Mammo, annual screening, unremarkable. No evidence of significant pathology, category 1. I have reviewed films and concur, I note there is some benign-appearing calcifications present. A/P: Dania returns in followup. Labs are as above, and as per flow sheet remarkable for minimally elevated calcium, which I would recommend following. At present, I am not concerned about this. It has been intermittently elevated in the past. Her liver function tests remain within normal limits. She is overall doing well in regards to her breast cancer. As I noted above, unfortunately her has been struggling with slowly progressive dementia-like picture and has been noticing increasing memory problems. This has certainly been somewhat of a challenge, although she seems to be coping as well as can be expected and overall well with this. Followup will be scheduled in about 1 year, at which time we will proceed with annual screening mammography, as well as a followup DEXA scan here at [facility]. Finally, Dania notes she is due for routine screening colonoscopy. She will talk to her PCP about this. She may or may not wish to proceed with this here at [facility] as well. documented in this encounter Plan of Treatment Upcoming Encounters Date Type Specialty Care Team Description 10/27/2022 Appointment Radiology Carie Sands , MANAGER INVESTMENT BANKING [address] [place], [place] [address] (Wo rk) 10/27/2022 Appointment Radiology Carie Sands , MANAGER INVESTMENT BANKING [address] [place], [place] [address] (Wo rk) documented as of this encounter Results DXA Central-Spine, Hip, And/Or [...] This is available through an interactive web-based interfa ce (http://www.shef.ac.uk/FRAX/) and can be used to [...] measurements an d plots are available in E- under the imaging tab. Paper copies will be sent to providers without E- access. If you have received this report without th e data sheet and do not have access to InMyRoom, please contact Radiology Transcrip tion at [phone] Tuesday thru Tuesday 8am-4pm. Narrative 05/26/2018 11:22 [...] This is available through an interactive web-based A Pooches Pleasurea ce (http://www.shef.ac.uk/FRAX/) and can be used to [...] measurements an d plots are available in ELightera under the imaging tab. Paper copies will be sent to providers without MerchantCircle access. If you have received this report without th e data sheet and do not have access to InMyRoom, please contact Radiology Transcrip tion at [phone] Tuesday thru Tuesday 8am-4pm. Curtis Hung MD IMG DEXA ORDERABLES documented in this encounter Visit Diagnoses Diagnosis Infiltrating ductal carcinoma of breast, right Hot flashes Symptomatic menopausal or female climact iliana states Gastroesophageal reflux disease, esophag itis presence not specified Infiltrating ductal carcinoma of breast, right Hot flashes Symptomatic menopausal or female climact iliana states Gastroesophageal reflux disease, esophag itis presence not specified documented in this encounter Care Teams Cantilever Crane Operator Relationship Specialty Start Date End Date Ernie Morales MD PCP - General 10/13/10 08/02/21 documented as of this encounter
--- OUTSIDE RECORDS SUMMARY | 2022-10-08 00:48 | XMS_ITS | Encounter Summary ---
:1955 Author Organization [facility] [place] [address] Care Team Providers Name Role Phone Ernie Morales MD Primary Care Provider Reason for Visit Reason Onset Date Comments Follow-up 03/23/2011 Encounter Details Date Type Department Care Team Description 03/23/2011 Telephone Hematology and Oncology at Curtis Lopez MD Follow-up [facility] her HEMATOLOGY/[place] [address] DEPT. [phone] [place], [place] [address] (Wo rk) Social History Tobacco Use Types Packs/Day Years Used Date Smoking Tobacco: Never Assessed Sex Assigned at Date Recorded Female 07/09/2021 3:12 PM EDT documented as of this encounter Miscellaneous Notes Telephone Encounter - Trena Alexander - 03/23/2011 4:40 PM EDT Labs/mammo due in April documented in this encounter Plan of Treatment Upcoming Encounters Date Type Specialty Care Team Description 10/27/2022 Appointment Radiology Carie Sands APRN [address] [place], [place] [address] (Wo rk) 10/27/2022 Appointment Radiology Carie Sands , DRINK WAITER [address] [place], [place] [address] (Wo rk) documented as of this encounter Results Mammo unilateral digital screening (05/13/2011 1:09 PM EDT) Anatomical Region Laterality Modality Breast N/A Mammography Specimen (Source) Anatomical Collection Method Collection Time Re ceived Time Location / / Volume Laterality 05/13/2011 1:09 PM EDT Narrative 05/14/2011 9:29 AM EDT Reason for Exam: Screening ?? Technique: Craniocaudal (CC) and Medio-l ateral Oblique (MLO) views of the left breast obtained with direct digital capt ure. ?? The exam was evaluated by CAD version 8. 3.17. ?? Findings: ?? This is a negative mammogram (ACR Catego ry 1). ??There is a stable fibroglandular pattern without significa nt change as compared to prior studies. There is no mammographic evidence of can cer. ??The breast is of scattered density. ?? CONCLUSION: This is a NEGATIVE mammogram (ACR Catego ry 1). ?? Routine screening mammography is recomme nded with the frequency dependent upon the patient's age and breast cancer risk factors. A letter has been sent to this patient b y the breast imaging center. Procedure Note Carla Izquierdo MD - 05/14/2011Format ting of this note might be different from the original. Reason for Exam: Screening Technique: Craniocaudal (CC) and Medio-l ateral Oblique (MLO) views of the left breast obtained with direct digital capt ure. The exam was evaluated by CAD version 8. 3.17. Findings: This is a negative mammogram (ACR Catego ry 1). There is a stable fibroglandular pattern without significa nt change as compared to prior studies. There is no mammographic evidence of can cer. The breast is of scattered density. CONCLUSION: This is a NEGATIVE mammogram (ACR Catego ry 1). Routine screening mammography is recomme nded with the frequency dependent upon the patient's age and breast cancer risk factors. A letter has been sent to this patient b y the breast imaging center. Curtis Hung MD IMG MAMMO ORDERABLES (ABNORMAL) Comprehensive metabolic panel (CMP) (05/13/2011 12:52 PM EDT) P athologist Signature Glucose Lvl 86 60 - [...] Organization Address City/State/ZIP Code Phon e Number [place] [phone] CERNER MILLENNIUM CBC (with [...] Platelets 208 145 - 370 CERNER x10(3)/mcL [facility] RDWSD 39.8 35.0 - 46.0 [facility] fL [facility] R[facility] 11.8 10.9 - 14.4 CERNER % [facility] MPV 9.6 9.0 - 12.0 [facility] Specimen Anatomical Collection Method Collection Time Receive d Time (Source) Location / / Volume Laterality Blood specimen 05/13/2011 12:52 1 1:03 (specimen) PM EDT PM EDT Curtis Hung MD HEMATOLOGY ORDERABLES Performing Organization Address City/State/[place] [address] [facility] documented in this encounter Visit Diagnoses Diagnosis Breast cancer - Primary Malignant neoplasm of breast (female), u nspecified site Breast cancer Malignant neoplasm of breast (female), u nspecified site documented in this encounter Care Teams Glove Wrapper Relationship Specialty Start Date End Date Ernie Morales MD PCP - General 10/13/10 08/02/21 documented as of this encounter
--- OUTSIDE RECORDS SUMMARY | 2022-10-08 00:48 | XMS_ITS | Encounter Summary ---
:1955 Author Organization [facility] Address [facility] [address] [place] [address] Care Team Providers Name Role Phone Ernie Morales MD Primary Care Provider Reason for Visit Reason Comments Follow-up Encounter Details Date Type Department Care Team Description 09/20/2013 Follow-Up Hematology and Curtis Hung Infiltra ting ductal carcinoma of breast; Oncology at [facility] GERD (gastroesophageal reflux disease); [facility] Hot flashes; [place] [address] HEMATOLOGY/ONCOLOGY [phone] [facility] [phone] (Wo rk) Social History Tobacco Use Types Packs/Day Years Used Date Smoking Tobacco: Never Smokeless Tobacco: Never Alcohol Use Standard Drinks/Week Comments Not Asked 0.8 (1 standard drink = 0.6 oz pure alco hol) Sex Assigned at Date Recorded Female 07/09/2021 3:12 PM EDT documented as of this encounter Last Filed Vital Signs Vital Sign Reading Time Taken Comments Blood Pressure 125/89 09/20/2013 11:16 AM EDT Pulse 62 09/20/2013 11:16 AM EDT Temperature 36.8 ??C (98.2 ??F) 09/20/2013 11:16 AM EDT Respiratory Rate 18 09/20/2013 11:16 AM EDT Oxygen Saturation 98% 09/20/2013 11:16 AM EDT Inhaled Oxygen Concentration - - Weight 78.5 kg (173 lb 1 oz) 09/20/2013 11:16 AM EDT Height 160 cm (5' 2.99) 09/20/2013 11:16 AM EDT Body Mass Index 30.66 09/20/2013 11:16 AM EDT documented in this encounter Progress Notes Curtis Hung MD - 09/20/2013 11:20 AM EDT Subjective: Patient ID: Dania Adams is a 57 y.o. female, who returns in followup for [...] s/p left reduction mammoplasty. d. Immunohistochemistries ER-/weakly [place]+. 2. Left paraovarian cyst. a. Status post [...] regards to her breast cancer, she has overall been doing well over the last year. She is overall been doing well in regards to her overall health as well. She has had no breast complaints. She has had no signs or symptoms suggestive of recurrent disease. She has had no significant musculoskeletal symptoms other than increasing pain in her left knee, which has been very chronic. 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 She underwent an injection of Synvisc a few months or so ago, which was modestly helpful. She is tentatively planning on considering proceeding with a knee replacement, which sounds like maybe what has been recommended. Additionally she has been having occasional palpitations. She has no other cardiac complaints whatsoever associated with this. They tend to occur more frequently at night. They are occurring at least several times a week or so. She had seen her primary care physician and notes that an office EKG demonstrated occasional PVCs. A Holter monitor is scheduled for further evaluation of this. Review of Systems Except as noted above, [...] daily. ??? CIS Free Text Med - japanese tincture ??? CIS Free Text Med - Fish Gob-Sembd1-Mmy E-Flax Oil ??? PARoxetine (PAXIL) 10 mg tablet 20 MG = 2 Tablet(s), PO, q HS Objective: Physical Exam Filed Vitals: 09/20/13 1116 BP: 125/89 Pulse: 62 Temp: 36.8 ??C (98.2 ??F) TempSrc: Oral Resp: 18 Height: 160 cm (5' 2.99) Weight: 78.5 kg (173 lb 1 oz) SpO2: 98% Objective: Dania Adams is [...] unremarkable, DTR's symmetric throughout. Recent Labs Basename 09/20/13 0947 WBC 5.9 NEUTROABS 3.25 HGB 13.0 HCT 39.6 PLATELET 213 Recent Labs Basename 09/20/13 0947 AST 24 ALT 26 ALKPHOS 85 BILITOT 0.4 Mammo, annual screening. I have preliminary reviewed films in clinic and see no significant findings on exam or change. She had some benign-appearing calcifications that are roughly comparable. Final reading and full comparisons from Radiology pending. Assessment and Plan: Dania returns in followup. Labs, as above, are unremarkable. In regards to her breast cancer, she is overall doing well. I should note her vasomotor symptoms have gotten moderately better over the last year. She has actually self decreased her Paxil to 10 mg p.o. at bedtime, which she remains on. She had been on 20 but with this her hot flashes, she feels, are much better and pretty minimal at present. She is having some occasional palpitations as above, which are being worked up by her primary care physician. I had scheduled a DEXA scan but [...] Team Description 10/27/2022 Appointment Radiology Carie Sands MANAGER CATH LAB [address] [place], [place] [address] (Wo rk) 10/27/2022 Appointment Radiology Carie Sands MANAGER CATH LAB [address] [place], [place] [address] (Wo rk) documented as of this encounter Visit Diagnoses Diagnosis Infiltrating ductal carcinoma of breast Malignant neoplasm of breast (female), u nspecified site GERD (gastroesophageal reflux disease) Esophageal reflux Hot flashes Symptomatic menopausal or female climact iliana states Vertigo Dizziness and giddiness documented in this encounter Care Teams Skidway Worker Relationship Specialty Start Date End Date Enrie Morales MD PCP - General 10/13/10 08/02/21 documented as of this encounter
--- OUTSIDE RECORDS SUMMARY | 2022-10-08 00:48 | XMS_ITS | Encounter Summary ---
:1955 Author Organization [facility] [place] [address] Care Team Providers Name Role Phone Ernie Morales MD Primary Care Provider Encounter Details Date Type Department Care Team Description 05/13/2011 Hospital Encounter Mammography at [facility] [place] [place] [address] Social History Tobacco Use Types Packs/Day Years Used Date Smoking Tobacco: Never Assessed Sex Assigned at Date Recorded Female 07/09/2021 3:12 PM EDT documented as of this encounter Medications at Time of Discharge Medication Sig Dispensed Refills Start Date End Date CIS Free Text Med - 0 05/18/2010 hungarian tincture CIS Free Text Med - Fish 0 05/18/2010 Ksg-Giuox8-Zam E-Flax Oil PARoxetine (PAXIL) 10 mg 20 [...] Description 10/27/2022 Appointment Radiology Carie Sands , REVENUE ENFORCEMENT COLLECTION AGENT [address] [place], [place] [address] (Wo rk) 10/27/2022 Appointment Radiology Carie Sands , REVENUE ENFORCEMENT COLLECTION AGENT [address] [place], [place] [address] (Wo rk) documented as of this encounter Procedures Procedure Name Priority Date/Time Associated Comments Diagnosis MAMMO UNILATERAL Routine 05/13/2011 1:09 PM Breast cancer Resu lts for this DIGITAL SCREENING EDT procedure are [...] center. Curtis Hung MD IMG MAMMO ORDERABLES documented in this encounter Visit Diagnoses Diagnosis Breast cancer Malignant neoplasm of breast (female), u nspecified site documented in this encounter Care Teams Refrigeration Service Inspector Relationship Specialty Start Date End Date Ernie Morales MD PCP - General 10/13/10 08/02/21 documented as of this encounter
--- OUTSIDE RECORDS SUMMARY | 2022-10-08 00:48 | XMS_ITS | Encounter Summary ---
:1955 Author Organization [facility] [address] Care Team Providers Name Role Phone Ernie Morales MD Primary Care Provider Encounter Details Date Type Department Care Team Description 05/12/2016 Hospital Encounter Mammography at [facility] Curtis Hung Infiltrating ductal [facility] MD Carlos carcinoma of breast, [place], [place] CENTER [address] HEMATOLOGY/ONCOL [phone] [place] [address] Social History Tobacco Use Types Packs/Day Years [...] CIS Free Text Med - 0 05/18/2010 amharic tincture CIS Free Text Med - Fish 0 05/18/2010 Dyv-Japzs5-Eys E-Flax Oil PARoxetine (PAXIL) 10 mg 20 [...] Description 10/27/2022 Appointment Radiology Carie Sands , INTEGRITY CONSULTANT [address] [place], [place] [address] (Wo rk) 10/27/2022 Appointment Radiology Carie Sands , INTEGRITY CONSULTANT [address] [place], [place] [address] (Wo rk) documented as of this encounter Procedures Procedure Name Priority Date/Time Associated Diagnosis Comme nts MAMMO SCREENING CAD Routine 05/12/2016 11:40 Infiltrating duct al Results for this AND ALMA LEFT AM EDT carcinoma of breast, proced ure are in right the results section. documented in this encounter Results Mammo Digital Left Screening with CAD and Tomosynthesis (05/12/2016 11:40 AM EDT) Anatomical Region Laterality Modality Breast Left Mammography Specimen (Source) Anatomical Location Collection Method / Collectio n Time Received Time / Laterality Volume Narrative 05/13/2016 1:00 PM EDT EXAMINATION: Unilateral left breast mammogram CLINICAL HISTORY: Personal history of br east cancer. Status post right mastectomy. Technique: CC and MLO views were obtaine d of the left breast using standard 2-D mammography as well as 3-D tomosynthesis . Computer aided detection was used. Comparison: This is compared with prior images. Findings: The breasts are almost entirely fatty. There are no suspicious microcalcificati ons, masses, or areas of distortion. The pattern is stable. Conclusion: No mammographic evidence of malignancy. Recommendation: Routine screening. BI-RADS Category 1: Negative * ??The [employer] an d The Society [...] right documented in this encounter Care Teams Learning Administrator Relationship Specialty Start Date End Date Ernie Morales MD PCP - General 10/13/10 08/02/21 documented as of this encounter
--- OUTSIDE RECORDS SUMMARY | 2022-10-08 00:48 | XMS_ITS | Encounter Summary ---
:1955 Author Organization [facility] [place] [address] Care Team Providers Name Role Phone Ernie Morales MD Primary Care Provider Encounter Details Date Type Department Care Team Description 09/20/2013 Hospital Encounter Mammography at [facility] [place] [address] Social History Tobacco Use Types Packs/Day [...] a week. CIS Free Text Med - south korean 0 05/18/20 10 tincture CIS Free Text Med - Fish 0 05/18/2010 Gbt-Xlixg8-Zct E-Flax Oil PARoxetine (PAXIL) 10 mg 20 MG = 2 Tablet(s), 0 0 05/18/2010 tablet PO, q HS documented as of this encounter Plan of Treatment Upcoming Encounters Date Type Specialty Care Team Description 10/27/2022 Appointment Radiology Carie Sands , FELTMAKER AND WEIGHER [address] [place], [place] [address] (Wo rk) 10/27/2022 Appointment Radiology Carie Sands , FELTMAKER AND WEIGHER [address] [facility] [place] [address] (Wo rk) documented as of this encounter Procedures Procedure Name Priority Date/Time Associated Diagnosis Comme nts MAMMO UNILATERAL STAT 09/20/2013 10:25 Malignant neoplasm R esults for this DIGITAL SCREENING AM EDT of breast (female), pro cedure are in unspecified site the results section. documented in this encounter Results Mammo unilateral digital screening (09/20/2013 10:25 AM EDT) Anatomical Region Laterality Modality Breast N/A Mammography Specimen (Source) Anatomical Collection Method Collection Time Re ceived Time Location / / Volume Laterality 09/20/2013 10:25 AM EDT Narrative 09/21/2013 8:59 AM EDT Reason for Exam: Screening, history of breast cancer Technique: Craniocaudal (CC) and Medio- lateral Oblique (MLO) views of the left breast [...] nded with the frequency dependent upon the patients age and breast cancer risk factors. A letter has been sent to this patient b y the breast imaging center. Procedure Note Jessica Gannon MD - 09/21/2013 Reason for Exam: Screening, history of b reast cancer Technique: Craniocaudal (CC) and Medio- lateral Oblique (MLO) views of the left breast [...] nded with the frequency dependent upon the patients age and breast cancer risk factors. A letter has been sent to this patient b y the breast imaging center. Curtis Hung MD IMG MAMMO ORDERABLES documented in this encounter Visit Diagnoses Diagnosis Breast cancer Malignant neoplasm of breast (female), u nspecified site documented in this encounter Care Teams Aggregate Conveyor Operator Relationship Specialty Start Date End Date Ernie Morales MD PCP - General 10/13/10 08/02/21 documented as of this encounter
--- OUTSIDE RECORDS SUMMARY | 2022-10-08 00:48 | XMS_ITS | Encounter Summary ---
:1955 Author Organization [facility] [place] [address] Care Team Providers Name Role Phone Ernie Morales MD Primary Care Provider Encounter Details Date Type Department Care Team Description 12/03/2015 Orders Only Hematology and Deon, Mary Ann linda ductal Oncology at [facility] M, WOOD DRILL OPERATOR carcinoma of breast, [facility] [address] [place] HEMATOLOGY/ONCOLOGY [address] DEPT. [phone] [place], [place] [address] (Wo rk) Social History Tobacco [...] Team Description 10/27/2022 Appointment Radiology Carie Sands WOOD DRILL OPERATOR [address] [place], [place] [address] (Wo rk) 10/27/2022 Appointment Radiology Carie Sands WOOD DRILL OPERATOR [address] [place], [place] [address] (Wo rk) documented as of this encounter Results Comprehensive metabolic panel (non-fasting) (05/12/2016 12:12 PM EDT) athologist Signature Glucose Lvl 98 65 - 199 [facility] mg/dL [facility] Comment: Diabetes: >=200 mg/dL plus symp toms BUN 14 8 - 18 mg/dL [facility] Creatinine 0.93 0.70 - 1.20 mg/dL [facility] Comment: Please note that the pediatric reference intervals supplied above were not validated at [facility]. Results from pediatri c patients should be interpreted in conjunction to the patient's age, height and muscle mass. Sodium 140 135 - 145 mmol/L [facility] Potassium 4.3 3.5 - 5.0 mmol/L [facility] Comment: Please note: ??Patients with WBC >100,00 0 may have falsely elevated Potassium levels. ??For accurate Potassium quantif ication in these patients send serum separator tube (gold top) for subsequent determinations. ??Contact the Clinical Chemistry Laboratory if there are any qu estions. Chloride 101 98 - 107 mmol/L [facility] CO2 25 22 - 31 mmol/L [facility] Anion Gap 14 5 - 15 mmol/L [facility] Calcium 10.2 8.5 - 10.5 mg/dL [facility] Total Protein 7.3 6.1 - 8.0 gm/dL [facility] Albumin 4.3 3.2 - 5.2 gm/dL [facility] AST 25 0 - 30 unit/L [facility] ALT 25 0 - 30 unit/L [facility] Alk Phos 79 40 - 104 unit/L [facility] Total Bilirubin 0.4 0.2 - 1.3 mg/dL [facility] Bili, Direct 0.1 0.0 - 0.3 mg/dL [facility] Estimated GFR >60 >=60 [facility] Comment: This estimated GFR (eGFR) [...] the following links into your internet browser. [email or web address] [email or web address] Specimen Anatomical Collection Method Collection Time Receive d Time (Source) Location / / Volume Laterality Blood specimen 05/12/2016 12:12 6 (specimen) PM EDT 12:26 PM EDT Resulting Agency Comment Spec In Lab Curtis Hung MD CHEMISTRY ORDERABLES Performing Organization Address City/State/[place] [address] documented in this encounter Visit Diagnoses Diagnosis Infiltrating ductal carcinoma of breast, right documented in this encounter Care Teams Tube Bender Relationship Specialty Start Date End Date Ernie Morales MD PCP - General 10/13/10 08/02/21 documented as of this encounter
--- OUTSIDE RECORDS SUMMARY | 2022-10-08 00:48 | XMS_ITS | Encounter Summary ---
:1955 Author Organization [place] [place] [address] Care Team Providers Name Role Phone Ernie Morales MD Primary Care Provider Encounter Details Date Type Department Care Team Description 05/18/2017 Hospital Encounter Hematology and Infiltr ating ductal Oncology at [facility] carcinoma of breast, [facility] [place] [address] Social History Tobacco Use Types Packs/Day Years Used Date Smoking Tobacco: Never Smokeless Tobacco: Never Alcohol Use Standard Drinks/Week Comments Not Asked 0.8 (1 standard drink = 0.6 oz pure alco hol) Sex Assigned at Date Recorded Female 07/09/2021 3:12 PM EDT documented as of this encounter Medications at Time of Discharge Medication Sig Dispensed Refills Start Date End Date simvastatin (ZOCOR) 20 mg Take 20 mg by mouth 0 0 04/02/2017 Tablet nightly. multivitamin (THERAGRAN) Take 1 tablet by 0 tablet mouth daily. aspirin 81 mg EC tablet Take 81 mg by mouth 0 three times a week. CIS Free Text Med - 0 05/18/2010 romanian tincture CIS Free Text Med - Fish 0 05/18/2010 Qhf-[id number]-Vir E-Flax Oil PARoxetine (PAXIL) 10 mg 20 [...] Specialty Care Team Description 10/27/2022 Appointment Radiology Wicho Carie L , SAFETY PIN ASSEMBLING MACHINE OPERATOR [address] [place], [place] [address] (Wo rk) 10/27/2022 Appointment Radiology Wicho Carie L , SAFETY PIN ASSEMBLING MACHINE OPERATOR [address] [place], [place] [address] (Wo rk) documented as of this encounter Procedures Procedure Name Priority Date/Time Associated Diagnosis Comme nts COMPREHENSIVE Routine 05/18/2017 9:10 Infiltrating ductal Resu lts for this METABOLIC PANEL AM EDT carcinoma of breast, proc edure are in (NON-FASTING) unspecified the results laterality section. documented in this encounter Results (ABNORMAL) Comprehensive metabolic panel (non-fasting) (05/18/2017 9:10 AM EDT) athologist Signature Glucose Lvl 96 65 - 199 [facility] mg/dL [facility] Comment: Diabetes: >=200 mg/dL plus symp toms BUN 18 8 - 18 mg/dL [facility] Creatinine 0.94 0.70 - 1.20 mg/dL [facility] Comment: Please note that the pediatric reference intervals supplied above were not validated at [facility]. Results from pediatri c patients should be interpreted in conjunction to the patient's age, height and muscle mass. Sodium 144 135 - 145 mmol/L [facility] Potassium 4.0 3.5 - 5.0 mmol/L [facility] Comment: Please note: ??Patients with WBC >100,00 0 may have falsely elevated Potassium levels. ??For accurate Potassium quantif ication in these patients send serum separator tube (gold top) for subsequent determinations. ??Contact the Clinical Chemistry Laboratory if there are any qu estions. Chloride 103 98 - 107 mmol/L [facility] CO2 28 22 - 31 mmol/L [facility] Anion Gap 13 5 - 15 mmol/L [facility] Calcium 10.9 (H) 8.5 - 10.5 mg/dL [facility] Total Protein 7.8 6.1 - 8.0 gm/dL [facility] Albumin 4.3 3.2 - 5.2 gm/dL [facility] AST 19 0 - 30 unit/L [facility] ALT 25 0 - 30 unit/L [facility] Alk Phos 77 40 - 104 unit/L [facility] Total Bilirubin 0.4 0.2 - 1.3 mg/dL [facility] Bili, Direct 0.1 0.0 - 0.3 mg/dL [facility] Estimated GFR >60 >=60 [facility] Comment: This estimated GFR (eGFR) [...] the following links into your internet browser. [email or web address] [email or web address] Specimen Anatomical Collection Method Collection Time Receive d Time (Source) Location / / Volume Laterality Blood specimen 05/18/2017 9:10 AM 017 9:26 (specimen) EDT AM EDT Resulting Agency Comment Spec In Lab Curtis Hung MD CHEMISTRY ORDERABLES Performing Organization Address City/State/[place] [address] documented in this encounter Visit Diagnoses Diagnosis Infiltrating ductal carcinoma of breast, unspecified laterality documented in this encounter Care Teams Nuclear Reactor Operator Relationship Specialty Start Date End Date Ernie Morales MD PCP - General 10/13/10 08/02/21 documented as of this encounter
--- OUTSIDE RECORDS SUMMARY | 2022-10-08 00:48 | XMS_ITS | Encounter Summary ---
:1955 Author Organization [facility] Address [address] [place] [address] Care Team Providers Name Role Phone Ernie Morales MD Primary Care Provider Reason for Visit Reason Comments Follow-up Encounter Details Date Type Department Care Team Description 05/12/2016 Office Visit Hematology and Mary Ann Chavarria ductal Oncology [place] [facility] [place], TUBING TESTER carcinoma of breast, [facility] uns pecified laterality [address] [place] HEMATOLOGY/ONCOLOG [address] Y DEPT. [phone] [place], [place] [address] Social History Tobacco Use Types Packs/Day Years Used Date Smoking Tobacco: Never Smokeless Tobacco: Never Alcohol Use Standard Drinks/Week Comments Not Asked 0.8 (1 standard drink = 0.6 oz pure alco hol) Sex Assigned at Date Recorded Female 07/09/2021 3:12 PM EDT documented as of this encounter Last Filed Vital Signs Vital Sign Reading Time Taken Comments Blood Pressure 111/61 05/12/2016 1:47 PM EDT Pulse 51 05/12/2016 1:47 PM EDT Temperature 36.8 ??C (98.2 ??F) 05/12/2016 1:47 PM EDT Respiratory Rate 18 05/12/2016 1:47 PM EDT Oxygen Saturation 98% 05/12/2016 1:47 PM EDT Inhaled Oxygen Concentration - - Weight 80 kg (176 lb 6.4 oz) 05/12/2016 1:47 PM EDT Height - - Body Mass Index 31.26 09/20/2013 11:16 AM EDT documented in this encounter Progress Notes Mary Ann Chavarria, TUBING TESTER - 05/12/2016 11:59 AM EDT Subjective: Patient ID: Dania Adams is a 60 y.o. female, who returns in followup for treatment and managementof her breast cancer, and other medical problems. Her past medical history, social history, and family history are unchanged. Problem List: 1. Infiltrating ductal carcinoma, right breast, August 1997. a. 5-mm cancer, 0/9 lymph nodes. c. s/p right modified radical mastectomy. 1. s/p tram reconstruction. 2. s/p left reduction mammoplasty. d. Immunohistochemistries ER-/weakly [place]+. 2. Left paraovarian cyst. a. Status post [...] of increased dose, 20 mg qhs, 04/30. Interval History: Mrs. Adams is seen today for follow up. She reports to be doing well over the last year. She was having 'arrhythmias' and was started on atenolol. She did recently see her silver plater and had a normal echocardiogram per her report. She denies any cardiopulmonary symptoms currently. She denies any breast issues or concerns. She has arthritic pain in her knees. She takes a vitamin D supplement and multivitamin daily. She is leaving later today for a walking trip on the [facility]. Review of Systems She denies headaches, dizziness, or changes in balance. Denies SOB, cough, recent colds/infections, chest pain or palpitations. Denies nausea, vomiting, diarrhea, constipation or abdominal pain. Deniesany new or worsening skeletal pain. She denies any breast masses, or pain. The remainder of her review of systems is negative. Current Outpatient Prescriptions on File Prior to Visit Medication Sig Dispense Refill ??? propranolol (INDERAL) 20 mg Tablet Take 20 mg by mouth 3 times daily. ??? multivitamin (THERAGRAN) tablet Take 1 tablet by mouth daily. ??? aspirin 81 mg EC tablet Take 81 mg by mouth three times a week. ??? CIS Free Text Med - spanish tincture ??? CIS Free Text Med - Fish [id number] E-Flax Oil ??? PARoxetine (PAXIL) 10 mg tablet 20 MG = 2 Tablet(s), PO, q HS No current facility-administered medications on file prior to visit. Objective: Physical Exam Vitals: 05/12/16 1347 BP: 111/61 Patient Position: Sitting Pulse: 51 Resp: 18 Temp: 36.8 ??C (98.2 ??F) TempSrc: Oral SpO2: 98% Weight: 80 kg (176 lb 6.4 oz) Objective: Dania Adams is well appearing and in no acute distress. HENT: PERRL. EOMi. Musculoskeletal: Within normal limits. Chest: Effort normal. Clear to ausculation. Nodes: No peripheral adenopathy is present. Cor: RRR, S1, S2. No murmur, rub, or S3 present. Breast: R and L breast without palpable masses. Extremities: Without significant cyanosis, clubbing, or edema. Neurologic: Grossly nonfocal Recent Results (from the past 24 hour(s)) Comprehensive metabolic panel (non-fasting) Result Value Ref Range Glucose Lvl 98 65 - 199 mg/dL BUN 14 8 - 18 mg/dL Creatinine 0.93 0.70 - 1.20 mg/dL Sodium 140 135 - 145 mmol/L Potassium 4.3 3.5 - 5.0 mmol/L Chloride 101 98 - 107 mmol/L CO2 25 22 - 31 mmol/L Anion Gap 14 5 - 15 mmol/L Calcium 10.2 8.5 - 10.5 mg/dL Total Protein 7.3 6.1 - 8.0 gm/dL Albumin 4.3 3.2 - 5.2 gm/dL AST 25 0 - 30 unit/L ALT 25 0 - 30 unit/L Alk Phos 79 40 - 104 unit/L Total Bilirubin 0.4 0.2 - 1.3 mg/dL Bili, Direct 0.1 0.0 - 0.3 mg/dL Estimated GFR >60 >=60 Hemogram Result Value Ref Range WBC 6.7 4.0 - 10.0 x10(3)/mcL RBC 4.13 3.93 - 5.22 x10(6)/mcL Hemoglobin 12.9 11.2 - 15.7 gm/dL Hematocrit 38.7 34.0 - 45.0 % MCV 93.7 79.0 - 94.0 fL MCH 31.2 26.6 - 32.2 pg MCHC 33.3 32.0 - 36.5 gm/dL Platelets 201 145 - 370 x10(3)/mcL RDWSD 42.2 35.0 - 46.0 fL RDWCV 12.4 10.9 - 14.4 % MPV 9.7 9.0 - 12.0 fL Differential, Automated Result Value Ref Range Neutrophils % 56.7 % Neutr Abs (ANC) 3.79 1.50 - 6.30 x10(3)/mcL Lymphocytes % 34.2 % Lymphocytes Abs 2.3 1.0 - 3.6 x10(3)/mcL Monocytes % 6.4 % Monocyte Abs 0.4 0.2 - 1.0 x10(3)/mcL Eosinophils % 1.8 % Eosinophils Abs 0.1 0.0 - 0.5 x10(3)/mcL Basophils % 0.6 % Basophils Abs 0.0 0.0 - 0.2 x10(3)/mcL Immature Gran % 0.30 % Ludivina Gran Abs 0.02 0.00 - 0.05 x10(3)/mcL Assessment and Plan: Mrs. Adams is a 60 year old female diagnosed in 1996 with a right breast cancer. She has been doing well over the last year with no breast issues or concerns. The results of her screening mammogram from today are pending. Her CBC and CMP are within normal limits. Mrs. Adams will return for follow up in one year or sooner if needed. She knows she may contact the clinic with any questions, concerns or issues. Mary Ann Chavarria APRN Hematology/Oncology Staff documented in this encounter Plan of Treatment Upcoming Encounters Date Type Specialty Care Team Description 10/27/2022 Appointment Radiology Carie Sands , TUBING TESTER [address] [facility], [place] [address] (Wo rk) 10/27/2022 Appointment Radiology Carie Sands , TUBING TESTER [address] [facility] [address] (Wo rk) documented as of this encounter Results (ABNORMAL) Comprehensive metabolic panel (non-fasting) (05/18/2017 9:10 AM EDT) athologist Signature Glucose Lvl 96 65 - 199 [facility] mg/dL [facility] Comment: Diabetes: >=200 mg/dL plus symp toms BUN 18 8 - 18 mg/dL [facility] Creatinine 0.94 0.70 - 1.20 mg/dL [facility] Comment: Please note that the pediatric reference intervals supplied above were not validated at [facility]. Results from pediatri c patients should be interpreted in conjunction to the patient's age, height and muscle mass. Sodium 144 135 - 145 mmol/L [facility] Potassium 4.0 3.5 - 5.0 mmol/L [facility] Comment: Please note: ??Patients with WBC >100,00 0 may have falsely elevated Potassium levels. ??For accurate Potassium quantif ication in these patients send serum separator tube (gold top) for subsequent determinations. ??Contact the Clinical Chemistry Laboratory if there are any qu estions. Chloride 103 98 - 107 mmol/L [facility] CO2 28 22 - 31 mmol/L [facility] Anion Gap 13 5 - 15 mmol/L [facility] Calcium 10.9 (H) 8.5 - 10.5 mg/dL [facility] Total Protein 7.8 6.1 - 8.0 gm/dL [facility] Albumin 4.3 3.2 - 5.2 gm/dL [facility] AST 19 0 - 30 unit/L [facility] ALT 25 0 - 30 unit/L [facility] Alk Phos 77 40 - 104 unit/L [facility] Total Bilirubin 0.4 0.2 - 1.3 mg/dL [facility] Bili, Direct 0.1 0.0 - 0.3 mg/dL [facility] Estimated GFR >60 >=60 [facility] Comment: This estimated GFR (eGFR) value [...] the following links into your internet browser. [email or web address] Specimen Anatomical Collection Method Collection Time Receive d Time (Source) Location / / Volume Laterality Blood specimen 05/18/2017 9:10 AM 017 9:26 (specimen) EDT AM EDT Resulting Agency Comment Spec In Lab Curtis Hung MD CHEMISTRY ORDERABLES Performing Organization Address City/State/[place] [address] documented in this encounter Visit Diagnoses Diagnosis Infiltrating ductal carcinoma of breast, unspecified laterality documented in this encounter Care Teams Nurse Transitional Relationship Specialty Start Date End Date Ernie Morales MD PCP - General 10/13/10 08/02/21 documented as of this encounter
--- OUTSIDE RECORDS SUMMARY | 2022-10-08 00:48 | XMS_ITS | Encounter Summary ---
:1955 Author Organization [facility] [place] [address] Care Team Providers Name Role Phone Ernie Morales MD Primary Care Provider Encounter Details Date Type Department Care Team Description 08/30/2012 Hospital Encounter Laboratory CLINIC, DR STEPHAN [facility] Curtis Hung MD [facility] HEMATOLOGY/[place] [address] [place] [address] Social History Tobacco Use Types Packs/Day [...] a week. CIS Free Text Med - polish 0 05/18/20 10 tincture CIS Free Text Med - Fish 0 05/18/2010 Eek-Nlmyw5-Kel E-Flax Oil PARoxetine (PAXIL) 10 mg 20 MG = 2 Tablet(s), 0 0 05/18/2010 tablet PO, q HS documented as of this encounter Plan of Treatment Upcoming Encounters Date Type Specialty Care Team Description 10/27/2022 Appointment Radiology WichoCindy lowekevin Parker , RESIDENTIAL SUBSTANCE ABUSE COUNSELOR [address] [place], [place] [address] (Wo rk) 10/27/2022 Appointment Radiology Wicho Carie L , RESIDENTIAL SUBSTANCE ABUSE COUNSELOR [address] [place], [place] [address] (Wo rk) documented as of this encounter Visit Diagnoses Not on filedocumented in this encounter Care Teams Freight Associate Relationship Specialty Start Date End Date Ernie Morales MD PCP - General 10/13/10 08/02/21 documented as of this encounter
--- OUTSIDE RECORDS SUMMARY | 2022-10-08 00:48 | XMS_ITS | Encounter Summary ---
:1955 Author Organization [place] [address] Care Team Providers Name Role Phone Ernie Morales MD Primary Care Provider Reason for Visit Reason Comments Heartburn Encounter Details Date Type Department Care Team Description 06/11/2011 Office Visit Gastroenterology at [facility] Cullen, GERD [facility] Medhat Cali MD ([place] [address] [place] [address] reflux disease) [phone] CENTER (Primary Dx) [place] [address] Social History Tobacco Use Types Packs/Day Years Used Date Smoking Tobacco: Never Smokeless Tobacco: Never Alcohol Use Standard Drinks/Week Comments Not Asked 0 (1 standard drink = 0.6 oz pure alcoho l) Sex Assigned at Date Recorded Female 07/09/2021 3:12 PM EDT documented as of this encounter Last Filed Vital Signs Vital Sign Reading Time Taken Comments Blood Pressure 117/65 06/11/2011 1:02 PM EDT Pulse 65 06/11/2011 1:02 PM EDT Temperature - - Respiratory Rate - - Oxygen Saturation - - Inhaled Oxygen Concentration - - Weight 73.9 kg (163 lb) 06/11/2011 1:02 PM EDT Height 164 cm (5' 4.57) 06/11/2011 1:02 PM EDT Body Mass Index 27.49 06/11/2011 1:02 PM EDT documented in this encounter Progress Notes Terrence Berman MD - 06/11/2011 2:00 PM EDT HISTORY: Dania Adams presents for further evaluation of GERD symptoms. Had NDO plication 2004. This controlled symptoms until 2 to 3 years ago. Developed a gnawing feeling in her stomach and voice alteration. Had nocturnal pyrosis again. [place] a pop before symptoms returned. Went back to [place] and took omeprazole again. Now in 8th week of PPIs and gnawing sensation is gone. Had persistent heartburn, relieved a bit by Tums. If she uses the ppi at bedtime, can be more comfortable At night, with some early am pyrosis. Has occasional regurgitation. No dysphagia. No odynophagia. Weight slowly dropping, excellent appetite. Has been healthy. Dad was alcoholic Mom had [place] 2B colon cancer age 64. He last colonoscopy was within past few years, second one for her, and both normal. PMHx: s/p mastectomy Normal bone density Patient Active Problem List Diagnoses Code ??? Infiltrating ductal carcinoma of breast 174.9BZ ??? GERD (gastroesophageal reflux disease) 530.81S ??? Hot flashes 627.2X ??? Vertigo 780.4K PHYSICAL EXAM: Filed Vitals: 06/11/11 1302 BP: 117/65 Pulse: 65 NAD No thyromegaly No adenopathy Normal breath sounds Normal heart exam Benign abdomen, surgical scars. IMPRESSION: GERD, and she is s/p NDO plication 2004. Got excellent relief until a few years ago..will do upper endoscopy. Consider for impedance ON MES if no esophagitis seen. Consider for futiure endoscopic procedures vs cont meds vs lap sharon fundoplication 45 minutes spent in direct [id number] discussion of symptoms and planning further management. PLAN: Upper endoscopy June 16 8 am Terrence Berman MD Section of Gastroenterology and Hepatology documented in this encounter Plan of Treatment Upcoming Encounters Date Type Specialty Care Team Description 10/27/2022 Appointment Radiology Carie Sands , ALTERATION WORKROOM SUPERVISOR [address] [place], [place] [address] (Wo rk) 10/27/2022 Appointment Radiology Carie Sands , ALTERATION WORKROOM SUPERVISOR [address] [place], [place] [address] (Wo rk) documented as of this encounter Visit Diagnoses Diagnosis GERD (gastroesophageal reflux disease) - Primary Esophageal reflux documented in this encounter Care Teams Python Architect Relationship Specialty Start Date End Date Ernie Morales MD PCP - General 10/13/10 08/02/21 documented as of this encounter
--- OUTSIDE RECORDS SUMMARY | 2022-10-08 00:48 | XMS_ITS | Encounter Summary ---
:1955 Author Organization [facility] [place] [address] Care Team Providers Name Role Phone Ernie Morales MD Primary Care Provider Encounter Details Date Type Department Care Team Description 05/18/2017 Hospital Encounter [place] [facility] Curtis Hung Infiltrating ductal [facility] MD Carlos carcinoma of breast, [facility] unspecified [place], [place] [address] [address] HEMATOLOGY/ONCOL [phone] [place] [address] Social History Tobacco Use Types Packs/Day Years [...] CIS Free Text Med - 0 05/18/2010 wolof tincture CIS Free Text Med - Fish 0 05/18/2010 Ozt-Hmbke8-Kzi E-Flax Oil PARoxetine (PAXIL) 10 mg 20 [...] Description 10/27/2022 Appointment Radiology Carie Sands , BATTERY STACKER [address] [place], [place] [address] (Wo rk) 10/27/2022 Appointment Radiology Carie Sands , BATTERY STACKER [address] [place], [place] [address] (Rosalie rk) documented as of this encounter Procedures Procedure Name Priority Date/Time Associated Diagnosis Comme nts MAMMO SCREENING CAD Routine 05/18/2017 9:27 AM Infiltrating du ctal Results for this AND VINNY LEFT EDT carcinoma of breast, proced ure are in unspecified the results laterality section. documented in this encounter Results Mammo Screen CAD and Vinny Left (Generic) (05/18/2017 9:27 AM EDT) Anatomical Region Laterality Modality Breast Left Mammography Specimen (Source) Anatomical Location Collection Method / Collectio n Time Received Time / Laterality Volume Narrative 05/18/2017 9:46 AM EDT EXAMINATION: Unilateral left breast mammogram CLINICAL HISTORY: Personal history of br east cancer. Status post right mastectomy. Technique: CC and MLO views were obtaine d of the left breast using standard 2-D mammography as well as 3-D tomosynthesis . Computer aided detection was used. Comparison: This is compared with prior images. Findings: There are scattered areas of fibroglandu lar density. There are no suspicious microcalcificati ons, masses, or areas of distortion. The pattern is stable. Conclusion: No mammographic evidence of malignancy. Recommendation: Routine annual screening . BI-RADS Category 1: Negative * ??The [employer] an d The Society [...] laterality documented in this encounter Care Teams Inspector And Adjuster Golf [employer] Head Relationship Specialty Start Date End Date Ernie Morales MD PCP - General 10/13/10 08/02/21 documented as of this encounter
--- OUTSIDE RECORDS SUMMARY | 2022-10-08 00:51 | XMS_ITS ---
:1955 Author Care Team Providers Name Role Phone DR. CHELSIE VALERIO Primary Care Provider [phone] Allergies Code Code System Name Reaction Severity Status Onset NKDA ? Medications Name Status Start Date Stop Date ? ? Tiffanie Active ? Not available Aspir-81 Active ? Not available atorvastatin 20 mg tablet Active ? Not av ailable Fish Oil Active ? Not available Glucosamine Active ? Not available omeprazole Active ? Not available paroxetine 10 mg tablet Active ? Not avai lable Take 1 tablet every day by oral route. Notes: Medication_Name: PARoxetine HCl - Medication_Name: Fish Oil - Medication_Name: Omeprazole - Medication_Name: Multi Vit/Fl - Medication_Name: Glucosamine - Medication_Name: Aspir-81 - Medication_Name: Tiffanie Allergy - Problems Name Status Onset Date Source ? Localized, Primary Osteoarthritis Active ? History Osteoarthritis of Knee Active ? History Knee Pain Active ? Encounter Procedures Date Name Performed by ? 11/21/2002 Orthopaedic Surgery Information not marito cerrato Notes: l knee 11/21/1973 Orthopaedic Surgery Information not marito cerrato Notes: l knee 05/29/2013 X-ray, Knee [facility] Radiology [address] [place] [address] (Work Place) Results Lab Results None recorded. Past Encounters None recorded. Social History Tobacco Smoking Status Never Smoker Vaccine List None recorded. Plan of Care Reminders Provider Appointments None recorded. ? ? Lab None recorded. ? ? Referral None recorded. ? ? Procedures None recorded. ? ? Surgeries None recorded. ? ? Imaging None recorded. ? ? Vitals 06/11/2013 Weight BMI 162 lbs 28.7 kg/m2 05/30/2013 10:30AM NEW PATIENT Height Weight BMI 5 ft 3 in 170 lbs 30.1 kg/m2
--- OUTSIDE RECORDS SUMMARY | 2022-10-08 00:51 | XMS_ITS ---
:1955 Author Organization [employer] Address [address] [place] [address] Care Team Providers Name Role Phone Art Avery Unavailable Unavailable PROBLEMS Type Condition ICD9-CM Code UTS23-OK Onset Condition SNOMED Code Code Dates Status Problem Hyperlipidemia, E78.5 Active 5582 2004 unspecified hyperlipidemia type Problem SVT I47.1 Active 3331340 (supraventricular tachycardia) Problem Depression, F32.9 Active 07044379 unspecified depression type ALLERGIES Substance Reaction Event Type Date Status Morphine Sulfate decrease resp rate Drug Allergy May, Activ e ENCOUNTERS Encounter Location Date Diagnosis [place] [facility] [address] [facility] May, [place] [address] [address] Apr, [place] [address] [address] Apr, [place] [address] [place] [facility] [address] [facility] Apr, SCRE[place] [address] Z12.11 ; Fam chino hx of colon cancer Z80.0 and SVT (supraventricula r tachycardia) I47.1 [place] [facility] [address] March, [place] [address] [place] [facility] [address] [facility] Feb, [place] [address] [address] Jun, COLON CA SCREE RENATO V76.51 [place] [address] [address] Jun, [place] [address] [facility] [facility] [address] [facility] [address] 28 Apr, 2013 COLON CA SCREENING V76.51 OFFICE [place] [address] LPO-SPECIALTY TEAM [address] [facility] Feb, [place] [address] [facility] [address] [facility] 14 Nov, 2010 [place] [address] [place] [facility] [address] [facility] Feb, [place] [address] LPO-SPECIALTY TEAM [address] 24 Feb, 2009 Bunion of g reat toe 727.1 [place] [address] Breast cance r, female 174.9 [place] [facility] [address] 09 Feb, [address] PHYSICIANS 8 [facility] SUITE Oct, PHYSIC AL- ADULT V70.0 OFFICE 1 [place], [place] [address] [place] [address] PHYSICIANS 8 [facility] SUITE Sep, PHYSIC AL- ADULT V70.0 [address] PHYSICIANS 8 [facility] SUITE Sep, PHYSIC AL- ADULT V70.0 OFFICE [address] PHYSICIANS 8 [facility] SUITE Aug, OFFICE [address] PHYSICIANS 8 [facility] SUITE Aug, OFFICE 1 [place] [address] 19 Jul, 2008 [place] [address] [address] [facility] [address] 19 Jul, [address] PHYSICIANS 8 [facility] SUITE Jul, Headac he 784.0 and JAW DISEASE OFFICE 1 [place], [place] NOS 526.[address] [place] [address] PHYSICIANS 8 [facility] SUITE Jun, OFFICE [address] PHYSICIANS 8 [facility] SUITE Jun, OFFICE [address] PHYSICIAN [address] 11 Jun, 2008 Screening colonoscopy V76.[address] PHYSICIANS 8 [facility] SUITE March, PHYSIC AL- ADULT V70.0 OFFICE 1 [place], [place] [id number] [place] [address] PHYSICIANS 8 [facility] SUITE March, PHYSIC AL- ADULT V70.0 ; OFFICE 1 [place] Hypercholestero lemia 272.0 and [address] HYPERCALCEMIA 27 5.42 [place] [facility]ANS 8 [facility] SUITE March, OFFICE [address] PHYSICIANS 8 [facility] SUITE Feb, PHYSIC AL- ADULT V70.0 OFFICE [address] PHYSICIANS 8 [facility] SUITE Aug, HYPERC ALCEMIA 275.42 and OFFICE 1 [place], [place] Hypokalemia [address] [place] [address] PHYSICIANS 8 [facility] SUITE Jul, HYPERC ALCEMIA 275.42 OFFICE [address] PHYSICIANS 8 [facility] SUITE March, OFFICE 1 [place] [address] [place] [facility] 8 [facility] SU[address] March, OFFICE 1 [place] [address] [place] [facility] 8 [facility] SU[address] Jan, OFFICE 1 [place] [address] [place] [facility] 8 [facility] SU[address] Jan, OFFICE 1 [place] [address] [place] [facility] 8 [facility] SUITE Jan, Psoria sis 696.1 OFFICE 1 [place] [address] IMMUNIZATIONS Vaccine Route Administration Date Status Zostavax HISTORY Unknown Dec 04, 2010 Administered Zostavax HISTORY Unknown Dec 04, 2010 Administered Influenza HISTORY Unknown Aug 18, 2012 Administered Influenza HISTORY Unknown Aug 31, 2011 Administered Influenza HISTORY Unknown Sep 04, 2010 Administered TD HISTORY Unknown January 20, 2016 Administered SOCIAL HISTORY Qualifiers Date Never Smoker REASON FOR REFERRAL FUNCTIONAL STATUS PLAN OF CARE VITAL SIGNS Height 63 in 2018-04-24 Height 63 in 2013-05-18 Height 63 in 2009-03-14 Height N/A in 2008-10-25 Height N/A in 2008-07-01 Height N/A in 2008-04-16 Weight 179 lbs 2018-04-24 Weight 173.3 lbs 2013-05-18 Weight 161 lbs 2009-03-14 Weight N/A lbs 2008-10-25 Weight N/A lbs 2008-07-26 Weight N/A lbs 2008-07-01 Weight N/A lbs 2008-04-16 Weight N/A lbs 2007-09-07 Weight N/A lbs 2007-01-24 BMI 31.70 kg/m2 2018-04-24 BMI 30.70 kg/m2 2013-05-18 BMI 28.52 kg/m2 2009-03-14 BMI N/A kg/m2 2008-10-25 BMI N/A kg/m2 2008-07-01 BMI N/A kg/m2 2008-04-16 Temperature 98.1 degrees Fahrenheit 2018-04-24 Temperature TYMPANIC:97.9 degrees Fahrenheit 2013-04 Temperature 97.5 degrees Fahrenheit 2009-03-14 Temperature N/A degrees Fahrenheit 2008-10-25 Temperature N/A degrees Fahrenheit 2008-07-26 Temperature N/A degrees Fahrenheit 2008-04-16 Temperature N/A degrees Fahrenheit 2007-09-07 Temperature N/A degrees Fahrenheit 2007-01-24 Heart Rate 55 /min 2018-04-24 Heart Rate 70 /min 2013-05-18 Heart Rate 78 /min 2009-03-14 Heart Rate N/A /min 2008-10-25 Heart Rate N/A /min 2008-07-26 Heart Rate N/A /min 2008-07-01 Heart Rate N/A /min 2008-04-16 Heart Rate N/A /min 2007-09-07 Heart Rate N/A /min 2007-01-24 Respiratory Rate 17 /min 2018-04-24 Respiratory Rate 16 /min 2013-05-18 Respiratory Rate 16 /min 2009-03-14 Respiratory Rate N/A /min 2008-10-25 Respiratory Rate N/A /min 2008-07-26 Respiratory Rate N/A /min 2008-07-01 Respiratory Rate N/A /min 2008-04-16 Respiratory Rate N/A /min 2007-01-24 Oximetry 98 % 2018-04-24 Oximetry 95 % 2013-05-18 Oximetry N/A % 2008-10-25 Oximetry N/A % 2008-07-26 Oximetry N/A % 2008-04-16 Oximetry N/A % 2007-09-07 Oximetry N/A % 2007-01-24 Blood pressure systolic 110 mm Hg 2018-04-24 Blood pressure diastolic 63 mm Hg 2018-04-24 MEDICATIONS Medication Instructions Dosage Frequency Start End Duration Statu s Date Date Atenolol 25 mg orally once a 1 tab(s) 24h Ac tive day Co Q-10 100 mg orally once a 2 cap(s) 24h Ac tive day Claritin 10 mg orally once a 1 tab(s) 24h Ac tive day -VITAMIN D 2000 as directed Acti ve IU FISH OIL 1000MG as directed 24h Acti ve POTASSIUM orally once a 1 tab(s) 24h Active CHLORIDE 99 mg day Simvastatin 20 orally once a 1 tab(s) Ac tive mg day (at bedtime) VITAMIN B12 sublingually 1 tab(s) 24h Active 2500 mcg once a day ORTHOTHICS as directed Active Paxil 10 mg orally daily 1 tab 24h Active Clobetasol applied 1 dane 12h Active Propionate topically 2 0.05% times a day ASPIRIN LOW orally SUN and 1 tab(s) Acti ve STRENGTH 81 mg Tues PROCEDURES Procedure Date Ordered Result Body Site ELECTROCARDIOGRAM, TRACING Sept 05, 2008 ELECTROCARDIOGRAM REPORT Jul 26, 2008 COLONOSCOPY (in procedures) 2018-04-24 Normal, recall 5 ye ars RESULTS Name Result Date Reference Range COLONOSCOPY,a 2013-06-25 TSH 2010-12-04 THYROID STIMULATING HORMONE 1.613 0.34 0-5.600 LIPID W/ CALCULATED LDL 2010-12-04 CHOLESTEROL 260 0-200 TRIGLYCERIDE 149 88-142 HDL 47 39-96 LDL 182 5-99 CHOL/HDL 5.5 0.0-4.5 COMPMET 2010-12-04 GLUCOSE 98 74-118 BUN 11 8-26 CREATININE STANDARDIZED 0.78 0.50-1.1 5 ESTIMATED GLOMERULAR FILTRATION >60 SODIUM 139 136-144 POTASSIUM 4.2 3.7-5.0 CHLORIDE 104 101-111 CARBON DIOXIDE 30 22-32 CALCIUM 10.0 8.8-10.3 TOTAL PROTEIN 6.7 6.5-8.1 ALBUMIN 3.6 3.5-5.0 TOTAL BILIRUBIN 1.0 0.3-1.2 DIRECT BILIRUBIN 0.1 0.1-0.5 ALKALINE PHOSPHATASE 63 38-126 AST 23 15-41 ALT 24 14-54 X ray: Cervical Spine 2-3 Views Mammo: (Unilat-DIAGNOSTIC) LIPID W/ CALCULATED LDL CHOLESTEROL TRIGLYCERIDE HDL LDL CALC LDL DIRECT CHOL/HDL zzCholesterol zzHdl zzTriglycerides zzChol/HDL LDL CALC* LIVER FUNCTION TESTS ALBUMIN ALKALINE PHOSPHATASE ALT AST DIRECT BILIRUBIN TOTAL BILIRUBIN TOTAL PROTEIN zzTOTAL BILI TOTAL PROTEIN* ALBUMIN* TOTAL BILI* DIRECT BILI* ALT* AST* ALKALINE PHOS* CALCIUM Calcium CALCIUM COLONOSCOPY,a DEXA: Hip and Spine CPT-27610 TSH 2008-04-12 THYROID STIMULATING HORMONE LIPID W/ CALCULATED LDL 2008-04-15 CHOLESTEROL TRIGLYCERIDE HDL LDL CALC LDL DIRECT CHOL/HDL zzCholesterol zzHdl zzTriglycerides zzChol/HDL LDL CALC* GLUCOSE FASTING 2008-04-12 GLUCOSE GLUCOSE FASTING GLUCOSE* CALCIUM 2008-04-16 Calcium CALCIUM HDL Cholesterol 2008-03-21 HDL CBC WITH AUTO DIFF 2007-12-15 CORRECT ANC WBC HGB HCT PLATELET RBC MCV MCH MCHC RDW MPV ANC #IG #LYMPH #EOS #MONO #BASO NEUTROPHIL % IG% LYMPHOCYTE % MONOCYTE % EOSINOPHIL % BASOPHIL % ATYP LYMPH PLT MORPH PROMYELO MACRO MICRO NRBC HYPO BLAST ANISO BAND BASO EOS LYMPH META MONO MYELO POIK RBC MORPH SEG MANUAL DIFF #IMM GRAN %IMM GRAN POTASSIUM 2007-09-07 Potassium 4.1 3.6-5.1 CALCIUM 2007-09-07 Calcium 10.4 8.9-10.3 PARATHYROID HORMONE, INTACT CYTO: PAP SMEAR-Screening RESULT CBC WITH AUTO DIFF CORRECT ANC WBC 3.9 HGB 14.1 HCT 40.8 PLATELET 221 RBC 4.36 MCV 93.6 MCH 32.3 MCHC 34.5 RDW 11.4 MPV 7.7 ANC 1.7 #IG #LYMPH #EOS #MONO #BASO NEUTROPHIL % 43.5 IG% LYMPHOCYTE % 39.9 MONOCYTE % 12.7 EOSINOPHIL % 3.0 BASOPHIL % 0.9 ATYP LYMPH PLT MORPH PROMYELO MACRO MICRO NRBC HYPO BLAST ANISO BAND BASO EOS LYMPH META MONO MYELO POIK RBC MORPH SEG MANUAL DIFF #IMM GRAN %IMM GRAN TSH THYROID STIMULATING HORMONE 0.59 LIPID W/ CALCULATED LDL CHOLESTEROL 196 TRIGLYCERIDE 150 HDL 38 LDL CALC LDL DIRECT 124 CHOL/HDL zzCholesterol zzHdl zzTriglycerides zzChol/HDL LDL CALC* Mammo: Screening REASON FOR VISIT update surgical hx, colonoscopy/MAC, colonoscopy/MAC, colonscopy, referral done , referred for colonoscopy , pt states she has no concerns , new pt info, [place] recall [place]erguson, colonoscopy, colonoscopy, Colonoscopy Screening, Meds reviewed by pt,dose change as follows:paxil is now 10mg changed per her provider /rd, pt had flu vaccine in 07/2012 at [facility] , new pt info, c'scopy screening, 755 lab,COMP PE--patient cancelled 08/29, returning call to Melinda/rd, new patient, also takes spectra 405-R2 Qam and B-12 complex, just to check feet and her rgt eye tears all the time and they sting, Orthotics , CPE/NO PAP, order labs, order labs, would like script for claritin, COLONOSCOPY. Patient came to procedure clinic for colonoscopy screening done by Savi card RN, HX-mastectomy for ca, mother and maternal great aunt with colon cancer, colonoscopy-normal, sigmoidoscopy-normal, and Ba enema mildly redundant colon, COLONOSCOPY, headaches, Headache while doing exercise, headaches/pw, Patient came to procedure clinic for colonoscopy screening done by M A kyaw RN, HX-mastectomy for ca, mother and maternal great aunt with colon cancer, colonoscopy- normal, sigmoidoscopy-normal, and Ba enema mildly redundant colon, needs dexa at [facility], cpe no pap discuss several issues, lab orders to [facility], enter labs, f/u [facility] CALCIUM LEVEL TOO HIGH, POTASSIUM WAS LOW, f/u [facility], labwork, RETURNING RH CALL , STARTING W/KIDNEY STOEN SYMPTOMS, FYI - the ecezema creamis working great!!, cream, RASH Insurance Providers [facility] Member Patient Patient Patient Patient Patient Subscriber Subscriber Subscriber Group Insurance Plan Plan Plan Plan ID Relationship Address Phone Name Date of ID Name Date of No Type Insurance Insurance Insurance Coverage to Subscriber Address Phone Name Dates HEALTH [address] self [place] [id number] PLANS INC [facility] PLANS [facility] [address] [address] [place] self [place] [id number] [facility] [place] [address] [place] [address] [address]OSS [address] [place] self [place] [id number] [facility] JUST[place] [address] [place] [address] SELF PAY self [place] [id number] [place] [id number] SELF PAY self [place] [id number] AFTER BLUE [place] [address] [place] HEALTH [address] self [place] [id number] PLANS INC [facility] PLANS INC [place] [facility] [id number] SELF PAY self [place] [id number] AFTER [place] [address] SELF PAY self [place] [id number] [place] [address] INS BLUE CROSS [address] BLUE CROSS self [place] [id number] [facility] [place] [address] [place] [address] MEDICARE 3000 GOFFS MEDICARE self [place] [id number] [facility] [id number] [address] self [place] [id number] JUSTINO [facility] [id number] GENERAL [address] self [place] [id number] INSURANCE 2000 INSURANCE [facility] [id number] SELF PA[address] SELF PAY self [place] [id number] AFTER BLUE [place] [address] SELF PAY self [place] [id number] [facility] [place] [address] INS BLUE CROSS [address] BLUE CROSS self [place] [id number] [employer]WAYS [facility] [place] [id number]
--- NOTE | 2022-10-08 07:15 | DI.MRI_ITS ---
Exam(s) MR IAC BRAIN WO/W EXAM: MR IAC BRAIN WO/W CLINICAL HISTORY: Right Assym. HL, tinnitus, vertigo,h90.3,r42 TECHNIQUE: Multiplanar multisequence MRI of the brain was performed. Both noninfused and contrast i nfused sequences were performed. IV Contrast injected was 18 cc Dotarem. COMPARISON: No exams were available for comparison FINDINGS: CEREBRAL PARENCHYMA: No evidence of intracranial hemorrhage, mass effect nor shift of midline structu re. No extraaxial fluid collections. Ventricles are not enlarged nor shifted. There is no significant focal signal abnormality in the cerebellar hemispheres nor within the meche, m idbrain, and thalami. There are few small nonspecific FLAIR bright foci of white matter signal abnormality, all measuring l ess than 3 millimeters. No evidence of enhancement nor restricted diffusion at these levels. There are no ring enhancing lesions in the brain. There is no abnormal meningeal enhancement. INTERNAL AUDITORY CANALS: There are no masses in the cerebellopontine angles. Also no evidence of in tra canalicular acoustic neuroma-schwannoma. The 7th and 8th cranial nerves appear unremarkable with in the internal auditory canals. PITUITARY GLAND: No mass nor parasellar abnormality. No obvious abnormality in the cavernous sinuses. FLOW VOIDS: The expected flow void are noted. No evidence of obvious aneurysm nor obvious vascular ma lformation. PARANASAL SINUSES: The visualized paranasal sinuses appear unremarkable. Mastoid air cells are also c lear bilaterally. ORBITS: No obvious abnormal findings. IMPRESSION: 1. No significant intracranial findings on this MRI scan of the brain. 2. No evidence of mass in the cerebellopontine angles and no evidence of intra canalicular acoustic n euroma-schwannoma. 3. There are few small nonspecific white matter signal foci which are not associated with hemorrhage , surrounding edema, enhancement, nor restricted diffusion. Probably related to microvascular change s. DATA REPOSITORY:
[2022-10-08] MEDS: Normal Saline Flush 10 ML SYR IVP (10:39)
[2022-10-08] MEDS: Gadoterate meglumine 20 ML VIAL 18 ML IVP (10:40)
== END ==
PROVIDERS: PCP Nurse Practitioner Family; Visit Provider Otolaryngology
DX: H90.3 Sensorineural hearing loss, bilateral (principal); R42 Dizziness and giddiness
CPT/HCPCS: 70553

== ENCOUNTER 2022-12-31 00:04 | Outpatient (CLI) | payer MEDICARE, SELFPAY ==
--- OUTSIDE RECORDS SUMMARY | 2022-12-31 00:06 | XMS_ITS ---
Author Name Art Avery Address [address] [place] [address] Organization [employer] Address [address] [place] [address] Care Team Providers Care Dog Control Officer Name Role Phone Art Avery Unavailable [phone] PROBLEMS Type Condition ICD9-CM Code ZQU99-EF Code Onset Dates Condition Status SNOMED Code Problem Hyperlipidemia, unspecified hyperlipidemia type E78.5 Active 31661193 Problem SVT (supraventricular tachycardia) I47.1 Active 7409336 Problem Depression, unspecified depression type F32.9 Active 25843830 ALLERGIES Substance Reaction Event Type Date Status Morphine Sulfate decrease resp rate Drug Allergy May, 2 018 Active ENCOUNTERS Encounter Location Date Diagnosis [facility] [address] [place] [address] May, SURGERY [address] [place] [address] Apr, SURGERY [address] [place] [address] Apr, [facility] [address] [place] [address] Apr, SCREENING FOR COLON CANCER Z12.11 ; Family hx of colon cancer Z80.0 and SVT (supraventricular tachycardia) I47.1 [facility] [address] [place] [address] March, [facility] [address] [place] [address] Feb, SURGERY [address] [place] [address] Jun, COLON CA SCREENING V76.[address] [place] [address] Jun, [facility] [address] [place] [address] Apr, COLON CA SCREENING V76.51 [facility] [address] [place] [address] Feb, [facility] [address] [place] [address] 14 Nov, 2010 [facility] [address] [place] [address] Feb, [facility] [address] [place] [address] Feb, Bunion of great toe 727.1 an d Breast cancer, female 174.9 [facility] [address] [place] [address] 09 Feb, 2009 [facility] [address] [address] 05 Oct, 2008 PHYSICAL- ADULT V70.0 [facility] [address] [address] Sep, PHYSICAL- ADULT V70.0 [facility] [address] [address] Sep, PHYSICAL- ADULT V70.0 [facility] [address] [address] Aug, [facility] [address] [address] Aug, [place] [address] [place] [address] Jul, [place] [address] [place] [address] Jul, [facility] [address] [address] 05 Jul, 2008 Headache 784.0 and JAW DISEA SE NOS 526.9 [facility] [address] [address] Jun, [facility] [address] [address] Jun, [facility] [address] [place] [address] Jun, Screening colonoscopy V76.51 [facility] [address] [address] March, PHYSICAL- ADULT V70.0 [facility] [address] [address] March, PHYSICAL- ADULT V70.0 ; Hypercholesterolemia 272.0 and HYPERCALCEMIA 275.42 [facility] [address] [address] March, [facility] [address] [address] Feb, PHYSICAL- ADULT V70.0 [facility] [address] [address] Aug, HYPERCALCEMIA 275.42 and Hypokalemia 276.8 [facility] [address] [address] Jul, HYPERCALCEMIA 275.42 [facility] [address] [facility] [address] [place] [address] March, [facility] [address] [place] [address] March, [facility] [address] [place] [address] Jan, [facility] [address] [place] [address] Jan, [facility] [address] [place] [address] Jan, Psoriasis 696.1 IMMUNIZATIONS Vaccine Route Administration Date Status Zostavax HISTORY Unknown Dec 04, 2010 Administere d Zostavax HISTORY Unknown Dec 04, 2010 Administere d Influenza HISTORY Unknown Aug 18, 2012 Administe red Influenza HISTORY Unknown Aug 31, 2011 Administer ed Influenza HISTORY Unknown Sep 04, 2010 Administer ed TD HISTORY Unknown January 20, 2016 Administered [...] N/A kg/m2 2008-04-16 Temperature 98.1 degrees Fahrenheit Temperature TYMPANIC:97.9 degrees Fahrenheit 2013-05-18 Temperature 97.5 degrees Fahrenheit Temperature N/A degrees Fahrenheit 5 Temperature N/A degrees Fahrenheit 5 Temperature N/A degrees Fahrenheit 2008-03-22 7 Temperature N/A degrees Fahrenheit 2007-08-21 8 Temperature N/A degrees Fahrenheit 6 Heart Rate 55 /min 2018-04-24 Heart Rate [...] 2007-01-24 Blood pressure systolic 110 mm Hg Blood pressure diastolic 63 mm Hg 2018-04 MEDICATIONS Medication Instructions Dosage Frequency Start Date End Date Duration Status Atenolol 25 mg orally once a day 1 tab(s) 24h Active Co Q-10 100 mg orally once a day 2 cap(s) 24h Active Claritin 10 mg orally once a day 1 tab(s) 24h Active -VITAMIN D 2000 IU as directed Active FISH OIL 1000MG as directed 24h Active POTASSIUM CHLORIDE 99 mg orally once a day 1 tab(s) 24h Active Simvastatin 20 mg orally once a day (at bedtime) 1 tab(s) Active VITAMIN B12 2500 mcg sublingually once a day 1 tab(s) 24h Active ORTHOTHICS as directed A ctive Paxil 10 mg orally daily 1 tab 24h Active Clobetasol Propionate 0.05% applied topically 2 times a day 1 dane 12h Active ASPIRIN LOW STRENGTH 81 mg orally SUN and Tues 1 tab(s) Active PROCEDURES Procedure Date Ordered Result Body Site ELECTROCARDIOGRAM, TRACING Jul 26, 2008 ELECTROCARDIOGRAM REPORT Jul 26, 2008 COLONOSCOPY (in procedures) 2018-04-24 Normal, recal l 5 years RESULTS Name Result Date Reference Range COLONOSCOPY,a 2013-06-25 TSH 2010-12-04 THYROID STIMULATING HORMONE 1.613 0.340-5.600 LIPID W/ CALCULATED LDL 2010-12-04 CHOLESTEROL 260 0-200 TRIGLYCERIDE 149 88-142 HDL 47 39-96 LDL 182 5-99 CHOL/HDL 5.5 0.0-4.5 COMPMET 2010-12-04 GLUCOSE 98 74-118 BUN 11 8-26 CREATININE STANDARDIZED 0.78 0.50 -1.15 ESTIMATED GLOMERULAR FILTRATION >60 SODIUM 139 136-144 POTASSIUM 4.2 3.7-5.0 CHLORIDE 104 101-111 CARBON DIOXIDE 30 22-32 CALCIUM 10.0 8.8-10.3 TOTAL PROTEIN 6.7 6.5-8.1 ALBUMIN 3.6 3.5-5.0 TOTAL BILIRUBIN 1.0 0.3-1.2 DIRECT BILIRUBIN 0.1 0.1-0.5 ALKALINE PHOSPHATASE 63 38-126 AST 23 15-41 ALT 24 14-54 X ray: Cervical Spine 2-3 Views Mammo: (Unilat-DIAGNOSTIC) LIVER FUNCTION TESTS ALBUMIN ALKALINE PHOSPHATASE ALT AST DIRECT BILIRUBIN TOTAL BILIRUBIN TOTAL PROTEIN zzTOTAL BILI TOTAL PROTEIN* ALBUMIN* TOTAL BILI* DIRECT BILI* ALT* AST* ALKALINE PHOS* LIPID W/ CALCULATED LDL CHOLESTEROL TRIGLYCERIDE HDL LDL CALC LDL DIRECT CHOL/HDL zzCholesterol zzHdl zzTriglycerides zzChol/HDL LDL CALC* CALCIUM Calcium CALCIUM COLONOSCOPY,a DEXA: Hip and Spine CPT-60254 TSH 2008-04-12 THYROID STIMULATING HORMONE LIPID W/ [...] has no concerns , new pt info, [place] recall [place], colonoscopy, colonoscopy, Colonoscopy Screening, Meds reviewed by pt,dose change as follows:paxil is now 10mg changed per her provider /rd, pt had flu vaccine in 07/2012 at [facility] , new pt info, c'scopy screening, 755 l ab, COMP PE--patient cancelled 08/29, returning call to Melinda/rd, new patient, also takes spectra 405-R 2 Qam and B-12 complex, just to check feet and her rgt eye tears all the time and they sting, Orthotics , CPE/NO PAP, order labs, order labs, would like script for claritin, COLONOSCOPY. Patientcame to procedure clinic for colonoscopy screening done [...] enema mildly redundant colon, needs dexa at [facility], cpe no pap discuss several issues, lab orders to [facility], enter labs, f[facility]u [facility] CALCIUM LEVEL TOO HIGH, POTASSIUM WAS LOW, f/[place] [facility] labwork, RETURNING [facility] CALL , STARTING W/KIDNEY STOEN SYMPTOMS, FYI - the ecezema cream is working great!!, cream, RASH Insurance Providers Health Insurance Type Health Plan Insurance Address Health Plan Insurance Phone Health Plan Insurance Name Health Plan Coverage Dates Member ID Patient Relationship to Subscriber Patient Address Patient Phone Patient Name Patient Date of Subscriber ID Subscriber Name Subscriber Date of Group No [employer] [address] [place] [address] [employer] self MARIAMA JUSTINO [id number] [employer] [address] [place] [address] [employer] self MARIAMA JUSTINO [id number] MEDICARE [address] [facility] [id number] MEDICARE self MARIAMA JUSTINO [id number] SELF PAY NO INSURANCE ANY STREET [facility] [address] SELF PAY NO INSURANCE self MARIAMA JUSTINO [id number] GENERAL INSURANCE [address] [facility] [id number] GENERAL INSURANCE self MARIAMA JUSTINO [id number] HEALTH PLANS [facility] [address] [facility] [address] HEALTH PLANS [facility] self MARIAMA JUSTINO [id number] HEALTH PLANS [facility] [address] [facility] [address] HEALTH PLANS INC self MARIAMA JUSTINO [id number] SELF PAY GENERAL INS [address] STREET [facility] [address] SELF PAY GENERAL INS self MARIAMA JUSTINO [id number] SELF PAY AFTER BLUE CROSS [address] ST[address]ET [facility] [id number] SELF PAY AFTER BLUE CROSS self MARIAMA JUSTINO [id number] [place] [address] [place] [id number] [place] self MARIAMA JUSTINO [id number] [employer] [address] [place] [address] [employer] self MARIAMA JUSTINO [id number] [employer] [address] [place] [address] [employer] self MARIAMA JUSTINO [id number] SELF PAY GENERAL INS [address]RE[address] [facility] [address] SELF PAY GENERAL INS self MARIAMA JUSTINO [id number] SELF PAY AFTER BLUE CROSS ANY [facility] [address] SELF PAY AFTER BLUE CROSS self MARIAMA BADILLO [id number] SELF PAY AFTER BLUE CROSS ANY [facility] SELF PAY AFTER BLUE CROSS self MARIAMA BADILLO [id number]
--- NOTE | 2022-12-31 14:30 | DI.DEXA_ITS ---
Exam(s) XR DEXA BONE DENSITY W/WO [place]APHA EXAM: XR DEXA BONE DENSITY W/WO [place]APHA CLINICAL HISTORY: ESTROGEN DEFICIENCY, E28.39 TECHNIQUE: COMPARISON: No exams were available for comparison FINDINGS: Lateral Spine Image: Unremarkable. No compression deformities identified. Left hip: Total T-Score: 0.5 Total Z-Score: 1.9 T- and Z-scores: Within normal limits. Lumbar Spine: Total T-Score: 1.1 Total Z-Score: 3.0 T- and Z-scores: Within normal limits. IMPRESSION: No evidence of osteoporosis.
--- NOTE | 2022-12-31 15:20 | DI.MAMMO_ITS ---
Exam(s) MG MAMMO SCREENING 60 MIN DUR EXAM: MG MAMMO SCREENING 60 MIN DUR CLINICAL HISTORY: SCREENING, Z12.31; PERSONAL H/O BREAST CA, MODIFIED RT MASTECTOMY TECHNIQUE: Left full field digital CC and MLO mammographic images were obtained with 3D tomosynthesi s and utilizing computer aided detection (CAD). COMPARISON: Available for comparison. FINDINGS: The patient is status post right mastectomy Masses/Architectural Distortion: None seen. Microcalcifications: No suspicious pleomorphic-type are seen. Skin Thickening/Nipple Retraction: None. IMPRESSION: 1. No significant interval change with no specific features of malignancy noted. 2. Unless there is more urgent need, screening mammography is recommended, as per [employer] guidelines. 3. Findings were discussed with the patient on the date of the examination. BI-RADS Category 2 - Benign Findings Breast Density - Category B - Scattered areas of fibroglandular density Breast density category C or D implies that the patient has dense breast tissue. Dense breast tissue is very common and is not abnormal but dense breast tissue can make it harder to find cancer on a ma mmogram. Also, dense breast tissue may increase their breast cancer risk. This information about the result of the mammogram report was provided to the patient to raise their awareness. Use this report when you speak with the patient about their risks for breast cancer, which includes their family hist ory. At that time, you may recommend for more screening tests (Ultrasound or MRI) as they might be us eful based on their risk. A negative radiographic report should not delay biopsy if a dominant or clinically suspicious mass is present. Up to ten percent of cancers are not identified on mammography. A negative report may reinforce clinical impression. Adenosis and dense breasts may obscure an underlying neoplasm. False positive reports average 6 to 10%. Patient will receive a letter notifying them of these results.
== END 2022-12-31 00:24 ==
LOC: DI 00:05
PROVIDERS: PCP Nurse Practitioner Family; Visit Provider Nurse Practitioner Family
DX: E28.39 Other primary ovarian failure (principal); Z12.31 Encounter for screening mammogram for malignant neoplasm of breast; Z13.820 Encounter for screening for osteoporosis
CPT/HCPCS: 77063; 77067; 77080

== ENCOUNTER 2024-08-20 02:27 | Outpatient (CLI) | payer MEDICARE, SELFPAY ==
--- NOTE | 2024-08-20 | DI.MRI_ITS ---
Exam(s) MR BRAIN WO EXAM: MR BRAIN WO CLINICAL HISTORY: VISION CHANGES, H53.9 HEADACHE UNSPECIFIED R51.9 TECHNIQUE: Multiplanar multisequence MRI of the brain was performed. COMPARISON: MR MR IAC BRAIN WO/W from 10/08/2022 FINDINGS: Exam is limited by motion on the axial and sagittal T2 weighted sequences. VENTRICLES AND EXTRA AXIAL SPACES: Normal in size and morphology for the patient's age. MIDLINE SHIFT: None. CEREBRAL PARENCHYMA: No focus of restricted diffusion to suggest acute infarct. No space-occupying le shivani identified. Minimal she atrophy consistent with the patient's age. Mild scattered foci of high signal in the white matter consistent with sequela of chronic microvascular disease. HEMORRHAGE: None. BRAINSTEM/CEREBELLUM: Normal. VISUALIZED PARANASAL SINUSES/MASTOIDS:Clear. Vasculature: Normal flow void. PITUITARY GLAND: Unremarkable. ORBITS: Unremarkable. Optic nerves and extraocular muscles appear symmetric. IMPRESSION: Unremarkable MRI of the brain. DATA REPOSITORY:
== END 2024-08-20 02:47 ==
LOC: DI 02:27
PROVIDERS: PCP Nurse Practitioner Family; Visit Provider Nurse Practitioner Family
DX: H53.9 Unspecified visual disturbance (principal); R51.9 Headache, unspecified
CPT/HCPCS: 70551